=== PATIENT | male | born 1935 | race Caucasian/White ===

== ENCOUNTER 2016-09-30 20:02 | Inpatient (IN) | payer MEDICARE, BC ==
[~2016-09-30] VITALS: Ht 177.8 cm; Wt 99.8 kg
--- NOTE | 2016-09-30 20:19 | PHYS DOC ---
Past Medical History Past Medical History: Diabetes-Type II Additional Past Medical Histor: sleep apnea Past Surgical History: Knee Replacement Additional Past Surgical Histo: cataracts, surgery for sleep apnea Alcohol Use: None Drug Use: None Adult General Chief Complaint Chief Complaint: ABDOMINAL PAIN HPI HPI Patient is a 81 year old female who presents with epigastric/lower chest discomfort. He reports about 3 hours ago he had onset of a fullness/pain in his lower chest/epigastrium. He is also little bit short of breath. No clear inciting or mitigating factors. On his way to the ED, he started having a mild nagging pain between his shoulder blades as well. He did not take any meds for symptoms prior to coming to the emergency department. No prior similar episodes. Review of Systems Review of Systems Constitutional: Denies fever or chills Eyes: Denies change in visual acuity or eye pain HENT: Denies nasal congestion or sore throat Respiratory: Denies cough or shortness of breath Cardiovascular: Lower chest discomfort GI: Epigastric pain. Denies nausea, vomiting, bloody stools or diarrhea : Denies dysuria or hematuria Musculoskeletal: Mild nagging pain between shoulder blades Integument: Denies rash or skin lesions Neurologic: Denies headache, focal weakness or sensory changes Current Medications Current Medications Current Medications Medications (Trade) Dose Ordered Sig/Olivia Start Time Stop Time Status Last Admin Dose Admin Aspirin (Children'S Aspirin) 324 mg 1X ONCE 09/30/16 20:45 09/30/16 20:46 DC 09/30/16 20:29 324 MG Morphine Sulfate 4 mg 1X ONCE 09/30/16 21:15 09/30/16 21:16 DC 09/30/16 21:20 4 MG Nitroglycerin (Nitrostat) 0.4 mg PRN Q5MIN PRN 09/30/16 20:30 09/30/16 23:59 09/30/16 20:33 0.4 MG Allergies Allergies Allergies Coded Allergies Type Severity Reaction Last Updated Verified meperidine Allergy Unknown 02/28/16 Yes Physical Exam Physical Exam Constitutional: Well developed, well nourished, no acute distress, non-toxic appearance HENT: Normocephalic, atraumatic, bilateral external ears normal Eyes: EOMI, conjunctiva normal, no discharge Neck: Normal range of motion, no stridor Cardiovascular: Heart rate normal, regular rhythm, murmur noted Lungs & Thorax: Bilateral breath sounds clear to auscultation Abdomen: Bowel sounds normal, soft, non-distended, mild epigastric TTP without guarding or rebound Skin: Warm, dry, no erythema, no rash Back: No tenderness, no lesion or deformity Extremities: No obvious deformity, BLE edema. Equal b/l radial pulses. Neurologic: Alert and oriented X 3, no gross deficits noted Current Patient Data Vital Signs Vital Signs Date Time Temp Pulse Resp B/P Pulse Ox O2 Delivery O2 Flow Rate FiO2 09/30/16 21:20 23 92 Room Air 09/30/16 20:37 99 139/75 09/30/16 20:05 98.1 98.1 Lab Values Laboratory Tests Test 09/30/16 20:25 White Blood Count 12.0x10^3/uL (4.0-11.0) H Red Blood Count 4.56x10^6/uL (4.30-5.70) Hemoglobin 13.6g/dL (13.0-17.5) Hematocrit 41.2% (39.0-53.0) Mean Corpuscular Volume 91fL (79-100) Mean Corpuscular Hemoglobin 30pg (25-35) Mean Corpuscular Hemoglobin Concent 33g/dL (31-37) Red Cell Distribution Width 14.5% (11.5-14.5) Platelet Count 226x10^3/uL (140-400) Neutrophils (%) (Auto) 70% (31-73) Lymphocytes (%) (Auto) 21% (24-48) L Monocytes (%) (Auto) 8% (0-9) Eosinophils (%) (Auto) 1% (0-3) Basophils (%) (Auto) 0% (0-3) Neutrophils # (Auto) 8.4x10^3uL (1.8-7.7) H Lymphocytes # (Auto) 2.5x10^3/uL (1.0-4.8) Monocytes # (Auto) 1.0x10^3/uL (0.0-1.1) Eosinophils # (Auto) 0.1x10^3/uL (0.0-0.7) Basophils # (Auto) 0.0x10^3/uL (0.0-0.2) Sodium Level 139mmol/L (136-145) Potassium Level 3.6mmol/L (3.5-5.1) Chloride Level 102mmol/L (98-107) Carbon Dioxide Level 25mmol/L (21-32) Anion Gap 12 (6-14) Blood Urea Nitrogen 20mg/dL (8-26) Creatinine 0.9mg/dL (0.7-1.3) Estimated GFR (Cockcroft-Gault) 80.6 Glucose Level 179mg/dL (70-99) H Calcium Level 9.1mg/dL (8.5-10.1) Total Bilirubin 0.3mg/dL (0.2-1.0) Direct Bilirubin 0.1mg/dL (0.0-0.2) Aspartate Amino Transferase (AST) 11U/L (15-37) L Alanine Aminotransferase (ALT) 21U/L (16-63) Alkaline Phosphatase 117U/L (46-116) H Troponin I Quantitative < 0.017ng/mL (0.000-0.055) FO-Bti-Y-Type Natriuretic Peptide 32pg/mL (0-449) Total Protein 7.7g/dL (6.4-8.2) Albumin 3.8g/dL (3.4-5.0) Lipase 87U/L (73-393) Laboratory Tests 09/30/16 20:25 Laboratory Tests 09/30/16 20:25 EKG EKG EKG (my read): sinus rhythm, rate 91, LAD, prolonged OH interval, no acute ischemic changes Radiology/Procedures Radiology/Procedures CXR (my read): No acute abnormality Course & Med Decision Making Course & Med Decision Making Pertinent Labs and Imaging studies reviewed. (See chart for details) Patient is 81-year-old male who presents with lower chest/epigastric discomfort as well as shortness of breath. Obvious concern for possibility of ACS. Will check EKG, chest x-ray, labs to evaluate. Aspirin and nitroglycerin ordered. EKG without acute ischemic changes by my reading. Chest x-ray okay per my read. Labs notable for mild leukocytosis. Troponin within normal limits. Discussed results with patient, who continues to have a little discomfort. Dose of morphine ordered, which helped improve pain. Discussed with Dr. Sotomayor, will admit under his care for further evaluation and treatment. Cardiology consult entered. Dragon Disclaimer Dragon Disclaimer This electronic medical record was generated, in whole or in part, using a voice recognition dictation system. Departure Departure Impression: Primary Impression: Chest pain Additional Impression: SOB (shortness of breath) Disposition: 09 ADMITTED INPATIENT Admitting Physician: Candido Sotomayor Condition: STABLE Referrals: ROBERT MIRANDA MD (PCP) Problem Qualifiers RIAZ ELENA MD Sep 30, 2016 20:19
[2016-09-30] MEDS ORDERED: NITROGLYCERIN SUBLINGUAL 0.4 MG BOTTLE OF 25. SL PRN ×2 (20:30→21:45)
[2016-09-30 20:31] LABS: BASO % 0 % (0-3); EOS % 1 % (0-3); HEMATOCRIT 41.2 % (39.0-53.0); HEMOGLOBIN 13.6 g/dL (13.0-17.5); LYMPH # 2.5 x10^3/uL (1.0-4.8); LYMPH % 21 % (24-48); MEAN CORPUSCULAR HEMOGLOBIN 30 pg (25-35); MEAN CORPUSCULAR HGB CONC 33 g/dL (31-37); MEAN CORPUSCULAR VOLUME 91 fL (79-100); MONO % 8 % (0-9); NEUT % 70 % (31-73); PLATELET COUNT 226 x10^3/uL (140-400); RED BLOOD COUNT 4.56 x10^6/uL (4.30-5.70); RED CELL DISTRIBUTION WIDTH 14.5 % (11.5-14.5)
[2016-09-30 20:45] LABS: CALCIUM 9.1 mg/dL (8.5-10.1); CREATININE 0.9 mg/dL (0.7-1.3); GFR 80.6; POTASSIUM 3.6 mmol/L (3.5-5.1)
[2016-09-30] MEDS ORDERED: ASPIRIN 81 MG TAB.CHEW PO ONE (20:45)
[2016-09-30 20:51] LABS: ALBUMIN 3.8 g/dL (3.4-5.0); DIRECT BILIRUBIN 0.1 mg/dL (0.0-0.2); TOTAL BILIRUBIN 0.3 mg/dL (0.2-1.0); TOTAL PROTEIN 7.7 g/dL (6.4-8.2)
[2016-09-30] MEDS ORDERED: MORPHINE SULFATE 4 MG/ML DISP.SYRIN. IV ONE (21:15)
[2016-09-30] MEDS ORDERED: ONDANSETRON PF 4 MG/2 ML VIAL. IV PRN (21:45)
[2016-09-30] MEDS ORDERED: DEXTROSE 50% 25 GM / 50ML DISP.SYRIN. IV PRN (21:45)
[2016-09-30] MEDS ORDERED: ACETAMINOPHEN 325 MG TABLET. PO PRN (21:45)
[2016-09-30 23:18] VITALS: BP 141/80
[2016-10-01] VITALS (7 sets, daily range): BP systolic 112–134; BP diastolic 63–84
[2016-10-01] MEDS ORDERED: LEVO50TA (04:26)
[2016-10-01] MEDS ORDERED: INSU100I13 (04:26)
[2016-10-01] MEDS ORDERED: INSU100I17 (04:26)
[2016-10-01] MEDS ORDERED: METF10002 (04:26)
--- NOTE | 2016-10-01 06:19 | EKG ---
[facility] [address] [place] [address] Test Date: 2016-09-30 Test Time: 20:11:04 Pat Name: ANDRES MARTINEZ Department: Room: Gender: M [employer]ile [employer] Technician: : [id number] Requested By: RIAZ ELENA Order Number: [id number] Reading MD: Measurements Intervals [place] Rate: 91 P: 12 CO: 216 QRS: -24 QRSD: 90 T: 28 QT: 360 QTc: 444 Interpretive Statements SINUS RHYTHM PROLONGED CO INTERVAL LEFTWARD AXIS ABNORMAL ECG RI6.01 No previous ECG available for comparison
[2016-10-01] MEDS ORDERED: INSULIN ASPART 300 UNITS/3 ML INSULN.PEN SQ SCH (08:00)
[2016-10-01] MEDS: MORPHINE SULFATE 4 MG/ML DISP.SYRIN. IV PRN ×2 (08:52→15:05)
[2016-10-01 09:06] LABS: BILIRUBIN,URINE NEGATIVE (NEG); GLUCOSE,URINE NEGATIVE (NEG); NITRITE,URINE NEGATIVE (NEG)
--- NOTE | 2016-10-01 09:27 | RAD ---
Indication chest pain and shortness of breath. PA and lateral views of the chest were obtained. Comparison is made to an examination 02/28/2016. There are chronic changes. There is moderate hyperexpansion. An acute finding is not seen. The heart and pulmonary vessels are within normal limits. A small hiatus hernia is noted. There are degenerative changes in the thoracic spine and about the right shoulder. IMPRESSION: Chronic changes. No acute finding. No significant change
[2016-10-01 09:30] LABS: BACTERIA,URINE FEW /HPF (0-FEW); PROTEIN,URINE NEGATIVE (NEG-TRACE); RBC,URINE RARE /HPF (0-2); WBC,URINE OCC /HPF (0-4)
[2016-10-01] MEDS ORDERED: ACETAMINOPHEN 325 MG TABLET. PO PRN (09:30)
[2016-10-01] MEDS ORDERED: DEXTROSE 50% 25 GM / 50ML DISP.SYRIN. IV PRN (09:30)
[2016-10-01] MEDS ORDERED: ALBUTEROL SULFATE 2.5 MG/3 ML NEBU. NEB PRN (09:30)
[2016-10-01] MEDS ORDERED: hydrALAZINE 20 MG/ML VIAL. IVP PRN (09:30)
[2016-10-01] MEDS ORDERED: ONDANSETRON PF 4 MG/2 ML VIAL. IV PRN (09:30)
[2016-10-01] MEDS: LEVOTHYROXINE 50 MCG TABLET PO SCH (10:00)
[2016-10-01] MEDS: METFORMIN 1,000 MG TABLET PO SCH (10:00)
--- NOTE | 2016-10-01 11:37 | PDOC1 ---
History and Physical Current Problem List Problem List Problems Medical Problems: (1) Chest pain Status: Acute (2) SOB (shortness of breath) Status: Acute Current Medications Current Medications Current Medications Medications (Trade) Dose Ordered Sig/Olivia Start Time Stop Time Status Last Admin Dose Admin Acetaminophen (Tylenol) 325 mg PRN Q6HRS PRN 10/01/16 09:30 Acetaminophen/ Hydrocodone Bitart (Lortab 5/325) 1 tab PRN Q6HRS PRN 10/01/16 09:30 Albuterol Sulfate (Ventolin Neb Soln) 2.5 mg PRN Q4HRS PRN 10/01/16 09:30 Aspirin (Children'S Aspirin) 324 mg 1X ONCE 09/30/16 20:45 09/30/16 20:46 DC 09/30/16 20:29 324 MG Dextrose 12.5 gm PRN Q15MIN PRN 10/01/16 09:30 UNV Hydralazine HCl (Apresoline) 10 mg PRN Q4HRS PRN 10/01/16 09:30 Insulin Aspart (Novolog) 0-9 UNITS TIDWMEALS 10/01/16 12:00 Insulin Detemir (Levemir) 10 units QHS 10/01/16 21:00 Levothyroxine Sodium (Synthroid) 50 mcg DAILY07 10/01/16 10:00 Metformin HCl (Glucophage) 1,000 mg DAILYWBKFT 10/01/16 10:00 Morphine Sulfate 4 mg PRN Q2HR PRN 09/30/16 21:45 10/01/16 21:44 10/01/16 08:52 4 MG Nitroglycerin (Nitrostat) 0.4 mg PRN Q5MIN PRN 09/30/16 21:45 10/01/16 21:44 Ondansetron HCl (Zofran) 4 mg PRN Q8HRS PRN 10/01/16 09:30 Allergies Allergies Allergies Coded Allergies Type Severity Reaction Last Updated Verified meperidine Allergy Unknown 02/28/16 Yes ROS Review of System CONSTITUTIONAL: NO FEVER EYES: No recent changes SKIN: No rash or itching CARDIOVASCULAR: No chest pain, syncope, palpitations, or edema RESPIRATORY: No SOB or cough GASTROINTESTINAL: EPIGASTRIC ABDOMINAL PAIN NEUROLOGICAL: CONFUSION ENDOCRINE: No cold or heat intolerance GENITOURINARY: URINATION THIS AM MUSCULOSKELETAL: No back pain or joint pain LYMPHATICS: No enlarged lymph nodes PSYCHIATRIC: No anxiety or depression Physical Exam Physical Exam GEN.: No apparent distress. Alert and oriented. HEENT: Head is normocephalic, atraumatic NECK: Supple. NO JVD LUNGS: Clear to auscultation. normal air flow HEART: RRR, S1, S2 present. Peripheral pulses intact ABDOMEN: Soft, nontender. Positive bowel sounds. EXTREMITIES: Without any cyanosis. NEUROLOGIC: slow to respond, alert, oriented to self, not able to provide good hx, PSYCHIATRIC: unknown baseline,mild confusion SKIN: No visible ulcerations Vitals Vitals Vital Signs Date Time Temp Pulse Resp B/P Pulse Ox O2 Delivery O2 Flow Rate FiO2 10/01/16 11:05 98.3 110 20 124/73 95 Room Air 98.3 Labs Labs Laboratory Tests Test 09/30/16 20:25 09/30/16 23:01 10/01/16 05:35 10/01/16 07:00 White Blood Count 12.0x10^3/uL (4.0-11.0) Red Blood Count 4.56x10^6/uL (4.30-5.70) Hemoglobin 13.6g/dL (13.0-17.5) Hematocrit 41.2% (39.0-53.0) Mean Corpuscular Volume 91fL (79-100) Mean Corpuscular Hemoglobin 30pg (25-35) Mean Corpuscular Hemoglobin Concent 33g/dL (31-37) Red Cell Distribution Width 14.5% (11.5-14.5) Platelet Count 226x10^3/uL (140-400) Neutrophils (%) (Auto) 70% (31-73) Lymphocytes (%) (Auto) 21% (24-48) Monocytes (%) (Auto) 8% (0-9) Eosinophils (%) (Auto) 1% (0-3) Basophils (%) (Auto) 0% (0-3) Neutrophils # (Auto) 8.4x10^3uL (1.8-7.7) Lymphocytes # (Auto) 2.5x10^3/uL (1.0-4.8) Monocytes # (Auto) 1.0x10^3/uL (0.0-1.1) Eosinophils # (Auto) 0.1x10^3/uL (0.0-0.7) Basophils # (Auto) 0.0x10^3/uL (0.0-0.2) Sodium Level 139mmol/L (136-145) Potassium Level 3.6mmol/L (3.5-5.1) Chloride Level 102mmol/L (98-107) Carbon Dioxide Level 25mmol/L (21-32) Anion Gap 12 (6-14) Blood Urea Nitrogen 20mg/dL (8-26) Creatinine 0.9mg/dL (0.7-1.3) Estimated GFR (Cockcroft-Gault) 80.6 Glucose Level 179mg/dL (70-99) Calcium Level 9.1mg/dL (8.5-10.1) Total Bilirubin 0.3mg/dL (0.2-1.0) Direct Bilirubin 0.1mg/dL (0.0-0.2) Aspartate Amino Transf (AST/SGOT) 11U/L (15-37) Alanine Aminotransferase (ALT/SGPT) 21U/L (16-63) Alkaline Phosphatase 117U/L (46-116) Troponin I Quantitative < 0.017ng/mL (0.000-0.055) < 0.017ng/mL (0.000-0.055) UU-Ijv-K-Type Natriuretic Peptide 32pg/mL (0-449) Total Protein 7.7g/dL (6.4-8.2) Albumin 3.8g/dL (3.4-5.0) Lipase 87U/L (73-393) Glucose (Fingerstick) 183mg/dL (70-99) Urine Collection Type Unknown Urine Color Yellow Urine Clarity Clear Urine pH 7.0 Urine Specific [place] 1.025 Urine Protein Negativemg/dL (NEG-TRACE) Urine Glucose (UA) Negativemg/dL (NEG) Urine Ketones (Stick) Tracemg/dL (NEG) Urine Blood Negative (NEG) Urine Nitrite Negative (NEG) Urine Bilirubin Negative (NEG) Urine Urobilinogen Dipstick 1.0mg/dL (0.2 mg/dL) Urine Leukocyte Esterase Negative (NEG) Urine RBC Rare/HPF (0-2) Urine WBC Occ/HPF (0-4) Urine Squamous Epithelial Cells None/LPF Urine Bacteria Few/HPF (0-FEW) Urine Mucus Slight/LPF Test 10/01/16 07:34 10/01/16 09:35 10/01/16 11:32 Glucose (Fingerstick) 190mg/dL (70-99) 208mg/dL (70-99) Troponin I Quantitative < 0.017ng/mL (0.000-0.055) Laboratory Tests Test 09/30/16 20:25 09/30/16 23:01 10/01/16 05:35 10/01/16 07:00 White Blood Count 12.0x10^3/uL (4.0-11.0) Red Blood Count 4.56x10^6/uL (4.30-5.70) Hemoglobin 13.6g/dL (13.0-17.5) Hematocrit 41.2% (39.0-53.0) Mean Corpuscular Volume 91fL (79-100) Mean Corpuscular Hemoglobin 30pg (25-35) Mean Corpuscular Hemoglobin Concent 33g/dL (31-37) Red Cell Distribution Width 14.5% (11.5-14.5) Platelet Count 226x10^3/uL (140-400) Neutrophils (%) (Auto) 70% (31-73) Lymphocytes (%) (Auto) 21% (24-48) Monocytes (%) (Auto) 8% (0-9) Eosinophils (%) (Auto) 1% (0-3) Basophils (%) (Auto) 0% (0-3) Neutrophils # (Auto) 8.4x10^3uL (1.8-7.7) Lymphocytes # (Auto) 2.5x10^3/uL (1.0-4.8) Monocytes # (Auto) 1.0x10^3/uL (0.0-1.1) Eosinophils # (Auto) 0.1x10^3/uL (0.0-0.7) Basophils # (Auto) 0.0x10^3/uL (0.0-0.2) Sodium Level 139mmol/L (136-145) Potassium Level 3.6mmol/L (3.5-5.1) Chloride Level 102mmol/L (98-107) Carbon Dioxide Level 25mmol/L (21-32) Anion Gap 12 (6-14) Blood Urea Nitrogen 20mg/dL (8-26) Creatinine 0.9mg/dL (0.7-1.3) Estimated GFR (Cockcroft-Gault) 80.6 Glucose Level 179mg/dL (70-99) Calcium Level 9.1mg/dL (8.5-10.1) Total Bilirubin 0.3mg/dL (0.2-1.0) Direct Bilirubin 0.1mg/dL (0.0-0.2) Aspartate Amino Transf (AST/SGOT) 11U/L (15-37) Alanine Aminotransferase (ALT/SGPT) 21U/L (16-63) Alkaline Phosphatase 117U/L (46-116) Troponin I Quantitative < 0.017ng/mL (0.000-0.055) < 0.017ng/mL (0.000-0.055) FJ-Tmn-X-Type Natriuretic Peptide 32pg/mL (0-449) Total Protein 7.7g/dL (6.4-8.2) Albumin 3.8g/dL (3.4-5.0) Lipase 87U/L (73-393) Glucose (Fingerstick) 183mg/dL (70-99) Urine Collection Type Unknown Urine Color Yellow Urine Clarity Clear Urine pH 7.0 Urine Specific [place] 1.025 Urine Protein Negativemg/dL (NEG-TRACE) Urine Glucose (UA) Negativemg/dL (NEG) Urine Ketones (Stick) Tracemg/dL (NEG) Urine Blood Negative (NEG) Urine Nitrite Negative (NEG) Urine Bilirubin Negative (NEG) Urine Urobilinogen Dipstick 1.0mg/dL (0.2 mg/dL) Urine Leukocyte Esterase Negative (NEG) Urine RBC Rare/HPF (0-2) Urine WBC Occ/HPF (0-4) Urine Squamous Epithelial Cells None/LPF Urine Bacteria Few/HPF (0-FEW) Urine Mucus Slight/LPF Test 10/01/16 07:34 10/01/16 09:35 10/01/16 11:32 Glucose (Fingerstick) 190mg/dL (70-99) 208mg/dL (70-99) Troponin I Quantitative < 0.017ng/mL (0.000-0.055) VTE Prophylaxis Ordered VTE Prophylaxis Devices: Yes VTE Pharmacological Prophylaxi: Contraindicated VASIREDDI,ERLINDA R MD Oct 01, 2016 11:37
[2016-10-01] MEDS ORDERED: IV NORMAL SALINE 1000ML BAG 1,000 ML IV ONE (11:45)
[2016-10-01] MEDS: PANTOPRAZOLE 40 MG TABLET. PO SCH (12:00)
[2016-10-01] MEDS: INSULIN ASPART 300 UNITS/3 ML INSULN.PEN SQ SCH ×2 (12:00→19:00)
--- NOTE | 2016-10-01 12:07 | HP ---
ADMIT DATE: 10/01/2016 CHIEF COMPLAINT: Abdominal pain. HISTORY OF PRESENT ILLNESS: An 81-year-old male patient presented to the ER with complaints of epigastric lower chest pain, presented 3-4 hours prior to arrival and described it as a fullness. Denies any radiation, sometimes she will have shoulder pain and at the time of my examination, the patient is still complaining of mild abdominal pain, but it is better. However, he is confused and his alertness is decreased and very slow to respond to my questions. As per RN, he had urinary incontinence last night and also she says he is whole different personal compared to his admission time. I am not able to get good history from patient and I reviewed his old records, no previous admission seen. However, as per the ER, he has a past history of diabetes and sleep apnea. PAST MEDICAL HISTORY: Type 2 diabetes mellitus and sleep apnea. PAST SURGICAL HISTORY: Knee replacement and cataracts. PERSONAL HISTORY: No smoking, no alcohol, no drug abuse. FAMILY HISTORY: Not able to obtain. ALLERGIES: Meperidine. REVIEW OF SYSTEMS AND PHYSICAL EXAMINATION: Please see my electronic H and P. LABORATORY DATA: Chemistry: Sodium 139, potassium 3.6, chloride is 102, anion gap is 12, BUN is 20, creatinine is 0.9, GFR is 80.6, glucose 179, AST 21, ALT is 11, and alkaline phosphatase 117. Hematology: WBC 12.0, hemoglobin is 13.6 and MCV is 91, and platelets is 226. UA is negative for UTI. IMAGING STUDIES: Chest x-ray: No acute finding seen. EKG personally reviewed, no acute ST-T wave changes seen. ASSESSMENT AND PLAN: 1. Acute abdominal pain, Epigastric unclear etiology, possible GERD vs gastritis vs cholecystitis. 2. Altered mental status. Differentials are seizures versus encephalopathy. 3. Diabetes mellitus. PLAN: 1. The patient has been observed in the hospital and he has 3 sets of troponins, which are negative for any ACS. At this time, the patient is having localized epigastric abdominal pain and I will start him on Protonix. 2. Also continue IV hydration. Keep him n.p.o. at this time. 3. We will consult Gastroenterology. 4. I ordered a CT of the abdomen and CT of the head stat. If the patient shows any signs of worsening mental status, I will consult Neurology. 5. At this time he is alert, but very slow to respond. 6. We will ask Physical Therapy and Occupational Therapy to evaluate him. 7. Further recommendations based on imaging studies and lab workup. 8. No immediate family members available at this time and I did discuss with RN, we will try to get hold of family to provide update about patient's clinical status. OVERALL PROGNOSIS: Guarded. ERLINDA STEINER MD DR: MINDY/tammy JOB#: [id number] / [id number] d/w Dr Valentine, he will order ECHO, consult GS for acute cholecystitis, and Neurology for confusion NPO IVF AT 75Mls/hr. MTDD
[2016-10-01] MEDS ORDERED: IOHEXOL 300 MG/ML 100ML VIAL. IV ONE (12:15)
--- NOTE | 2016-10-01 12:35 | RAD ---
Indication altered mental status. Noncontrast images of the head were obtained. No prior imaging of the head is available. An acute calvarial finding is not seen. The visualized paranasal sinuses appear unremarkable. There is no subdural or epidural hematoma. There is underlying atrophy. No mass or midline shift is seen. Acute finding is not apparent. There is no evidence of hemorrhage. IMPRESSION: Chronic changes. No acute finding seen PQRS Compliance Statement: One or more of the following individualized dose reduction techniques were utilized for this examination: 1. Automated exposure control 2. Adjustment of the mA and/or kV according to patient size 3. Use of iterative reconstruction technique
--- NOTE | 2016-10-01 12:55 | PDOC2 ---
CONSULT Date of Consult Date of Consult DATE: 10/01/16 TIME: 12:39 Reason for Consult Reason for Consult: Chest pain Referring Physician Referring Physician: Dr. Oswald Identification/Chief Complaint Chief Complaint abdominal pain/ chest pain Source Source: Patient History of Present Illness Reason for Visit: Mr. Sullivan is an 81yo M who came to the ED last night for epigastric lower chest pain which had started a few hours prior to arrival. He called it a fullness in his stomach and chest. He admits some radiation to his mid back, below the shoulder blades. He is confused at this time, which the nurse said came on suddenly last night. As per nurse, he had urinary incontinence last night. RN's phone conversations with his daughter state that he is whole different person; this is different than his admission time and his baseline. He is difficult with history, but chart review show past history of diabetes and sleep apnea. Past Medical History Past Medical History Sleep Apnea Cardiovascular: No pertinent hx Endocrine: Diabetes Past Surgical History Past Surgical History knee surgery Past Surgical History: Cataract Removal Family History Family History: Family History Unknown Social History No ALCOHOL: none Drugs: None Current Problem List Problem List Problems Medical Problems: (1) Chest pain Status: Acute (2) SOB (shortness of breath) Status: Acute Current Medications Current Medications Current Medications Aspirin (Children'S Aspirin) 324 mg 1X ONCE PO Last administered on at 20:29; Start 09/30/16 at 20:45; Stop 09/30/16 at 20:46; Status DC Nitroglycerin (Nitrostat) 0.4 mg PRN Q5MIN PRN SL CP RATING > 1/10 Last administered on 09/30/16at 20:33; Start 09/30/16 at 20:30; Stop 09/30/16 at 23 :59; Status DC Morphine Sulfate 4 mg 1X ONCE IV Last administered on 09/30/16at 21:20; Start 09/30/16 at 21:15; Stop 09/30/16 at 21:16; Status DC Ondansetron HCl (Zofran) 4 mg PRN Q8HRS PRN IV NAUSEA/VOMITING; Start at 21:45; Stop 10/01/16 at 21:44 Morphine Sulfate 4 mg PRN Q2HR PRN IV PAIN Last administered on 12/30/16at 08: 52; Start 09/30/16 at 21:45; Stop 10/01/16 at 21:44 Acetaminophen (Tylenol) 650 mg PRN Q4HRS PRN PO FEVER Last administered on at 02:53; Start 09/30/16 at 21:45; Stop 10/01/16 at 21:44 Nitroglycerin (Nitrostat) 0.4 mg PRN Q5MIN PRN SL CHEST PAIN; Start 09/30/16 at 21:45; Stop 10/01/16 at 21:44 Insulin Aspart (Novolog) 0-7 UNITS TIDWMEALS SQ Last administered on at 08:57; Start 10/01/16 at 08:00; Stop 10/01/16 at 09:35; Status DC Dextrose 12.5 gm PRN Q15MIN PRN IV SEE COMMENTS; Start 09/30/16 at 21:45 Acetaminophen (Tylenol) 325 mg PRN Q6HRS PRN PO MILD PAIN / TEMP; Start at 09:30 Acetaminophen/ Hydrocodone Bitart (Lortab 5/325) 1 tab PRN Q6HRS PRN PO MODERATE TO SEVERE PAIN; Start 10/01/16 at 09:30 Hydralazine HCl (Apresoline) 10 mg PRN Q4HRS PRN IVP ELEVATED BP, SEE COMMENTS ; Start 10/01/16 at 09:30 Ondansetron HCl (Zofran) 4 mg PRN Q8HRS PRN IV NAUSEA/VOMITING 1ST CHOICE; Start 10/01/16 at 09:30 Albuterol Sulfate (Ventolin Neb Soln) 2.5 mg PRN Q4HRS PRN NEB SHORTNESS OF BREATH; Start 10/01/16 at 09:30 Levothyroxine Sodium (Synthroid) 50 mcg DAILY07 PO ; Start 10/01/16 at 10:00 Metformin HCl (Glucophage) 1,000 mg DAILYWBKFT PO ; Start 10/01/16 at 10:00 Insulin Detemir (Levemir) 10 units QHS SQ ; Start 10/01/16 at 21:00 Insulin Aspart (Novolog) 0-9 UNITS TIDWMEALS SQ ; Start 10/01/16 at 12:00 Dextrose 12.5 gm 12.5 gm PRN Q15MIN PRN IV SEE COMMENTS; Start 10/01/16 at 09: 30; Status UNV Sodium Chloride (Iv Sodium Chloride 0.9% 1000ml Bag) 1,000 ml @ 75 mls/hr 1X ONCE IV ; Start 10/01/16 at 11:45; Stop 10/02/16 at 01:04 Pantoprazole Sodium (Protonix) 40 mg DAILYAC PO ; Start 10/01/16 at 12:00 Iohexol (Omnipaque 300 Mg/ml) 75 ml 1X ONCE IV Last administered on at 12:21; Start 10/01/16 at 12:15; Stop 10/01/16 at 12:16; Status DC Active Scripts Active Reported Metformin Hcl 1,000 Mg Tablet Synthroid (Levothyroxine Sodium) 50 Mcg Tablet Lantus Solostar (Insulin Glargine,Hum.rec.anlog) 100 Unit/1 Ml Insuln.pen Novolog Flexpen (Insulin Aspart) 100 Unit/1 Ml Insuln.pen Allergies Allergies: Coded Allergies: meperidine (Verified Allergy, Unknown, 02/28/16) ROS PSYCHOLOGICAL ROS: YES: Disorientation Respiratory: YES: Shortness of breath Cardiovascular: yes Chest Pain Gastrointestinal: Yes Abdominal Pain Physical Exam General: Alert, No acute distress, Other (confused, alert to self) Lungs: Clear to auscultation, Other (decreased breath sounds) Heart: Regular rate, Normal S1, Normal S2, Other (S3. Blowing 2/6 systolic murmur over apex ) Abdomen: Soft, Other (tender epigastric) Extremities: No clubbing, No cyanosis, No edema Psych/Mental Status: Other (confused) Vitals VITALS Vital Signs Date Time Temp Pulse Resp B/P Pulse Ox O2 Delivery O2 Flow Rate FiO2 10/01/16 11:05 98.3 110 20 124/73 95 Room Air 98.3 Labs Labs Laboratory Tests Test 09/30/16 20:25 09/30/16 23:01 10/01/16 05:35 10/01/16 07:00 White Blood Count 12.0x10^3/uL (4.0-11.0) Red Blood Count 4.56x10^6/uL (4.30-5.70) Hemoglobin 13.6g/dL (13.0-17.5) Hematocrit 41.2% (39.0-53.0) Mean Corpuscular Volume 91fL (79-100) Mean Corpuscular Hemoglobin 30pg (25-35) Mean Corpuscular Hemoglobin Concent 33g/dL (31-37) Red Cell Distribution Width 14.5% (11.5-14.5) Platelet Count 226x10^3/uL (140-400) Neutrophils (%) (Auto) 70% (31-73) Lymphocytes (%) (Auto) 21% (24-48) Monocytes (%) (Auto) 8% (0-9) Eosinophils (%) (Auto) 1% (0-3) Basophils (%) (Auto) 0% (0-3) Neutrophils # (Auto) 8.4x10^3uL (1.8-7.7) Lymphocytes # (Auto) 2.5x10^3/uL (1.0-4.8) Monocytes # (Auto) 1.0x10^3/uL (0.0-1.1) Eosinophils # (Auto) 0.1x10^3/uL (0.0-0.7) Basophils # (Auto) 0.0x10^3/uL (0.0-0.2) Sodium Level 139mmol/L (136-145) Potassium Level 3.6mmol/L (3.5-5.1) Chloride Level 102mmol/L (98-107) Carbon Dioxide Level 25mmol/L (21-32) Anion Gap 12 (6-14) Blood Urea Nitrogen 20mg/dL (8-26) Creatinine 0.9mg/dL (0.7-1.3) Estimated GFR (Cockcroft-Gault) 80.6 Glucose Level 179mg/dL (70-99) Calcium Level 9.1mg/dL (8.5-10.1) Total Bilirubin 0.3mg/dL (0.2-1.0) Direct Bilirubin 0.1mg/dL (0.0-0.2) Aspartate Amino Transf (AST/SGOT) 11U/L (15-37) Alanine Aminotransferase (ALT/SGPT) 21U/L (16-63) Alkaline Phosphatase 117U/L (46-116) Troponin I Quantitative < 0.017ng/mL (0.000-0.055) < 0.017ng/mL (0.000-0.055) DR-Rck-O-Type Natriuretic Peptide 32pg/mL (0-449) Total Protein 7.7g/dL (6.4-8.2) Albumin 3.8g/dL (3.4-5.0) Lipase 87U/L (73-393) Glucose (Fingerstick) 183mg/dL (70-99) Urine Collection Type Unknown Urine Color Yellow Urine Clarity Clear Urine pH 7.0 Urine Specific [place] 1.025 Urine Protein Negativemg/dL (NEG-TRACE) Urine Glucose (UA) Negativemg/dL (NEG) Urine Ketones (Stick) Tracemg/dL (NEG) Urine Blood Negative (NEG) Urine Nitrite Negative (NEG) Urine Bilirubin Negative (NEG) Urine Urobilinogen Dipstick 1.0mg/dL (0.2 mg/dL) Urine Leukocyte Esterase Negative (NEG) Urine RBC Rare/HPF (0-2) Urine WBC Occ/HPF (0-4) Urine Squamous Epithelial Cells None/LPF Urine Bacteria Few/HPF (0-FEW) Urine Mucus Slight/LPF Test 10/01/16 07:34 10/01/16 09:35 10/01/16 11:32 Glucose (Fingerstick) 190mg/dL (70-99) 208mg/dL (70-99) Troponin I Quantitative < 0.017ng/mL (0.000-0.055) Laboratory Tests Test 09/30/16 20:25 09/30/16 23:01 10/01/16 05:35 10/01/16 07:00 White Blood Count 12.0x10^3/uL (4.0-11.0) Red Blood Count 4.56x10^6/uL (4.30-5.70) Hemoglobin 13.6g/dL (13.0-17.5) Hematocrit 41.2% (39.0-53.0) Mean Corpuscular Volume 91fL (79-100) Mean Corpuscular Hemoglobin 30pg (25-35) Mean Corpuscular Hemoglobin Concent 33g/dL (31-37) Red Cell Distribution Width 14.5% (11.5-14.5) Platelet Count 226x10^3/uL (140-400) Neutrophils (%) (Auto) 70% (31-73) Lymphocytes (%) (Auto) 21% (24-48) Monocytes (%) (Auto) 8% (0-9) Eosinophils (%) (Auto) 1% (0-3) Basophils (%) (Auto) 0% (0-3) Neutrophils # (Auto) 8.4x10^3uL (1.8-7.7) Lymphocytes # (Auto) 2.5x10^3/uL (1.0-4.8) Monocytes # (Auto) 1.0x10^3/uL (0.0-1.1) Eosinophils # (Auto) 0.1x10^3/uL (0.0-0.7) Basophils # (Auto) 0.0x10^3/uL (0.0-0.2) Sodium Level 139mmol/L (136-145) Potassium Level 3.6mmol/L (3.5-5.1) Chloride Level 102mmol/L (98-107) Carbon Dioxide Level 25mmol/L (21-32) Anion Gap 12 (6-14) Blood Urea Nitrogen 20mg/dL (8-26) Creatinine 0.9mg/dL (0.7-1.3) Estimated GFR (Cockcroft-Gault) 80.6 Glucose Level 179mg/dL (70-99) Calcium Level 9.1mg/dL (8.5-10.1) Total Bilirubin 0.3mg/dL (0.2-1.0) Direct Bilirubin 0.1mg/dL (0.0-0.2) Aspartate Amino Transf (AST/SGOT) 11U/L (15-37) Alanine Aminotransferase (ALT/SGPT) 21U/L (16-63) Alkaline Phosphatase 117U/L (46-116) Troponin I Quantitative < 0.017ng/mL (0.000-0.055) < 0.017ng/mL (0.000-0.055) AL-Qbv-X-Type Natriuretic Peptide 32pg/mL (0-449) Total Protein 7.7g/dL (6.4-8.2) Albumin 3.8g/dL (3.4-5.0) Lipase 87U/L (73-393) Glucose (Fingerstick) 183mg/dL (70-99) Urine Collection Type Unknown Urine Color Yellow Urine Clarity Clear Urine pH 7.0 Urine Specific [place] 1.025 Urine Protein Negativemg/dL (NEG-TRACE) Urine Glucose (UA) Negativemg/dL (NEG) Urine Ketones (Stick) Tracemg/dL (NEG) Urine Blood Negative (NEG) Urine Nitrite Negative (NEG) Urine Bilirubin Negative (NEG) Urine Urobilinogen Dipstick 1.0mg/dL (0.2 mg/dL) Urine Leukocyte Esterase Negative (NEG) Urine RBC Rare/HPF (0-2) Urine WBC Occ/HPF (0-4) Urine Squamous Epithelial Cells None/LPF Urine Bacteria Few/HPF (0-FEW) Urine Mucus Slight/LPF Test 10/01/16 07:34 10/01/16 09:35 10/01/16 11:32 Glucose (Fingerstick) 190mg/dL (70-99) 208mg/dL (70-99) Troponin I Quantitative < 0.017ng/mL (0.000-0.055) Images Images CT head showed no acute findings. CT abdomen/ pelvis pending. Chest xray negative. Assessment/Plan Assessment/Plan Assessment: 1. lower chest pain 2. epigastric abdominal pain 3. AMS 4. DM Plan: - EKG no ST changes. Long ND showing 1st degree AV block. Negative trop. Chest Xray neg. - New AMS, CT head showed chronic atrophy with no acute changes. - S3 and blowing sys murmur, echo ordered - GI, PT/OT following as well Thank you for asking me to participate in the care of this pt NADINE ORR MD Oct 01, 2016 12:55
--- NOTE | 2016-10-01 13:57 | RAD ---
CT of the abdomen and pelvis with contrast, 10/01/2016: History: Abdominal pain Multidetector CT imaging was performed following an IV bolus injection of iodinated contrast material. No oral contrast material was administered for this exam. There are streaky opacities posteriorly in the lung bases, left greater than right, suggesting atelectasis/infiltrate. A component of scarring may be present. There is a moderate sized hiatal hernia. The liver is unremarkable. The gallbladder contains gas. Its [place] are thickened with streaky increased density in the pericholecystic fat compatible with inflammation. The appearance suggests emphysematous cholecystitis. No radiopaque gallstones are seen. The pancreas is atrophic. The spleen is of normal size. No renal abnormality is detected. There is moderate aortoiliac calcific plaquing. No abdominal or pelvic adenopathy is seen. Prostatic calcifications are present. Colonic diverticula are present, most numerous in the sigmoid region. No paracolonic inflammatory process is seen. The bowel loops are not dilated. No free fluid or free air is evident in the abdomen or pelvis. Extensive multilevel hypertrophic degenerative change is present in the spine. Bilateral pedicle screws attached to posterior fixation rods are present at L4 and L5. IMPRESSION: 1. Emphysematous cholecystitis. 2. Moderate colonic diverticulosis. 3. Moderate-sized hiatal hernia. 4. Mild to moderate streaky bibasilar atelectasis/infiltrate, left greater than right. Note: The findings were called to the patient's nurse on the floor at 1:55 PM on 10/01/2016.
[2016-10-01] MEDS: IV NORMAL SALINE 1000ML BAG 1,000 ML IV SCH (15:05)
[2016-10-01] MEDS ORDERED: IV RINGERS,LACTATED 1000ML 1,000 ML IV SCH (15:49)
--- NOTE | 2016-10-01 15:52 | PDOC ---
Infectious Disease Note ROS ROS GEN: Denies fevers, chills, sweats HEENT: Denies blurred vision, sore throat CV: Denies chest pain RESP: Denies shortness of air, cough GI: Denies n/v/d NEURO: Denies confusion, dizziness MSK: Denies weakness, joint pain/swelling Vital Sign Vital Signs Vital Signs Date Time Temp Pulse Resp B/P Pulse Ox O2 Delivery O2 Flow Rate FiO2 10/01/16 15:15 98.7 107 18 130/71 96 Room Air 98.7 Physical Exam PHYSICAL EXAM GENERAL: NAD, Alert HEENT: PERRL, OC/OP NECK: Supple, no JVD, no LN LUNGS: Clear HEART: S1S2, no gallop, no murmur ABD: Soft, NT, no organomegaly, no rebound EXT: No edema, no cyanosis MOBILITY MANAGER: Alert, oriented x 3, no focal neurologic deficit SKIN: No rash IV: ok Labs Lab Laboratory Tests Test 09/30/16 20:25 09/30/16 23:01 10/01/16 05:35 10/01/16 07:00 White Blood Count 12.0x10^3/uL (4.0-11.0) Red Blood Count 4.56x10^6/uL (4.30-5.70) Hemoglobin 13.6g/dL (13.0-17.5) Hematocrit 41.2% (39.0-53.0) Mean Corpuscular Volume 91fL (79-100) Mean Corpuscular Hemoglobin 30pg (25-35) Mean Corpuscular Hemoglobin Concent 33g/dL (31-37) Red Cell Distribution Width 14.5% (11.5-14.5) Platelet Count 226x10^3/uL (140-400) Neutrophils (%) (Auto) 70% (31-73) Lymphocytes (%) (Auto) 21% (24-48) Monocytes (%) (Auto) 8% (0-9) Eosinophils (%) (Auto) 1% (0-3) Basophils (%) (Auto) 0% (0-3) Neutrophils # (Auto) 8.4x10^3uL (1.8-7.7) Lymphocytes # (Auto) 2.5x10^3/uL (1.0-4.8) Monocytes # (Auto) 1.0x10^3/uL (0.0-1.1) Eosinophils # (Auto) 0.1x10^3/uL (0.0-0.7) Basophils # (Auto) 0.0x10^3/uL (0.0-0.2) Sodium Level 139mmol/L (136-145) Potassium Level 3.6mmol/L (3.5-5.1) Chloride Level 102mmol/L (98-107) Carbon Dioxide Level 25mmol/L (21-32) Anion Gap 12 (6-14) Blood Urea Nitrogen 20mg/dL (8-26) Creatinine 0.9mg/dL (0.7-1.3) Estimated GFR (Cockcroft-Gault) 80.6 Glucose Level 179mg/dL (70-99) Calcium Level 9.1mg/dL (8.5-10.1) Total Bilirubin 0.3mg/dL (0.2-1.0) Direct Bilirubin 0.1mg/dL (0.0-0.2) Aspartate Amino Transf (AST/SGOT) 11U/L (15-37) Alanine Aminotransferase (ALT/SGPT) 21U/L (16-63) Alkaline Phosphatase 117U/L (46-116) Troponin I Quantitative < 0.017ng/mL (0.000-0.055) < 0.017ng/mL (0.000-0.055) HE-Yhb-N-Type Natriuretic Peptide 32pg/mL (0-449) Total Protein 7.7g/dL (6.4-8.2) Albumin 3.8g/dL (3.4-5.0) Lipase 87U/L (73-393) Glucose (Fingerstick) 183mg/dL (70-99) Urine Collection Type Unknown Urine Color Yellow Urine Clarity Clear Urine pH 7.0 Urine Specific [place] 1.025 Urine Protein Negativemg/dL (NEG-TRACE) Urine Glucose (UA) Negativemg/dL (NEG) Urine Ketones (Stick) Tracemg/dL (NEG) Urine Blood Negative (NEG) Urine Nitrite Negative (NEG) Urine Bilirubin Negative (NEG) Urine Urobilinogen Dipstick 1.0mg/dL (0.2 mg/dL) Urine Leukocyte Esterase Negative (NEG) Urine RBC Rare/HPF (0-2) Urine WBC Occ/HPF (0-4) Urine Squamous Epithelial Cells None/LPF Urine Bacteria Few/HPF (0-FEW) Urine Mucus Slight/LPF Test 10/01/16 07:34 10/01/16 09:35 10/01/16 11:32 Glucose (Fingerstick) 190mg/dL (70-99) 208mg/dL (70-99) Troponin I Quantitative < 0.017ng/mL (0.000-0.055) Objective Assessment Fever Leukocytosis Acute Encephalopathy Acute Cholecystitis DM Plan Plan of Care Recommended zosyn to Dr. Boston Blood cults times 2 F/u labs and cults D/w Dr. Boston Thank you # [phone] RHONDA DA SILVA MD Oct 01, 2016 15:52
[2016-10-01] MEDS ORDERED: PROCHLORPERAZINE 10 MG/2 ML VIAL. IV PRN (16:00)
[2016-10-01] MEDS ORDERED: MORPHINE SULFATE 4 MG/ML DISP.SYRIN. IV PRN (16:00)
[2016-10-01] MEDS ORDERED: DIPHENHYDRAMINE 50 MG/ML VIAL IV PRN (16:00)
[2016-10-01] MEDS ORDERED: FENTANYL PF 100 MCG/2 ML VIAL. IV PRN ×3 (16:00)
[2016-10-01] MEDS ORDERED: MIDAZOLAM HCL 2 MG/2 ML VIAL. IV PRN ×2 (16:00)
[2016-10-01] MEDS ORDERED: LIDOCAINE 1% 1 ML SYRINGE. ID PRN (16:00)
[2016-10-01] MEDS ORDERED: HYDROMORPHONE 2 MG/ML VIAL. IV PRN (16:00)
[2016-10-01] MEDS ORDERED: SURGICEL HEMOSTAT 4X8 EACH. ONE (16:09)
[2016-10-01] MEDS ORDERED: IOHEXOL 300 MG/ML 50 ML VIAL. ONE (16:10)
[2016-10-01] MEDS ORDERED: GLUCAGON,HUMAN RECOMBINANT 1 MG/ML VIAL. ONE (16:10)
[2016-10-01] MEDS ORDERED: BUPIVACAINE-EPI 0.5%-1:200000 50 ML VIAL. ONE (16:10)
[2016-10-01] MEDS ORDERED: ACETAMINOPHEN INTRAVENOUS 100 ML IV PRN (17:30)
[2016-10-01] MEDS ORDERED: ROCURONIUM 50 MG/5 ML VIAL. ONE (17:54)
[2016-10-01] MEDS ORDERED: FENTANYL PF 100 MCG/2 ML VIAL. ONE ×2 (17:54→19:35)
[2016-10-01] MEDS ORDERED: LIDOCAINE 2% 100 MG/5 ML DISP.SYRIN. ONE (17:54)
[2016-10-01] MEDS ORDERED: PROPOFOL 20 ML IV ONE (17:58)
[2016-10-01] MEDS ORDERED: DESFLURANE 31 TO 60 MINUTES IH ONE (18:20)
[2016-10-01] MEDS ORDERED: DEXAMETHASONE SOD PHOS 20 MG/5 ML VIAL. ONE (18:20)
[2016-10-01] MEDS ORDERED: ESMOLOL 100 MG/10 ML VIAL. IV ONE (18:55)
--- NOTE | 2016-10-01 19:51 | PDOC ---
BRIEF OPERATIVE NOTE Date: Oct 01, 2016 Pre-Op Diagnosis acute cholecystitis Post-Op Diagnosis gangrenous cholecystitis Procedure Performed l/s cholecystectomy Surgeon Darvin DENNISON Anesthesia Type: General Blood Loss 100cc IV Fluid 1600cc Urine Output 100cc Specimens Obtained GB Findings gangrenous gall bladder Complications none TOBI CHAWLA MD Oct 01, 2016 19:51
[2016-10-01] MEDS ORDERED: INSULIN DETEMIR 300 UNITS/3 ML INSULN.PEN. SQ SCH (21:00)
[2016-10-02] VITALS (18 sets, daily range): BP systolic 79–136; BP diastolic 44–83
[2016-10-02] MEDS: PIPERACILLIN/TAZOBACTAM 3.375 GM in IV NORMAL SALINE 50ML 50 ML IV SCH ×5 (00:23→23:49)
[2016-10-02] MEDS: IV NORMAL SALINE 1000ML BAG 1,000 ML IV SCH ×2 (00:23→17:59)
[2016-10-02] MEDS: HYDROCODONE/APAP 5/325MG TABLET. PO PRN ×2 (04:24→21:15)
[2016-10-02] MEDS: LEVOTHYROXINE 50 MCG TABLET PO SCH (07:00)
[2016-10-02 07:02] LABS: BASO % 0 % (0-3); EOS % 0 % (0-3); HEMATOCRIT 36.9 % (39.0-53.0); HEMOGLOBIN 11.9 g/dL (13.0-17.5); LYMPH # 0.9 x10^3/uL (1.0-4.8); LYMPH % 6 % (24-48); MEAN CORPUSCULAR HEMOGLOBIN 30 pg (25-35); MEAN CORPUSCULAR HGB CONC 32 g/dL (31-37); MEAN CORPUSCULAR VOLUME 91 fL (79-100); MONO % 6 % (0-9); NEUT % 89 % (31-73); PLATELET COUNT 177 x10^3/uL (140-400); RED BLOOD COUNT 4.04 x10^6/uL (4.30-5.70); RED CELL DISTRIBUTION WIDTH 14.6 % (11.5-14.5); WHITE BLOOD COUNT 16.7 x10^3/uL (4.0-11.0)
[2016-10-02] MEDS: PANTOPRAZOLE 40 MG TABLET. PO SCH (07:30)
[2016-10-02 07:31] LABS: CALCIUM 8.1 mg/dL (8.5-10.1); CREATININE 0.9 mg/dL (0.7-1.3); GFR 80.6; POTASSIUM 3.9 mmol/L (3.5-5.1)
--- NOTE | 2016-10-02 07:56 | PDOC ---
Infectious Disease Note Subjective Subjective c/o pain at drain site, otherwise feeling ok No BM or flatus Tolerated a few cady crackers earlier, but not really hungry No fever since yesterday ROS ROS GEN: Denies chills, sweats HEENT: Denies sore throat CV: Denies chest pain RESP: Denies shortness of air, cough GI: Denies n/v Vital Sign Vital Signs Vital Signs Date Time Temp Pulse Resp B/P Pulse Ox O2 Delivery O2 Flow Rate FiO2 10/02/16 06:24 10 93 Nasal Cannula 3.0 10/02/16 06:00 97 101/60 10/02/16 04:00 97.3 97.3 Physical Exam PHYSICAL EXAM GENERAL: Alert, NAD, in chair HEENT: PERRL, Dry bloody secretions oral pharynx NECK: Supple LUNGS: Clear HEART: S1S2 ABD: Distended, hypoactive BS, soft, nontender to light palpation. ABBY intact- sanguinous drainage : [place] EXT: No edema, no cyanosis LEAD RECREATION ASSISTANT: Alert, oriented x 3, no focal neurologic deficit SKIN: No rash IV: ok Labs Lab Laboratory Tests Test 10/01/16 09:35 10/01/16 11:32 10/01/16 17:09 10/01/16 20:20 Troponin I Quantitative < 0.017ng/mL (0.000-0.055) Glucose (Fingerstick) 208mg/dL (70-99) 215mg/dL (70-99) 233mg/dL (70-99) Test 10/01/16 21:43 10/02/16 04:56 10/02/16 06:38 Glucose (Fingerstick) 246mg/dL (70-99) 274mg/dL (70-99) Sodium Level 140mmol/L (136-145) Potassium Level 3.9mmol/L (3.5-5.1) Chloride Level 106mmol/L (98-107) Carbon Dioxide Level 22mmol/L (21-32) Anion Gap 12 (6-14) Blood Urea Nitrogen 16mg/dL (8-26) Creatinine 0.9mg/dL (0.7-1.3) Estimated GFR (Cockcroft-Gault) 80.6 Glucose Level 313mg/dL (70-99) Calcium Level 8.1mg/dL (8.5-10.1) Objective Assessment Fever Leukocytosis - + post op -Steroids 10/01 Acute Encephalopathy- improved Acute Cholecystitis- gangrenous, s/p cholecystomy, 10/01 Clostridium DM Plan Plan of Care Zosyn F/u today's labs BC pending Attending Co-Sign Attending Co-Sign The patient was seen and interviewed as well as examined at the bedside. The chart was reviewed. The case was discussed. Agree with the plan of care. RADHA PATEL APRN Oct 02, 2016 07:56 RHONDA DA SILVA MD Oct 02, 2016 12:09
[2016-10-02] MEDS: METFORMIN 1,000 MG TABLET PO SCH (08:00)
[2016-10-02] MEDS ORDERED: ONDANSETRON PF 4 MG/2 ML VIAL. IV PRN (09:30)
--- NOTE | 2016-10-02 09:52 | PDOC ---
PROGRESS NOTES Chief Complaint Chief Complaint 1. s.p lap ofe for acute cholecystitis POD # 1 2. 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 Fevers resolved 4. SIRS no sepsis 5. Geriatric 6. 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, high BS History of Present Illness History of Present Illness Looking good, up in chair Tolerable post op; pain NO fevers here in ICU WBC 16 from 12 on IV zosyn per ID BS high - on levemir 10 here HOme regimen is 21 qhs and 8 TID with meals- pt not eating yet ROS; no CP, SOA, diarrhea, fevers PLAN: Diet per GS MOntior leukocytosis- CBC iwona Follow ID recs Inc levemir to 15 qhs Keep SSI - home regimen is 21 qhs and 9 TUD - but pt not eating much here yet Ok to t/o ICU when ok with GS dw [employer]/GARDENER Vitals Vitals Vital Signs Date Time Temp Pulse Resp B/P Pulse Ox O2 Delivery O2 Flow Rate FiO2 10/02/16 06:24 10 93 Nasal Cannula 3.0 10/02/16 06:00 97 101/60 10/02/16 04:00 97.3 97.3 Physical Exam General: Alert, No acute distress, Other (confused, alert to self) Heart: Regular rate, Normal S1, Normal S2, Other (S3. Blowing 2/6 systolic murmur over apex ) Abdomen: Soft, Other (tender epigastric) Extremities: No clubbing, No cyanosis, No edema Labs LABS Laboratory Tests Test 10/01/16 11:32 10/01/16 17:09 10/01/16 20:20 10/01/16 21:43 Glucose (Fingerstick) 208mg/dL (70-99) 215mg/dL (70-99) 233mg/dL (70-99) 246mg/dL (70-99) Test 10/02/16 04:56 10/02/16 06:38 10/02/16 08:43 Glucose (Fingerstick) 274mg/dL (70-99) 262mg/dL (70-99) White Blood Count 16.7x10^3/uL (4.0-11.0) Red Blood Count 4.04x10^6/uL (4.30-5.70) Hemoglobin 11.9g/dL (13.0-17.5) Hematocrit 36.9% (39.0-53.0) Mean Corpuscular Volume 91fL (79-100) Mean Corpuscular Hemoglobin 30pg (25-35) Mean Corpuscular Hemoglobin Concent 32g/dL (31-37) Red Cell Distribution Width 14.6% (11.5-14.5) Platelet Count 177x10^3/uL (140-400) Neutrophils (%) (Auto) 89% (31-73) Lymphocytes (%) (Auto) 6% (24-48) Monocytes (%) (Auto) 6% (0-9) Eosinophils (%) (Auto) 0% (0-3) Basophils (%) (Auto) 0% (0-3) Neutrophils # (Auto) 14.8x10^3uL (1.8-7.7) Lymphocytes # (Auto) 0.9x10^3/uL (1.0-4.8) Monocytes # (Auto) 0.9x10^3/uL (0.0-1.1) Eosinophils # (Auto) 0.0x10^3/uL (0.0-0.7) Basophils # (Auto) 0.0x10^3/uL (0.0-0.2) Sodium Level 140mmol/L (136-145) Potassium Level 3.9mmol/L (3.5-5.1) Chloride Level 106mmol/L (98-107) Carbon Dioxide Level 22mmol/L (21-32) Anion Gap 12 (6-14) Blood Urea Nitrogen 16mg/dL (8-26) Creatinine 0.9mg/dL (0.7-1.3) Estimated GFR (Cockcroft-Gault) 80.6 Glucose Level 313mg/dL (70-99) Calcium Level 8.1mg/dL (8.5-10.1) Assessment and Plan Assessmemt and Plan Problems Medical Problems: (1) Chest pain Status: Acute (2) SOB (shortness of breath) Status: Acute Problems: Comment Review of Relevant I have reviewed the following items olimpia (where applicable) has been applied. Labs Laboratory Tests Test 09/30/16 20:25 09/30/16 23:01 10/01/16 05:35 10/01/16 07:00 White Blood Count 12.0x10^3/uL (4.0-11.0) Red Blood Count 4.56x10^6/uL (4.30-5.70) Hemoglobin 13.6g/dL (13.0-17.5) Hematocrit 41.2% (39.0-53.0) Mean Corpuscular Volume 91fL (79-100) Mean Corpuscular Hemoglobin 30pg (25-35) Mean Corpuscular Hemoglobin Concent 33g/dL (31-37) Red Cell Distribution Width 14.5% (11.5-14.5) Platelet Count 226x10^3/uL (140-400) Neutrophils (%) (Auto) 70% (31-73) Lymphocytes (%) (Auto) 21% (24-48) Monocytes (%) (Auto) 8% (0-9) Eosinophils (%) (Auto) 1% (0-3) Basophils (%) (Auto) 0% (0-3) Neutrophils # (Auto) 8.4x10^3uL (1.8-7.7) Lymphocytes # (Auto) 2.5x10^3/uL (1.0-4.8) Monocytes # (Auto) 1.0x10^3/uL (0.0-1.1) Eosinophils # (Auto) 0.1x10^3/uL (0.0-0.7) Basophils # (Auto) 0.0x10^3/uL (0.0-0.2) Sodium Level 139mmol/L (136-145) Potassium Level 3.6mmol/L (3.5-5.1) Chloride Level 102mmol/L (98-107) Carbon Dioxide Level 25mmol/L (21-32) Anion Gap 12 (6-14) Blood Urea Nitrogen 20mg/dL (8-26) Creatinine 0.9mg/dL (0.7-1.3) Estimated GFR (Cockcroft-Gault) 80.6 Glucose Level 179mg/dL (70-99) Calcium Level 9.1mg/dL (8.5-10.1) Total Bilirubin 0.3mg/dL (0.2-1.0) Direct Bilirubin 0.1mg/dL (0.0-0.2) Aspartate Amino Transf (AST/SGOT) 11U/L (15-37) Alanine Aminotransferase (ALT/SGPT) 21U/L (16-63) Alkaline Phosphatase 117U/L (46-116) Troponin I Quantitative < 0.017ng/mL (0.000-0.055) < 0.017ng/mL (0.000-0.055) TT-Qyw-D-Type Natriuretic Peptide 32pg/mL (0-449) Total Protein 7.7g/dL (6.4-8.2) Albumin 3.8g/dL (3.4-5.0) Lipase 87U/L (73-393) Glucose (Fingerstick) 183mg/dL (70-99) Urine Collection Type Unknown Urine Color Yellow Urine Clarity Clear Urine pH 7.0 Urine Specific [place] 1.025 Urine Protein Negativemg/dL (NEG-TRACE) Urine Glucose (UA) Negativemg/dL (NEG) Urine Ketones (Stick) Tracemg/dL (NEG) Urine Blood Negative (NEG) Urine Nitrite Negative (NEG) Urine Bilirubin Negative (NEG) Urine Urobilinogen Dipstick 1.0mg/dL (0.2 mg/dL) Urine Leukocyte Esterase Negative (NEG) Urine RBC Rare/HPF (0-2) Urine WBC Occ/HPF (0-4) Urine Squamous Epithelial Cells None/LPF Urine Bacteria Few/HPF (0-FEW) Urine Mucus Slight/LPF Test 10/01/16 07:34 10/01/16 09:35 10/01/16 11:32 10/01/16 17:09 Glucose (Fingerstick) 190mg/dL (70-99) 208mg/dL (70-99) 215mg/dL (70-99) Troponin I Quantitative < 0.017ng/mL (0.000-0.055) Test 10/01/16 20:20 10/01/16 21:43 10/02/16 04:56 10/02/16 06:38 Glucose (Fingerstick) 233mg/dL (70-99) 246mg/dL (70-99) 274mg/dL (70-99) White Blood Count 16.7x10^3/uL (4.0-11.0) Red Blood Count 4.04x10^6/uL (4.30-5.70) Hemoglobin 11.9g/dL (13.0-17.5) Hematocrit 36.9% (39.0-53.0) Mean Corpuscular Volume 91fL (79-100) Mean Corpuscular Hemoglobin 30pg (25-35) Mean Corpuscular Hemoglobin Concent 32g/dL (31-37) Red Cell Distribution Width 14.6% (11.5-14.5) Platelet Count 177x10^3/uL (140-400) Neutrophils (%) (Auto) 89% (31-73) Lymphocytes (%) (Auto) 6% (24-48) Monocytes (%) (Auto) 6% (0-9) Eosinophils (%) (Auto) 0% (0-3) Basophils (%) (Auto) 0% (0-3) Neutrophils # (Auto) 14.8x10^3uL (1.8-7.7) Lymphocytes # (Auto) 0.9x10^3/uL (1.0-4.8) Monocytes # (Auto) 0.9x10^3/uL (0.0-1.1) Eosinophils # (Auto) 0.0x10^3/uL (0.0-0.7) Basophils # (Auto) 0.0x10^3/uL (0.0-0.2) Sodium Level 140mmol/L (136-145) Potassium Level 3.9mmol/L (3.5-5.1) Chloride Level 106mmol/L (98-107) Carbon Dioxide Level 22mmol/L (21-32) Anion Gap 12 (6-14) Blood Urea Nitrogen 16mg/dL (8-26) Creatinine 0.9mg/dL (0.7-1.3) Estimated GFR (Cockcroft-Gault) 80.6 Glucose Level 313mg/dL (70-99) Calcium Level 8.1mg/dL (8.5-10.1) Test 10/02/16 08:43 Glucose (Fingerstick) 262mg/dL (70-99) Laboratory Tests Test 10/01/16 11:32 10/01/16 17:09 10/01/16 20:20 10/01/16 21:43 Glucose (Fingerstick) 208mg/dL (70-99) 215mg/dL (70-99) 233mg/dL (70-99) 246mg/dL (70-99) Test 10/02/16 04:56 10/02/16 06:38 10/02/16 08:43 Glucose (Fingerstick) 274mg/dL (70-99) 262mg/dL (70-99) White Blood Count 16.7x10^3/uL (4.0-11.0) Red Blood Count 4.04x10^6/uL (4.30-5.70) Hemoglobin 11.9g/dL (13.0-17.5) Hematocrit 36.9% (39.0-53.0) Mean Corpuscular Volume 91fL (79-100) Mean Corpuscular Hemoglobin 30pg (25-35) Mean Corpuscular Hemoglobin Concent 32g/dL (31-37) Red Cell Distribution Width 14.6% (11.5-14.5) Platelet Count 177x10^3/uL (140-400) Neutrophils (%) (Auto) 89% (31-73) Lymphocytes (%) (Auto) 6% (24-48) Monocytes (%) (Auto) 6% (0-9) Eosinophils (%) (Auto) 0% (0-3) Basophils (%) (Auto) 0% (0-3) Neutrophils # (Auto) 14.8x10^3uL (1.8-7.7) Lymphocytes # (Auto) 0.9x10^3/uL (1.0-4.8) Monocytes # (Auto) 0.9x10^3/uL (0.0-1.1) Eosinophils # (Auto) 0.0x10^3/uL (0.0-0.7) Basophils # (Auto) 0.0x10^3/uL (0.0-0.2) Sodium Level 140mmol/L (136-145) Potassium Level 3.9mmol/L (3.5-5.1) Chloride Level 106mmol/L (98-107) Carbon Dioxide Level 22mmol/L (21-32) Anion Gap 12 (6-14) Blood Urea Nitrogen 16mg/dL (8-26) Creatinine 0.9mg/dL (0.7-1.3) Estimated GFR (Cockcroft-Gault) 80.6 Glucose Level 313mg/dL (70-99) Calcium Level 8.1mg/dL (8.5-10.1) Medications Current Medications Aspirin (Children'S Aspirin) 324 mg 1X ONCE PO Last administered on at 20:29; Start 09/30/16 at 20:45; Stop 09/30/16 at 20:46; Status DC Nitroglycerin (Nitrostat) 0.4 mg PRN Q5MIN PRN SL CP RATING > 1/10 Last administered on 09/30/16at 20:33; Start 09/30/16 at 20:30; Stop 09/30/16 at 23 :59; Status DC Morphine Sulfate 4 mg 1X ONCE IV Last administered on 09/30/16at 21:20; Start 09/30/16 at 21:15; Stop 09/30/16 at 21:16; Status DC Ondansetron HCl (Zofran) 4 mg PRN Q8HRS PRN IV NAUSEA/VOMITING; Start at 21:45; Stop 10/01/16 at 14:11; Status DC Morphine Sulfate 4 mg PRN Q2HR PRN IV PAIN Last administered on 10/01/16at 15: 05; Start 09/30/16 at 21:45; Stop 10/01/16 at 21:44; Status DC Acetaminophen (Tylenol) 650 mg PRN Q4HRS PRN PO FEVER Last administered on at 02:53; Start 09/30/16 at 21:45; Stop 10/01/16 at 14:11; Status DC Nitroglycerin (Nitrostat) 0.4 mg PRN Q5MIN PRN SL CHEST PAIN; Start 09/30/16 at 21:45; Stop 10/01/16 at 21:44; Status DC Insulin Aspart (Novolog) 0-7 UNITS TIDWMEALS SQ Last administered on at 08:57; Start 10/01/16 at 08:00; Stop 10/01/16 at 09:35; Status DC Dextrose 12.5 gm PRN Q15MIN PRN IV SEE COMMENTS; Start 09/30/16 at 21:45 Acetaminophen (Tylenol) 325 mg PRN Q6HRS PRN PO MILD PAIN / TEMP; Start at 09:30 Acetaminophen/ Hydrocodone Bitart (Lortab 5/325) 1 tab PRN Q6HRS PRN PO MODERATE TO SEVERE PAIN Last administered on 10/02/16at 04:24; Start 10/01/16 at 09:30 Hydralazine HCl (Apresoline) 10 mg PRN Q4HRS PRN IVP ELEVATED BP, SEE COMMENTS ; Start 10/01/16 at 09:30 Ondansetron HCl (Zofran) 4 mg PRN Q8HRS PRN IV NAUSEA/VOMITING 1ST CHOICE; Start 10/01/16 at 09:30; Stop 10/02/16 at 07:58; Status DC Albuterol Sulfate (Ventolin Neb Soln) 2.5 mg PRN Q4HRS PRN NEB SHORTNESS OF BREATH; Start 10/01/16 at 09:30 Levothyroxine Sodium (Synthroid) 50 mcg DAILY07 PO ; Start 10/01/16 at 10:00; Stop 10/02/16 at 09:47; Status DC Metformin HCl (Glucophage) 1,000 mg DAILYWBKFT PO ; Start 10/01/16 at 10:00 Insulin Detemir (Levemir) 10 units QHS SQ Last administered on 10/01/16at 21:57 ; Start 10/01/16 at 21:00; Stop 10/02/16 at 07:57; Status DC Insulin Aspart (Novolog) 0-9 UNITS TIDWMEALS SQ ; Start 10/01/16 at 12:00 Dextrose 12.5 gm 12.5 gm PRN Q15MIN PRN IV SEE COMMENTS; Start 10/01/16 at 09: 30; Status UNV Sodium Chloride (Iv Sodium Chloride 0.9% 1000ml Bag) 1,000 ml @ 75 mls/hr 1X ONCE IV ; Start 10/01/16 at 11:45; Stop 10/01/16 at 14:11; Status DC Pantoprazole Sodium (Protonix) 40 mg DAILYAC PO ; Start 10/01/16 at 12:00; Stop 10/02/16 at 09:47; Status DC Iohexol 75 ml 75 ml 1X ONCE IV Last administered on 10/01/16at 12:21; Start 10/01/16 at 12:15; Stop 10/01/16 at 12:16; Status DC Sodium Chloride 1,000 ml @ 75 mls/hr [id number] IV Last administered on at 00:23; Start 10/01/16 at 14:15 Piperacillin Sod/ Tazobactam Sod/ Sodium Chloride (Zosyn/Iv Sodium Chloride 0.9 % 50ml) 50 ml @ 100 mls/hr Q6HRS IV Last administered on 10/02/16at 06:19; Start 10/01/16 at 18:00 Fentanyl Citrate (Fentanyl 2ml Vial) 50 mcg PRN Q5MIN PRN IV Acute Pain; Start 10/01/16 at 16:00; Stop 10/01/16 at 23:00; Status DC Morphine Sulfate 4 mg PRN Q10MIN PRN IV Moderate Pain; Start 10/01/16 at 16:00 ; Stop 10/01/16 at 23:00; Status DC Hydromorphone HCl (Dilaudid) 0.4 mg PRN Q10MIN PRN IV Moderate to severe pain; Start 10/01/16 at 16:00; Stop 10/01/16 at 23:00; Status DC Prochlorperazine Edisylate (Compazine) 5 mg PRN Q6HRS PRN IV Nausea/Vomiting, 1st Choice; Start 10/01/16 at 16:00; Stop 10/01/16 at 23:00; Status DC Diphenhydramine HCl (Benadryl) 12.5 mg PRN Q2HR PRN IV ITCHING; Start at 16:00; Stop 10/01/16 at 23:00; Status DC Midazolam HCl (Versed) 2 mg PRN 1X PRN IV PRIOR TO PROCEDURE; Start 10/01/16 at 16:00; Stop 10/01/16 at 23:00; Status DC Midazolam HCl (Versed) 1 mg PRN 1X PRN IV PRIOR TO PROCEDURE; Start 10/01/16 at 16:00; Stop 10/01/16 at 23:00; Status DC Fentanyl Citrate (Fentanyl 2ml Vial) 25 mcg PRN Q5MIN PRN IV X 2 DOSES FOR PAIN ; Start 10/01/16 at 16:00; Stop 10/01/16 at 23:00; Status DC Fentanyl Citrate 50 mcg 50 mcg PRN Q5MIN PRN IV X 2 DOSES FOR PAIN; Start at 16:00; Stop 10/01/16 at 23:00; Status DC Lactated Ringer's (Iv Lactated Ringers) 1,000 ml @ 125 mls/hr Q8H IV ; Start 10/01/16 at 15:49; Stop 10/01/16 at 20:43; Status DC Lidocaine HCl 2 ml 1X PRN PRN ID IV START; Start 10/01/16 at 16:00; Stop at 23:00; Status DC Cellulose 1 each STK-MED ONCE .ROUTE Last administered on 10/01/16at 19:19; Start 10/01/16 at 16:09; Stop 10/01/16 at 16:10; Status DC Bupivacaine HCl/ Epinephrine Bitart (Marcaine-Epi 0.5%-[id number]) 50 ml STK-MED ONCE .ROUTE Last administered on 10/01/16at 18:04; Start 10/01/16 at 16:10; Stop 10/01/16 at 16:11; Status DC Glucagon (Glucagen) 1 mg STK-MED ONCE .ROUTE ; Start 10/01/16 at 16:10; Stop 10/01/16 at 16:11; Status DC Iohexol 50 ml 50 ml STK-MED ONCE .ROUTE Last administered on 10/01/16at 18:04; Start 10/01/16 at 16:10; Stop 10/01/16 at 16:11; Status DC Acetaminophen (Ofirmev) 100 ml @ 400 mls/hr 1X PACU PRN IV FEVER Last administered on 10/01/16at 17:37; Start 10/01/16 at 17:30; Stop 10/01/16 at 23 :00; Status DC Rocuronium [place] (Zemuron) 50 mg STK-MED ONCE .ROUTE ; Start 10/01/16 at 17: 54; Stop 10/01/16 at 17:55; Status DC Lidocaine HCl 100 mg STK-MED ONCE .ROUTE ; Start 10/01/16 at 17:54; Stop 10/01 at 17:55; Status DC Fentanyl Citrate 100 mcg 100 mcg STK-MED ONCE .ROUTE ; Start 10/01/16 at 17:54 ; Stop 10/01/16 at 17:55; Status DC Propofol (Diprivan) 20 ml @ As Directed STK-MED ONCE IV ; Start 10/01/16 at 17: 58; Stop 10/01/16 at 17:59; Status DC Dexamethasone Sodium Phosphate (Decadron) 20 mg STK-MED ONCE .ROUTE ; Start at 18:20; Stop 10/01/16 at 18:21; Status DC Desflurane (Suprane) 30 ml STK-MED ONCE IH ; Start 10/01/16 at 18:20; Stop at 18:21; Status DC Esmolol HCl (Brevibloc) 100 mg STK-MED ONCE IV ; Start 10/01/16 at 18:55; Stop 10/01/16 at 18:56; Status DC Fentanyl Citrate (Fentanyl 2ml Vial) 100 mcg STK-MED ONCE .ROUTE ; Start at 19:35; Stop 10/01/16 at 19:36; Status DC Insulin Detemir (Levemir) 15 units QHS SQ ; Start 10/02/16 at 21:00 Ondansetron HCl (Zofran) 4 mg PRN Q6HRS PRN IV NAUSEA/VOMITING 1ST CHOICE; Start 10/02/16 at 09:30 Pantoprazole Sodium 40 mg 40 mg DAILYAC IVP ; Start 10/02/16 at 09:45; Status UNV Levothyroxine Sodium/Sodium Chloride (Synthroid/Iv Sodium Chloride 0.9% 50ml) 5 ml @ 100 mls/hr DAILY IVP ; Start 10/02/16 at 09:45; Status UNV Active Scripts Active Reported Metformin Hcl 1,000 Mg Tablet Synthroid (Levothyroxine Sodium) 50 Mcg Tablet Lantus Solostar (Insulin Glargine,Hum.rec.anlog) 100 Unit/1 Ml Insuln.pen Novolog Flexpen (Insulin Aspart) 100 Unit/1 Ml Insuln.pen Vitals/I & O Vital Sign - Last 24 Hours 10/01/16 10/01/16 10/01/16 10/01/16 11:05 15:05 15:15 15:35 Temp 98.3 98.7 98.3 98.7 Pulse 110 107 Resp 20 16 18 B/P 124/73 130/71 Pulse Ox 95 96 96 O2 Delivery Room Air Room Air Room Air Room Air 10/01/16 10/01/16 10/01/16 10/01/16 17:10 19:52 20:07 20:10 Temp 102.9 99.8 102.9 99.8 Pulse 121 84 93 Resp 18 16 B/P 155/77 105/59 108/60 Pulse Ox 91 95 94 O2 Delivery Room Air Simple Mask Simple Mask Mask O2 Flow Rate 10 10 10 10/01/16 10/01/16 10/01/16 10/01/16 20:22 20:37 20:55 21:00 Temp 97.6 99.0 97.6 99.0 Pulse 95 94 92 Resp 24 13 B/P 119/67 119/66 121/69 Pulse Ox 94 94 96 O2 Delivery Nasal Cannula Nasal Cannula Nasal Cannula Nasal Cannula O2 Flow Rate 4 4 4.0 4.0 10/01/16 10/01/16 10/02/16 10/02/16 22:00 23:00 00:00 00:00 Temp 98.2 98.2 Pulse 94 88 90 Resp 15 17 B/P 114/63 112/70 108/54 Pulse Ox 95 96 95 O2 Delivery Nasal Cannula Nasal Cannula Nasal Cannula Nasal Cannula O2 Flow Rate 4.0 4.0 3.0 3.0 10/02/16 10/02/16 10/02/16 10/02/16 01:00 02:00 03:00 04:00 Pulse 90 91 90 Resp 14 15 B/P 79/53 84/59 107/59 Pulse Ox 95 96 96 O2 Delivery Nasal Cannula Nasal Cannula Nasal Cannula Nasal Cannula O2 Flow Rate 3.0 3.0 3.0 3.0 10/02/16 10/02/16 10/02/16 10/02/16 04:00 04:24 05:00 06:00 Temp 97.3 97.3 Pulse 103 104 97 Resp 17 13 18 10 B/P 125/68 111/82 101/60 Pulse Ox 93 93 93 93 O2 Delivery Nasal Cannula Nasal Cannula Nasal Cannula Nasal Cannula O2 Flow Rate 3.0 3.0 3.0 3.0 10/02/16 06:24 Resp 10 Pulse Ox 93 O2 Delivery Nasal Cannula O2 Flow Rate 3.0 Intake and Output 10/01/16 10/01/16 10/02/16 15:00 23:00 07:00 Intake Total 30 ml 1705 ml 498 ml Output Total 710 ml 550 ml Balance 30 ml 995 ml -52 ml MANSI GUZMAN MD Oct 02, 2016 09:52
[2016-10-02] MEDS: INSULIN ASPART 300 UNITS/3 ML INSULN.PEN SQ SCH ×3 (09:53→17:57)
[2016-10-02] MEDS: PANTOPRAZOLE IV PUSH 40 MG VIAL. IVP SCH (10:04)
[2016-10-02] MEDS: MORPHINE SULFATE 2 MG/ML DISP.SYRIN. IV PRN (10:23)
[2016-10-02] MEDS: LEVOTHYROXINE SODIUM 25 MCG in IV NORMAL SALINE 50ML 5 ML IVP SCH (10:23)
[2016-10-02 10:30] LABS: PLT ESTIMATE ADEQUATE (ADEQUATE)
--- NOTE | 2016-10-02 12:28 | PDOC2 ---
NEUROLOGY CONSULT Date of Admission Date of Admission DATE: 10/02/16 TIME: 12:23 Reason for Consult Reason for Consult: Altered mental status Referring Physician Referring Physician: Dr. Sotomayor PCP: Dr. Macario Source Source: Chart review, Patient History of Present Illness History of Present Illness The patient is an 81-year-old right-handed male admitted with abdominal pain and found to have acute cholecystitis for which she underwent cholecystectomy early yesterday evening. He was confused yesterday but feels fine now. There is no history of stroke, seizure, head injury, or dementia. However, he had a brain MRI done as part of a hearing evaluation which showed "severe atrophy." Past Medical History Pulmonary: Other (sleep apnea which resolved after surgery) CENTRAL NERVOUS SYSTEM: Periperal neuropathy Musculoskeletal: Osteoarthritis Renal/: Benign prostatic enlarg. Endocrine: Diabetes, Hypothyroidism Past Surgical History Past Surgical History: Cholecystectomy, Cataract Removal, Hernia Repair (hiatal ), Total hip replacement (right), Other (for sleep apnea, lumbar) Family History Family History: CAD Social History Social History , nonsmoker, nondrinker Current Medications Current Medications Current Medications Aspirin (Children'S Aspirin) 324 mg 1X ONCE PO Last administered on at 20:29; Start 09/30/16 at 20:45; Stop 09/30/16 at 20:46; Status DC Nitroglycerin (Nitrostat) 0.4 mg PRN Q5MIN PRN SL CP RATING > 1/10 Last administered on 09/30/16at 20:33; Start 09/30/16 at 20:30; Stop 09/30/16 at 23 :59; Status DC Morphine Sulfate 4 mg 1X ONCE IV Last administered on 09/30/16at 21:20; Start 09/30/16 at 21:15; Stop 09/30/16 at 21:16; Status DC Ondansetron HCl (Zofran) 4 mg PRN Q8HRS PRN IV NAUSEA/VOMITING; Start at 21:45; Stop 10/01/16 at 14:11; Status DC Morphine Sulfate 4 mg PRN Q2HR PRN IV PAIN Last administered on 10/01/16at 15: 05; Start 09/30/16 at 21:45; Stop 10/01/16 at 21:44; Status DC Acetaminophen (Tylenol) 650 mg PRN Q4HRS PRN PO FEVER Last administered on at 02:53; Start 09/30/16 at 21:45; Stop 10/01/16 at 14:11; Status DC Nitroglycerin (Nitrostat) 0.4 mg PRN Q5MIN PRN SL CHEST PAIN; Start 09/30/16 at 21:45; Stop 10/01/16 at 21:44; Status DC Insulin Aspart (Novolog) 0-7 UNITS TIDWMEALS SQ Last administered on at 08:57; Start 10/01/16 at 08:00; Stop 10/01/16 at 09:35; Status DC Dextrose 12.5 gm PRN Q15MIN PRN IV SEE COMMENTS; Start 09/30/16 at 21:45 Acetaminophen (Tylenol) 325 mg PRN Q6HRS PRN PO MILD PAIN / TEMP; Start at 09:30 Acetaminophen/ Hydrocodone Bitart (Lortab 5/325) 1 tab PRN Q6HRS PRN PO MODERATE TO SEVERE PAIN Last administered on 10/02/16at 04:24; Start 10/01/16 at 09:30 Hydralazine HCl (Apresoline) 10 mg PRN Q4HRS PRN IVP ELEVATED BP, SEE COMMENTS ; Start 10/01/16 at 09:30 Ondansetron HCl (Zofran) 4 mg PRN Q8HRS PRN IV NAUSEA/VOMITING 1ST CHOICE; Start 10/01/16 at 09:30; Stop 10/02/16 at 07:58; Status DC Albuterol Sulfate (Ventolin Neb Soln) 2.5 mg PRN Q4HRS PRN NEB SHORTNESS OF BREATH; Start 10/01/16 at 09:30 Levothyroxine Sodium (Synthroid) 50 mcg DAILY07 PO ; Start 10/01/16 at 10:00; Stop 10/02/16 at 09:47; Status DC Metformin HCl (Glucophage) 1,000 mg DAILYWBKFT PO ; Start 10/01/16 at 10:00 Insulin Detemir (Levemir) 10 units QHS SQ Last administered on 10/01/16at 21:57 ; Start 10/01/16 at 21:00; Stop 10/02/16 at 07:57; Status DC Insulin Aspart (Novolog) 0-9 UNITS TIDWMEALS SQ Last administered on at 09:53; Start 10/01/16 at 12:00 Dextrose 12.5 gm 12.5 gm PRN Q15MIN PRN IV SEE COMMENTS; Start 10/01/16 at 09: 30; Status UNV Sodium Chloride (Iv Sodium Chloride 0.9% 1000ml Bag) 1,000 ml @ 75 mls/hr 1X ONCE IV ; Start 10/01/16 at 11:45; Stop 10/01/16 at 14:11; Status DC Pantoprazole Sodium (Protonix) 40 mg DAILYAC PO ; Start 10/01/16 at 12:00; Stop 10/02/16 at 09:47; Status DC Iohexol 75 ml 75 ml 1X ONCE IV Last administered on 10/01/16at 12:21; Start 10/01/16 at 12:15; Stop 10/01/16 at 12:16; Status DC Sodium Chloride 1,000 ml @ 75 mls/hr [id number] IV Last administered on at 00:23; Start 10/01/16 at 14:15 Piperacillin Sod/ Tazobactam Sod/ Sodium Chloride (Zosyn/Iv Sodium Chloride 0.9 % 50ml) 50 ml @ 100 mls/hr Q6HRS IV Last administered on 10/02/16at 06:19; Start 10/01/16 at 18:00 Fentanyl Citrate (Fentanyl 2ml Vial) 50 mcg PRN Q5MIN PRN IV Acute Pain; Start 10/01/16 at 16:00; Stop 10/01/16 at 23:00; Status DC Morphine Sulfate 4 mg PRN Q10MIN PRN IV Moderate Pain; Start 10/01/16 at 16:00 ; Stop 10/01/16 at 23:00; Status DC Hydromorphone HCl (Dilaudid) 0.4 mg PRN Q10MIN PRN IV Moderate to severe pain; Start 10/01/16 at 16:00; Stop 10/01/16 at 23:00; Status DC Prochlorperazine Edisylate (Compazine) 5 mg PRN Q6HRS PRN IV Nausea/Vomiting, 1st Choice; Start 10/01/16 at 16:00; Stop 10/01/16 at 23:00; Status DC Diphenhydramine HCl (Benadryl) 12.5 mg PRN Q2HR PRN IV ITCHING; Start at 16:00; Stop 10/01/16 at 23:00; Status DC Midazolam HCl (Versed) 2 mg PRN 1X PRN IV PRIOR TO PROCEDURE; Start 10/01/16 at 16:00; Stop 10/01/16 at 23:00; Status DC Midazolam HCl (Versed) 1 mg PRN 1X PRN IV PRIOR TO PROCEDURE; Start 10/01/16 at 16:00; Stop 10/01/16 at 23:00; Status DC Fentanyl Citrate (Fentanyl 2ml Vial) 25 mcg PRN Q5MIN PRN IV X 2 DOSES FOR PAIN ; Start 10/01/16 at 16:00; Stop 10/01/16 at 23:00; Status DC Fentanyl Citrate 50 mcg 50 mcg PRN Q5MIN PRN IV X 2 DOSES FOR PAIN; Start at 16:00; Stop 10/01/16 at 23:00; Status DC Lactated Ringer's (Iv Lactated Ringers) 1,000 ml @ 125 mls/hr Q8H IV ; Start 10/01/16 at 15:49; Stop 10/01/16 at 20:43; Status DC Lidocaine HCl 2 ml 1X PRN PRN ID IV START; Start 10/01/16 at 16:00; Stop at 23:00; Status DC Cellulose 1 each STK-MED ONCE .ROUTE Last administered on 10/01/16at 19:19; Start 10/01/16 at 16:09; Stop 10/01/16 at 16:10; Status DC Bupivacaine HCl/ Epinephrine Bitart (Marcaine-Epi 0.5%-1:740100) 50 ml STK-MED ONCE .ROUTE Last administered on 10/01/16at 18:04; Start 10/01/16 at 16:10; Stop 10/01/16 at 16:11; Status DC Glucagon (Glucagen) 1 mg STK-MED ONCE .ROUTE ; Start 10/01/16 at 16:10; Stop 10/01/16 at 16:11; Status DC Iohexol 50 ml 50 ml STK-MED ONCE .ROUTE Last administered on 10/01/16at 18:04; Start 10/01/16 at 16:10; Stop 10/01/16 at 16:11; Status DC Acetaminophen (Ofirmev) 100 ml @ 400 mls/hr 1X PACU PRN IV FEVER Last administered on 10/01/16at 17:37; Start 10/01/16 at 17:30; Stop 10/01/16 at 23 :00; Status DC Rocuronium [place] (Zemuron) 50 mg STK-MED ONCE .ROUTE ; Start 10/01/16 at 17: 54; Stop 10/01/16 at 17:55; Status DC Lidocaine HCl 100 mg STK-MED ONCE .ROUTE ; Start 10/01/16 at 17:54; Stop 10/01 at 17:55; Status DC Fentanyl Citrate 100 mcg 100 mcg STK-MED ONCE .ROUTE ; Start 10/01/16 at 17:54 ; Stop 10/01/16 at 17:55; Status DC Propofol (Diprivan) 20 ml @ As Directed STK-MED ONCE IV ; Start 10/01/16 at 17: 58; Stop 10/01/16 at 17:59; Status DC Dexamethasone Sodium Phosphate (Decadron) 20 mg STK-MED ONCE .ROUTE ; Start at 18:20; Stop 10/01/16 at 18:21; Status DC Desflurane (Suprane) 30 ml STK-MED ONCE IH ; Start 10/01/16 at 18:20; Stop at 18:21; Status DC Esmolol HCl (Brevibloc) 100 mg STK-MED ONCE IV ; Start 10/01/16 at 18:55; Stop 10/01/16 at 18:56; Status DC Fentanyl Citrate (Fentanyl 2ml Vial) 100 mcg STK-MED ONCE .ROUTE ; Start at 19:35; Stop 10/01/16 at 19:36; Status DC Insulin Detemir (Levemir) 15 units QHS SQ ; Start 10/02/16 at 21:00 Ondansetron HCl (Zofran) 4 mg PRN Q6HRS PRN IV NAUSEA/VOMITING 1ST CHOICE; Start 10/02/16 at 09:30 Pantoprazole Sodium 40 mg 40 mg DAILYAC IVP Last administered on 10/02/16at 10: 04; Start 10/02/16 at 09:45 Levothyroxine Sodium/Sodium Chloride (Synthroid/Iv Sodium Chloride 0.9% 50ml) 5 ml @ 100 mls/hr DAILY IVP Last administered on 10/02/16at 10:23; Start at 09:45 Morphine Sulfate 2 mg PRN Q2HR PRN IV PAIN Last administered on 10/02/16at 10: 23; Start 10/02/16 at 10:15 Active Scripts Active Reported Metformin Hcl 1,000 Mg Tablet Synthroid (Levothyroxine Sodium) 50 Mcg Tablet Lantus Solostar (Insulin Glargine,Hum.rec.anlog) 100 Unit/1 Ml Insuln.pen Novolog Flexpen (Insulin Aspart) 100 Unit/1 Ml Insuln.pen Allergies Allergies: Coded Allergies: meperidine (Verified Allergy, Unknown, 02/28/16) ROS Review of System Patient denies fevers, chills, weight loss, dyspnea, angina, abdominal pain, change in bowels, or dysuria. 14 point review of systems is negative. Physical Exam Physical Examination PHYSICAL EXAMINATION: Vital signs: see above. General appearance is normal and in no acute distress. HEENT: Normocephalic and nontraumatic. Eyes, nose, ears, and throat are unremarkable. Neck is supple. No lymphadenopathy. No bruits are heard over the carotid artery. No crepitus. NEUROLOGICAL EXAMINATION: Mental Status Examination: Alert. Oriented to time, place, and person. Answers questions and follows commends. Pupils are equal round and reactive to light and accommodation. Extraocular movements are intact. Visual field exam shows no defect on the direct confrontation. No motor or sensory deficits on the facial exam. Uvula in the midline and the soft palate elevated symmetrically. No deviation of the tongue to any direction. Gross hearing is normal. Shoulder shrug normal. Muscle tone is normal. Muscle strength is 5. Deep tendon reflexes are 1+ all around. Plantar reflex is with flexion response bilaterally. [id number] test performance is accurate. Alternative movements are accurate. Mild postural tremor. Gait not tested. Sensory exam shows stocking loss. No cerebellar signs are elicited Vitals VITALS Vital Signs Date Time Temp Pulse Resp B/P Pulse Ox O2 Delivery O2 Flow Rate FiO2 10/02/16 11:00 102 20 132/65 92 Nasal Cannula 4.0 10/02/16 07:00 98.1 98.1 Labs Labs Laboratory Tests Test 09/30/16 20:25 09/30/16 23:01 10/01/16 05:35 10/01/16 07:00 White Blood Count 12.0x10^3/uL (4.0-11.0) Red Blood Count 4.56x10^6/uL (4.30-5.70) Hemoglobin 13.6g/dL (13.0-17.5) Hematocrit 41.2% (39.0-53.0) Mean Corpuscular Volume 91fL (79-100) Mean Corpuscular Hemoglobin 30pg (25-35) Mean Corpuscular Hemoglobin Concent 33g/dL (31-37) Red Cell Distribution Width 14.5% (11.5-14.5) Platelet Count 226x10^3/uL (140-400) Neutrophils (%) (Auto) 70% (31-73) Lymphocytes (%) (Auto) 21% (24-48) Monocytes (%) (Auto) 8% (0-9) Eosinophils (%) (Auto) 1% (0-3) Basophils (%) (Auto) 0% (0-3) Neutrophils # (Auto) 8.4x10^3uL (1.8-7.7) Lymphocytes # (Auto) 2.5x10^3/uL (1.0-4.8) Monocytes # (Auto) 1.0x10^3/uL (0.0-1.1) Eosinophils # (Auto) 0.1x10^3/uL (0.0-0.7) Basophils # (Auto) 0.0x10^3/uL (0.0-0.2) Sodium Level 139mmol/L (136-145) Potassium Level 3.6mmol/L (3.5-5.1) Chloride Level 102mmol/L (98-107) Carbon Dioxide Level 25mmol/L (21-32) Anion Gap 12 (6-14) Blood Urea Nitrogen 20mg/dL (8-26) Creatinine 0.9mg/dL (0.7-1.3) Estimated GFR (Cockcroft-Gault) 80.6 Glucose Level 179mg/dL (70-99) Calcium Level 9.1mg/dL (8.5-10.1) Total Bilirubin 0.3mg/dL (0.2-1.0) Direct Bilirubin 0.1mg/dL (0.0-0.2) Aspartate Amino Transf (AST/SGOT) 11U/L (15-37) Alanine Aminotransferase (ALT/SGPT) 21U/L (16-63) Alkaline Phosphatase 117U/L (46-116) Troponin I Quantitative < 0.017ng/mL (0.000-0.055) < 0.017ng/mL (0.000-0.055) EJ-Fpo-M-Type Natriuretic Peptide 32pg/mL (0-449) Total Protein 7.7g/dL (6.4-8.2) Albumin 3.8g/dL (3.4-5.0) Lipase 87U/L (73-393) Glucose (Fingerstick) 183mg/dL (70-99) Urine Collection Type Unknown Urine Color Yellow Urine Clarity Clear Urine pH 7.0 Urine Specific [place] 1.025 Urine Protein Negativemg/dL (NEG-TRACE) Urine Glucose (UA) Negativemg/dL (NEG) Urine Ketones (Stick) Tracemg/dL (NEG) Urine Blood Negative (NEG) Urine Nitrite Negative (NEG) Urine Bilirubin Negative (NEG) Urine Urobilinogen Dipstick 1.0mg/dL (0.2 mg/dL) Urine Leukocyte Esterase Negative (NEG) Urine RBC Rare/HPF (0-2) Urine WBC Occ/HPF (0-4) Urine Squamous Epithelial Cells None/LPF Urine Bacteria Few/HPF (0-FEW) Urine Mucus Slight/LPF Test 10/01/16 07:34 10/01/16 09:35 10/01/16 11:32 10/01/16 17:09 Glucose (Fingerstick) 190mg/dL (70-99) 208mg/dL (70-99) 215mg/dL (70-99) Troponin I Quantitative < 0.017ng/mL (0.000-0.055) Test 10/01/16 20:20 10/01/16 21:43 10/02/16 04:56 10/02/16 06:38 Glucose (Fingerstick) 233mg/dL (70-99) 246mg/dL (70-99) 274mg/dL (70-99) White Blood Count 16.7x10^3/uL (4.0-11.0) Red Blood Count 4.04x10^6/uL (4.30-5.70) Hemoglobin 11.9g/dL (13.0-17.5) Hematocrit 36.9% (39.0-53.0) Mean Corpuscular Volume 91fL (79-100) Mean Corpuscular Hemoglobin 30pg (25-35) Mean Corpuscular Hemoglobin Concent 32g/dL (31-37) Red Cell Distribution Width 14.6% (11.5-14.5) Platelet Count 177x10^3/uL (140-400) Neutrophils (%) (Auto) 89% (31-73) Lymphocytes (%) (Auto) 6% (24-48) Monocytes (%) (Auto) 6% (0-9) Eosinophils (%) (Auto) 0% (0-3) Basophils (%) (Auto) 0% (0-3) Neutrophils # (Auto) 14.8x10^3uL (1.8-7.7) Lymphocytes # (Auto) 0.9x10^3/uL (1.0-4.8) Monocytes # (Auto) 0.9x10^3/uL (0.0-1.1) Eosinophils # (Auto) 0.0x10^3/uL (0.0-0.7) Basophils # (Auto) 0.0x10^3/uL (0.0-0.2) Segmented Neutrophils % 87% (35-66) Band Neutrophils % 6% (0-9) Lymphocytes % 4% (24-48) Monocytes % 3% (0-10) Platelet Estimate Adequate (ADEQUATE) Sodium Level 140mmol/L (136-145) Potassium Level 3.9mmol/L (3.5-5.1) Chloride Level 106mmol/L (98-107) Carbon Dioxide Level 22mmol/L (21-32) Anion Gap 12 (6-14) Blood Urea Nitrogen 16mg/dL (8-26) Creatinine 0.9mg/dL (0.7-1.3) Estimated GFR (Cockcroft-Gault) 80.6 Glucose Level 313mg/dL (70-99) Calcium Level 8.1mg/dL (8.5-10.1) Test 10/02/16 08:43 Glucose (Fingerstick) 262mg/dL (70-99) Laboratory Tests Test 10/01/16 17:09 10/01/16 20:20 10/01/16 21:43 10/02/16 04:56 Glucose (Fingerstick) 215mg/dL (70-99) 233mg/dL (70-99) 246mg/dL (70-99) 274mg/dL (70-99) Test 10/02/16 06:38 10/02/16 08:43 White Blood Count 16.7x10^3/uL (4.0-11.0) Red Blood Count 4.04x10^6/uL (4.30-5.70) Hemoglobin 11.9g/dL (13.0-17.5) Hematocrit 36.9% (39.0-53.0) Mean Corpuscular Volume 91fL (79-100) Mean Corpuscular Hemoglobin 30pg (25-35) Mean Corpuscular Hemoglobin Concent 32g/dL (31-37) Red Cell Distribution Width 14.6% (11.5-14.5) Platelet Count 177x10^3/uL (140-400) Neutrophils (%) (Auto) 89% (31-73) Lymphocytes (%) (Auto) 6% (24-48) Monocytes (%) (Auto) 6% (0-9) Eosinophils (%) (Auto) 0% (0-3) Basophils (%) (Auto) 0% (0-3) Neutrophils # (Auto) 14.8x10^3uL (1.8-7.7) Lymphocytes # (Auto) 0.9x10^3/uL (1.0-4.8) Monocytes # (Auto) 0.9x10^3/uL (0.0-1.1) Eosinophils # (Auto) 0.0x10^3/uL (0.0-0.7) Basophils # (Auto) 0.0x10^3/uL (0.0-0.2) Segmented Neutrophils % 87% (35-66) Band Neutrophils % 6% (0-9) Lymphocytes % 4% (24-48) Monocytes % 3% (0-10) Platelet Estimate Adequate (ADEQUATE) Sodium Level 140mmol/L (136-145) Potassium Level 3.9mmol/L (3.5-5.1) Chloride Level 106mmol/L (98-107) Carbon Dioxide Level 22mmol/L (21-32) Anion Gap 12 (6-14) Blood Urea Nitrogen 16mg/dL (8-26) Creatinine 0.9mg/dL (0.7-1.3) Estimated GFR (Cockcroft-Gault) 80.6 Glucose Level 313mg/dL (70-99) Calcium Level 8.1mg/dL (8.5-10.1) Glucose (Fingerstick) 262mg/dL (70-99) Images Images Head CT was negative Assessment/Plan Assessment/Plan Impression: Metabolic encephalopathy, perhaps he had some sepsis from the cholecystitis. He is currently neurologically intact Diabetic peripheral neuropathy No evidence of stroke, seizure, or central nervous system infection Mild essential tremor Recommendations: No additional neurological studies needed Thank you for letting me help with the patient's care. OTF LOYOLA MD Oct 02, 2016 12:28
[2016-10-02 12:29] LABS: INR 1.7 (0.8-1.1)
--- NOTE | 2016-10-02 13:15 | CARD ---
APPROVED REPORT EXAM: Two-dimensional and M-mode echocardiogram with Doppler and color Doppler. Other Information Quality : Fair Rhythm : Tachycardia INDICATION Dyspnea Fatigue Hypertension/HCVD 2D DIMENSIONS RVDd2.8 (2.9-3.5cm)Left Atrium(2D)2.7 (1.6-4.0cm) IVSd1.3 (0.7-1.1cm)Aortic Root(2D)3.3 (2.0-3.7cm) LVDd3.3 (3.9-5.9cm)LVOT Diameter2.1 (1.8-2.4cm) PWd1.1 (0.7-1.1cm)LVDs2.3 (2.5-4.0cm) FS (%) 31.8 %SV27.8 ml LVEF(%)60.0 (>50%) Aortic Valve AoV Peak Jae.219.0cm/sAoV VTI34.9cm AO Peak GR.19.2mmHgLVOT Peak Jae.122.5cm/s AO Mean GR.13mmHgAVA (VMAX)1.96cm2 LEFT VENTRICLE The left ventricle is normal size. There is mild concentric left ventricular hypertrophy. The left ve ntricular systolic function is normal and the ejection fraction is within normal range. The Ejection Fraction is 60%. There is normal LV segmental wall motion. RIGHT VENTRICLE The right ventricle is normal size. The right ventricular systolic function is normal. ATRIA The left atrium size is normal. The right atrium size is normal. The interatrial septum is intact wit h no evidence for an atrial septal defect or patent foramen ovale as noted on 2-D or Doppler imaging. AORTIC VALVE The aortic valve is calcified but opens well. Doppler and Color Flow revealed no significant aortic r egurgitation. There is no significant aortic valvular stenosis. MITRAL VALVE The mitral valve leaflets are calcified. There is no mitral valve stenosis. Doppler and Color Flow re vealed no mitral valve regurgitation noted. TRICUSPID VALVE The tricuspid valve is not well visualized. Doppler and Color Flow revealed no tricuspid valve regurg itation noted. There is no tricuspid valve stenosis. PULMONIC VALVE The pulmonic valve is not well visualized. Doppler and Color Flow revealed no pulmonic valvular regur gitation. There is no pulmonic valvular stenosis. GREAT VESSELS The aortic root is normal in size. Normal pulmonary venous flow (Doppler). The IVC is normal in size and collapses >50% with inspiration. PERICARDIAL EFFUSION There is no evidence of significant pericardial effusion. Critical Notification Critical Value: No <Conclusion> The left ventricular systolic function is normal and the ejection fraction is within normal range. The Ejection Fraction is 60%. There is mild concentric left ventricular hypertrophy. The left atrium size is normal. The right atrium size is normal. The aortic valve is calcified but opens well. The mitral valve leaflets are calcified. The tricuspid valve is not well visualized. The pulmonic valve is not well visualized. There is no evidence of significant pericardial effusion.
--- NOTE | 2016-10-02 14:21 | PDOC ---
SURGICAL PROGRESS NOTE Subjective more awake, alert Vital Signs Vital Signs Date Time Temp Pulse Resp B/P Pulse Ox O2 Delivery O2 Flow Rate FiO2 10/02/16 14:00 102 14 133/83 93 Room Air 10/02/16 12:00 4.0 10/02/16 12:00 98.1 98.1 I&O Intake and Output 10/02/16 07:00 Intake Total 2233 ml Output Total 1375 ml Balance 858 ml Intake Oral 35 ml IV Total 2198 ml Output Urine Total 1025 ml Drainage Total 350 ml # Voids 3 PATIENT HAS A RIZO: Yes General: Alert, Oriented X3, No acute distress Abdomen: Soft, Other (ABBY with some bloody drainage) Labs Laboratory Tests Test 09/30/16 20:25 09/30/16 23:01 10/01/16 05:35 10/01/16 07:00 White Blood Count 12.0x10^3/uL (4.0-11.0) Red Blood Count 4.56x10^6/uL (4.30-5.70) Hemoglobin 13.6g/dL (13.0-17.5) Hematocrit 41.2% (39.0-53.0) Mean Corpuscular Volume 91fL (79-100) Mean Corpuscular Hemoglobin 30pg (25-35) Mean Corpuscular Hemoglobin Concent 33g/dL (31-37) Red Cell Distribution Width 14.5% (11.5-14.5) Platelet Count 226x10^3/uL (140-400) Neutrophils (%) (Auto) 70% (31-73) Lymphocytes (%) (Auto) 21% (24-48) Monocytes (%) (Auto) 8% (0-9) Eosinophils (%) (Auto) 1% (0-3) Basophils (%) (Auto) 0% (0-3) Neutrophils # (Auto) 8.4x10^3uL (1.8-7.7) Lymphocytes # (Auto) 2.5x10^3/uL (1.0-4.8) Monocytes # (Auto) 1.0x10^3/uL (0.0-1.1) Eosinophils # (Auto) 0.1x10^3/uL (0.0-0.7) Basophils # (Auto) 0.0x10^3/uL (0.0-0.2) Sodium Level 139mmol/L (136-145) Potassium Level 3.6mmol/L (3.5-5.1) Chloride Level 102mmol/L (98-107) Carbon Dioxide Level 25mmol/L (21-32) Anion Gap 12 (6-14) Blood Urea Nitrogen 20mg/dL (8-26) Creatinine 0.9mg/dL (0.7-1.3) Estimated GFR (Cockcroft-Gault) 80.6 Glucose Level 179mg/dL (70-99) Calcium Level 9.1mg/dL (8.5-10.1) Total Bilirubin 0.3mg/dL (0.2-1.0) Direct Bilirubin 0.1mg/dL (0.0-0.2) Aspartate Amino Transf (AST/SGOT) 11U/L (15-37) Alanine Aminotransferase (ALT/SGPT) 21U/L (16-63) Alkaline Phosphatase 117U/L (46-116) Troponin I Quantitative < 0.017ng/mL (0.000-0.055) < 0.017ng/mL (0.000-0.055) HJ-Oby-T-Type Natriuretic Peptide 32pg/mL (0-449) Total Protein 7.7g/dL (6.4-8.2) Albumin 3.8g/dL (3.4-5.0) Lipase 87U/L (73-393) Glucose (Fingerstick) 183mg/dL (70-99) Urine Collection Type Unknown Urine Color Yellow Urine Clarity Clear Urine pH 7.0 Urine Specific [place] 1.025 Urine Protein Negativemg/dL (NEG-TRACE) Urine Glucose (UA) Negativemg/dL (NEG) Urine Ketones (Stick) Tracemg/dL (NEG) Urine Blood Negative (NEG) Urine Nitrite Negative (NEG) Urine Bilirubin Negative (NEG) Urine Urobilinogen Dipstick 1.0mg/dL (0.2 mg/dL) Urine Leukocyte Esterase Negative (NEG) Urine RBC Rare/HPF (0-2) Urine WBC Occ/HPF (0-4) Urine Squamous Epithelial Cells None/LPF Urine Bacteria Few/HPF (0-FEW) Urine Mucus Slight/LPF Test 10/01/16 07:34 10/01/16 09:35 10/01/16 11:32 10/01/16 17:09 Glucose (Fingerstick) 190mg/dL (70-99) 208mg/dL (70-99) 215mg/dL (70-99) Troponin I Quantitative < 0.017ng/mL (0.000-0.055) Test 10/01/16 20:20 10/01/16 21:43 10/02/16 04:56 10/02/16 06:38 Glucose (Fingerstick) 233mg/dL (70-99) 246mg/dL (70-99) 274mg/dL (70-99) White Blood Count 16.7x10^3/uL (4.0-11.0) Red Blood Count 4.04x10^6/uL (4.30-5.70) Hemoglobin 11.9g/dL (13.0-17.5) Hematocrit 36.9% (39.0-53.0) Mean Corpuscular Volume 91fL (79-100) Mean Corpuscular Hemoglobin 30pg (25-35) Mean Corpuscular Hemoglobin Concent 32g/dL (31-37) Red Cell Distribution Width 14.6% (11.5-14.5) Platelet Count 177x10^3/uL (140-400) Neutrophils (%) (Auto) 89% (31-73) Lymphocytes (%) (Auto) 6% (24-48) Monocytes (%) (Auto) 6% (0-9) Eosinophils (%) (Auto) 0% (0-3) Basophils (%) (Auto) 0% (0-3) Neutrophils # (Auto) 14.8x10^3uL (1.8-7.7) Lymphocytes # (Auto) 0.9x10^3/uL (1.0-4.8) Monocytes # (Auto) 0.9x10^3/uL (0.0-1.1) Eosinophils # (Auto) 0.0x10^3/uL (0.0-0.7) Basophils # (Auto) 0.0x10^3/uL (0.0-0.2) Segmented Neutrophils % 87% (35-66) Band Neutrophils % 6% (0-9) Lymphocytes % 4% (24-48) Monocytes % 3% (0-10) Platelet Estimate Adequate (ADEQUATE) Sodium Level 140mmol/L (136-145) Potassium Level 3.9mmol/L (3.5-5.1) Chloride Level 106mmol/L (98-107) Carbon Dioxide Level 22mmol/L (21-32) Anion Gap 12 (6-14) Blood Urea Nitrogen 16mg/dL (8-26) Creatinine 0.9mg/dL (0.7-1.3) Estimated GFR (Cockcroft-Gault) 80.6 Glucose Level 313mg/dL (70-99) Calcium Level 8.1mg/dL (8.5-10.1) Test 10/02/16 08:43 10/02/16 11:20 Glucose (Fingerstick) 262mg/dL (70-99) Prothrombin Time 19.0SEC (11.7-14.0) Prothromb Time International Ratio 1.7 (0.8-1.1) Laboratory Tests Test 10/01/16 17:09 10/01/16 20:20 10/01/16 21:43 10/02/16 04:56 Glucose (Fingerstick) 215mg/dL (70-99) 233mg/dL (70-99) 246mg/dL (70-99) 274mg/dL (70-99) Test 10/02/16 06:38 10/02/16 08:43 10/02/16 11:20 White Blood Count 16.7x10^3/uL (4.0-11.0) Red Blood Count 4.04x10^6/uL (4.30-5.70) Hemoglobin 11.9g/dL (13.0-17.5) Hematocrit 36.9% (39.0-53.0) Mean Corpuscular Volume 91fL (79-100) Mean Corpuscular Hemoglobin 30pg (25-35) Mean Corpuscular Hemoglobin Concent 32g/dL (31-37) Red Cell Distribution Width 14.6% (11.5-14.5) Platelet Count 177x10^3/uL (140-400) Neutrophils (%) (Auto) 89% (31-73) Lymphocytes (%) (Auto) 6% (24-48) Monocytes (%) (Auto) 6% (0-9) Eosinophils (%) (Auto) 0% (0-3) Basophils (%) (Auto) 0% (0-3) Neutrophils # (Auto) 14.8x10^3uL (1.8-7.7) Lymphocytes # (Auto) 0.9x10^3/uL (1.0-4.8) Monocytes # (Auto) 0.9x10^3/uL (0.0-1.1) Eosinophils # (Auto) 0.0x10^3/uL (0.0-0.7) Basophils # (Auto) 0.0x10^3/uL (0.0-0.2) Segmented Neutrophils % 87% (35-66) Band Neutrophils % 6% (0-9) Lymphocytes % 4% (24-48) Monocytes % 3% (0-10) Platelet Estimate Adequate (ADEQUATE) Sodium Level 140mmol/L (136-145) Potassium Level 3.9mmol/L (3.5-5.1) Chloride Level 106mmol/L (98-107) Carbon Dioxide Level 22mmol/L (21-32) Anion Gap 12 (6-14) Blood Urea Nitrogen 16mg/dL (8-26) Creatinine 0.9mg/dL (0.7-1.3) Estimated GFR (Cockcroft-Gault) 80.6 Glucose Level 313mg/dL (70-99) Calcium Level 8.1mg/dL (8.5-10.1) Glucose (Fingerstick) 262mg/dL (70-99) Prothrombin Time 19.0SEC (11.7-14.0) Prothromb Time International Ratio 1.7 (0.8-1.1) Problem List Problems Medical Problems: (1) Chest pain Status: Acute (2) SOB (shortness of breath) Status: Acute Assessment/Plan POD 1 l/s ofe for gangrenous cholecystitis start diet to floor Problems: TOBI CHAWLA MD Oct 02, 2016 14:21
--- NOTE | 2016-10-02 14:22 | PDOC ---
PROGRESS NOTES Subjective Subjective Patient had a cholecystectomy done and tolerated the surgery well. No cardiac complaints Objective Objective Vital Signs Date Time Temp Pulse Resp B/P Pulse Ox O2 Delivery O2 Flow Rate FiO2 10/02/16 14:00 102 14 133/83 93 Room Air 10/02/16 12:00 4.0 10/02/16 12:00 98.1 98.1 Intake and Output 10/02/16 07:00 Intake Total 2233 ml Output Total 1375 ml Balance 858 ml Intake Oral 35 ml IV Total 2198 ml Output Urine Total 1025 ml Drainage Total 350 ml # Voids 3 Physical Exam Physical Exam No significant changes in cardiac exam Assessment Assessment Patient compensated cardiac-[place] Problems Medical Problems: (1) Chest pain Status: Acute (2) SOB (shortness of breath) Status: Acute Plan Plan of Care Agree with present plan Comment Review of Relevant I have reviewed the following items olimpia (where applicable) has been applied. Labs Laboratory Tests Test 09/30/16 20:25 09/30/16 23:01 10/01/16 05:35 10/01/16 07:00 White Blood Count 12.0x10^3/uL (4.0-11.0) Red Blood Count 4.56x10^6/uL (4.30-5.70) Hemoglobin 13.6g/dL (13.0-17.5) Hematocrit 41.2% (39.0-53.0) Mean Corpuscular Volume 91fL (79-100) Mean Corpuscular Hemoglobin 30pg (25-35) Mean Corpuscular Hemoglobin Concent 33g/dL (31-37) Red Cell Distribution Width 14.5% (11.5-14.5) Platelet Count 226x10^3/uL (140-400) Neutrophils (%) (Auto) 70% (31-73) Lymphocytes (%) (Auto) 21% (24-48) Monocytes (%) (Auto) 8% (0-9) Eosinophils (%) (Auto) 1% (0-3) Basophils (%) (Auto) 0% (0-3) Neutrophils # (Auto) 8.4x10^3uL (1.8-7.7) Lymphocytes # (Auto) 2.5x10^3/uL (1.0-4.8) Monocytes # (Auto) 1.0x10^3/uL (0.0-1.1) Eosinophils # (Auto) 0.1x10^3/uL (0.0-0.7) Basophils # (Auto) 0.0x10^3/uL (0.0-0.2) Sodium Level 139mmol/L (136-145) Potassium Level 3.6mmol/L (3.5-5.1) Chloride Level 102mmol/L (98-107) Carbon Dioxide Level 25mmol/L (21-32) Anion Gap 12 (6-14) Blood Urea Nitrogen 20mg/dL (8-26) Creatinine 0.9mg/dL (0.7-1.3) Estimated GFR (Cockcroft-Gault) 80.6 Glucose Level 179mg/dL (70-99) Calcium Level 9.1mg/dL (8.5-10.1) Total Bilirubin 0.3mg/dL (0.2-1.0) Direct Bilirubin 0.1mg/dL (0.0-0.2) Aspartate Amino Transf (AST/SGOT) 11U/L (15-37) Alanine Aminotransferase (ALT/SGPT) 21U/L (16-63) Alkaline Phosphatase 117U/L (46-116) Troponin I Quantitative < 0.017ng/mL (0.000-0.055) < 0.017ng/mL (0.000-0.055) HS-Lzk-M-Type Natriuretic Peptide 32pg/mL (0-449) Total Protein 7.7g/dL (6.4-8.2) Albumin 3.8g/dL (3.4-5.0) Lipase 87U/L (73-393) Glucose (Fingerstick) 183mg/dL (70-99) Urine Collection Type Unknown Urine Color Yellow Urine Clarity Clear Urine pH 7.0 Urine Specific [place] 1.025 Urine Protein Negativemg/dL (NEG-TRACE) Urine Glucose (UA) Negativemg/dL (NEG) Urine Ketones (Stick) Tracemg/dL (NEG) Urine Blood Negative (NEG) Urine Nitrite Negative (NEG) Urine Bilirubin Negative (NEG) Urine Urobilinogen Dipstick 1.0mg/dL (0.2 mg/dL) Urine Leukocyte Esterase Negative (NEG) Urine RBC Rare/HPF (0-2) Urine WBC Occ/HPF (0-4) Urine Squamous Epithelial Cells None/LPF Urine Bacteria Few/HPF (0-FEW) Urine Mucus Slight/LPF Test 10/01/16 07:34 10/01/16 09:35 10/01/16 11:32 10/01/16 17:09 Glucose (Fingerstick) 190mg/dL (70-99) 208mg/dL (70-99) 215mg/dL (70-99) Troponin I Quantitative < 0.017ng/mL (0.000-0.055) Test 10/01/16 20:20 10/01/16 21:43 10/02/16 04:56 10/02/16 06:38 Glucose (Fingerstick) 233mg/dL (70-99) 246mg/dL (70-99) 274mg/dL (70-99) White Blood Count 16.7x10^3/uL (4.0-11.0) Red Blood Count 4.04x10^6/uL (4.30-5.70) Hemoglobin 11.9g/dL (13.0-17.5) Hematocrit 36.9% (39.0-53.0) Mean Corpuscular Volume 91fL (79-100) Mean Corpuscular Hemoglobin 30pg (25-35) Mean Corpuscular Hemoglobin Concent 32g/dL (31-37) Red Cell Distribution Width 14.6% (11.5-14.5) Platelet Count 177x10^3/uL (140-400) Neutrophils (%) (Auto) 89% (31-73) Lymphocytes (%) (Auto) 6% (24-48) Monocytes (%) (Auto) 6% (0-9) Eosinophils (%) (Auto) 0% (0-3) Basophils (%) (Auto) 0% (0-3) Neutrophils # (Auto) 14.8x10^3uL (1.8-7.7) Lymphocytes # (Auto) 0.9x10^3/uL (1.0-4.8) Monocytes # (Auto) 0.9x10^3/uL (0.0-1.1) Eosinophils # (Auto) 0.0x10^3/uL (0.0-0.7) Basophils # (Auto) 0.0x10^3/uL (0.0-0.2) Segmented Neutrophils % 87% (35-66) Band Neutrophils % 6% (0-9) Lymphocytes % 4% (24-48) Monocytes % 3% (0-10) Platelet Estimate Adequate (ADEQUATE) Sodium Level 140mmol/L (136-145) Potassium Level 3.9mmol/L (3.5-5.1) Chloride Level 106mmol/L (98-107) Carbon Dioxide Level 22mmol/L (21-32) Anion Gap 12 (6-14) Blood Urea Nitrogen 16mg/dL (8-26) Creatinine 0.9mg/dL (0.7-1.3) Estimated GFR (Cockcroft-Gault) 80.6 Glucose Level 313mg/dL (70-99) Calcium Level 8.1mg/dL (8.5-10.1) Test 10/02/16 08:43 10/02/16 11:20 Glucose (Fingerstick) 262mg/dL (70-99) Prothrombin Time 19.0SEC (11.7-14.0) Prothromb Time International Ratio 1.7 (0.8-1.1) Laboratory Tests Test 10/01/16 17:09 10/01/16 20:20 10/01/16 21:43 10/02/16 04:56 Glucose (Fingerstick) 215mg/dL (70-99) 233mg/dL (70-99) 246mg/dL (70-99) 274mg/dL (70-99) Test 10/02/16 06:38 10/02/16 08:43 10/02/16 11:20 White Blood Count 16.7x10^3/uL (4.0-11.0) Red Blood Count 4.04x10^6/uL (4.30-5.70) Hemoglobin 11.9g/dL (13.0-17.5) Hematocrit 36.9% (39.0-53.0) Mean Corpuscular Volume 91fL (79-100) Mean Corpuscular Hemoglobin 30pg (25-35) Mean Corpuscular Hemoglobin Concent 32g/dL (31-37) Red Cell Distribution Width 14.6% (11.5-14.5) Platelet Count 177x10^3/uL (140-400) Neutrophils (%) (Auto) 89% (31-73) Lymphocytes (%) (Auto) 6% (24-48) Monocytes (%) (Auto) 6% (0-9) Eosinophils (%) (Auto) 0% (0-3) Basophils (%) (Auto) 0% (0-3) Neutrophils # (Auto) 14.8x10^3uL (1.8-7.7) Lymphocytes # (Auto) 0.9x10^3/uL (1.0-4.8) Monocytes # (Auto) 0.9x10^3/uL (0.0-1.1) Eosinophils # (Auto) 0.0x10^3/uL (0.0-0.7) Basophils # (Auto) 0.0x10^3/uL (0.0-0.2) Segmented Neutrophils % 87% (35-66) Band Neutrophils % 6% (0-9) Lymphocytes % 4% (24-48) Monocytes % 3% (0-10) Platelet Estimate Adequate (ADEQUATE) Sodium Level 140mmol/L (136-145) Potassium Level 3.9mmol/L (3.5-5.1) Chloride Level 106mmol/L (98-107) Carbon Dioxide Level 22mmol/L (21-32) Anion Gap 12 (6-14) Blood Urea Nitrogen 16mg/dL (8-26) Creatinine 0.9mg/dL (0.7-1.3) Estimated GFR (Cockcroft-Gault) 80.6 Glucose Level 313mg/dL (70-99) Calcium Level 8.1mg/dL (8.5-10.1) Glucose (Fingerstick) 262mg/dL (70-99) Prothrombin Time 19.0SEC (11.7-14.0) Prothromb Time International Ratio 1.7 (0.8-1.1) Microbiology 10/01/16 Gram Stain - Final, Complete 10/01/16 Gram Stain - Final, Complete Medications Current Medications Aspirin (Children'S Aspirin) 324 mg 1X ONCE PO Last administered on at 20:29; Start 09/30/16 at 20:45; Stop 09/30/16 at 20:46; Status DC Nitroglycerin (Nitrostat) 0.4 mg PRN Q5MIN PRN SL CP RATING > 1/10 Last administered on 09/30/16at 20:33; Start 09/30/16 at 20:30; Stop 09/30/16 at 23 :59; Status DC Morphine Sulfate 4 mg 1X ONCE IV Last administered on 09/30/16at 21:20; Start 09/30/16 at 21:15; Stop 09/30/16 at 21:16; Status DC Ondansetron HCl (Zofran) 4 mg PRN Q8HRS PRN IV NAUSEA/VOMITING; Start at 21:45; Stop 10/01/16 at 14:11; Status DC Morphine Sulfate 4 mg PRN Q2HR PRN IV PAIN Last administered on 10/01/16at 15: 05; Start 09/30/16 at 21:45; Stop 10/01/16 at 21:44; Status DC Acetaminophen (Tylenol) 650 mg PRN Q4HRS PRN PO FEVER Last administered on at 02:53; Start 09/30/16 at 21:45; Stop 10/01/16 at 14:11; Status DC Nitroglycerin (Nitrostat) 0.4 mg PRN Q5MIN PRN SL CHEST PAIN; Start 09/30/16 at 21:45; Stop 10/01/16 at 21:44; Status DC Insulin Aspart (Novolog) 0-7 UNITS TIDWMEALS SQ Last administered on at 08:57; Start 10/01/16 at 08:00; Stop 10/01/16 at 09:35; Status DC Dextrose 12.5 gm PRN Q15MIN PRN IV SEE COMMENTS; Start 09/30/16 at 21:45 Acetaminophen (Tylenol) 325 mg PRN Q6HRS PRN PO MILD PAIN / TEMP; Start at 09:30 Acetaminophen/ Hydrocodone Bitart (Lortab 5/325) 1 tab PRN Q6HRS PRN PO MODERATE TO SEVERE PAIN Last administered on 10/02/16at 04:24; Start 10/01/16 at 09:30 Hydralazine HCl (Apresoline) 10 mg PRN Q4HRS PRN IVP ELEVATED BP, SEE COMMENTS ; Start 10/01/16 at 09:30 Ondansetron HCl (Zofran) 4 mg PRN Q8HRS PRN IV NAUSEA/VOMITING 1ST CHOICE; Start 10/01/16 at 09:30; Stop 10/02/16 at 07:58; Status DC Albuterol Sulfate (Ventolin Neb Soln) 2.5 mg PRN Q4HRS PRN NEB SHORTNESS OF BREATH; Start 10/01/16 at 09:30 Levothyroxine Sodium (Synthroid) 50 mcg DAILY07 PO ; Start 10/01/16 at 10:00; Stop 10/02/16 at 09:47; Status DC Metformin HCl (Glucophage) 1,000 mg DAILYWBKFT PO ; Start 10/01/16 at 10:00 Insulin Detemir (Levemir) 10 units QHS SQ Last administered on 10/01/16at 21:57 ; Start 10/01/16 at 21:00; Stop 10/02/16 at 07:57; Status DC Insulin Aspart (Novolog) 0-9 UNITS TIDWMEALS SQ Last administered on at 12:41; Start 10/01/16 at 12:00 Dextrose 12.5 gm 12.5 gm PRN Q15MIN PRN IV SEE COMMENTS; Start 10/01/16 at 09: 30; Status UNV Sodium Chloride (Iv Sodium Chloride 0.9% 1000ml Bag) 1,000 ml @ 75 mls/hr 1X ONCE IV ; Start 10/01/16 at 11:45; Stop 10/01/16 at 14:11; Status DC Pantoprazole Sodium (Protonix) 40 mg DAILYAC PO ; Start 10/01/16 at 12:00; Stop 10/02/16 at 09:47; Status DC Iohexol 75 ml 75 ml 1X ONCE IV Last administered on 10/01/16at 12:21; Start 10/01/16 at 12:15; Stop 10/01/16 at 12:16; Status DC Sodium Chloride 1,000 ml @ 75 mls/hr [id number] IV Last administered on at 00:23; Start 10/01/16 at 14:15 Piperacillin Sod/ Tazobactam Sod/ Sodium Chloride (Zosyn/Iv Sodium Chloride 0.9 % 50ml) 50 ml @ 100 mls/hr Q6HRS IV Last administered on 10/02/16at 12:26; Start 10/01/16 at 18:00 Fentanyl Citrate (Fentanyl 2ml Vial) 50 mcg PRN Q5MIN PRN IV Acute Pain; Start 10/01/16 at 16:00; Stop 10/01/16 at 23:00; Status DC Morphine Sulfate 4 mg PRN Q10MIN PRN IV Moderate Pain; Start 10/01/16 at 16:00 ; Stop 10/01/16 at 23:00; Status DC Hydromorphone HCl (Dilaudid) 0.4 mg PRN Q10MIN PRN IV Moderate to severe pain; Start 10/01/16 at 16:00; Stop 10/01/16 at 23:00; Status DC Prochlorperazine Edisylate (Compazine) 5 mg PRN Q6HRS PRN IV Nausea/Vomiting, 1st Choice; Start 10/01/16 at 16:00; Stop 10/01/16 at 23:00; Status DC Diphenhydramine HCl (Benadryl) 12.5 mg PRN Q2HR PRN IV ITCHING; Start at 16:00; Stop 10/01/16 at 23:00; Status DC Midazolam HCl (Versed) 2 mg PRN 1X PRN IV PRIOR TO PROCEDURE; Start 10/01/16 at 16:00; Stop 10/01/16 at 23:00; Status DC Midazolam HCl (Versed) 1 mg PRN 1X PRN IV PRIOR TO PROCEDURE; Start 10/01/16 at 16:00; Stop 10/01/16 at 23:00; Status DC Fentanyl Citrate (Fentanyl 2ml Vial) 25 mcg PRN Q5MIN PRN IV X 2 DOSES FOR PAIN ; Start 10/01/16 at 16:00; Stop 10/01/16 at 23:00; Status DC Fentanyl Citrate 50 mcg 50 mcg PRN Q5MIN PRN IV X 2 DOSES FOR PAIN; Start at 16:00; Stop 10/01/16 at 23:00; Status DC Lactated Ringer's (Iv Lactated Ringers) 1,000 ml @ 125 mls/hr Q8H IV ; Start 10/01/16 at 15:49; Stop 10/01/16 at 20:43; Status DC Lidocaine HCl 2 ml 1X PRN PRN ID IV START; Start 10/01/16 at 16:00; Stop at 23:00; Status DC Cellulose 1 each STK-MED ONCE .ROUTE Last administered on 10/01/16at 19:19; Start 10/01/16 at 16:09; Stop 10/01/16 at 16:10; Status DC Bupivacaine HCl/ Epinephrine Bitart (Marcaine-Epi 0.5%-[id number]) 50 ml STK-MED ONCE .ROUTE Last administered on 10/01/16at 18:04; Start 10/01/16 at 16:10; Stop 10/01/16 at 16:11; Status DC Glucagon (Glucagen) 1 mg STK-MED ONCE .ROUTE ; Start 10/01/16 at 16:10; Stop 10/01/16 at 16:11; Status DC Iohexol 50 ml 50 ml STK-MED ONCE .ROUTE Last administered on 10/01/16at 18:04; Start 10/01/16 at 16:10; Stop 10/01/16 at 16:11; Status DC Acetaminophen (Ofirmev) 100 ml @ 400 mls/hr 1X PACU PRN IV FEVER Last administered on 10/01/16at 17:37; Start 10/01/16 at 17:30; Stop 10/01/16 at 23 :00; Status DC Rocuronium [place] (Zemuron) 50 mg STK-MED ONCE .ROUTE ; Start 10/01/16 at 17: 54; Stop 10/01/16 at 17:55; Status DC Lidocaine HCl 100 mg STK-MED ONCE .ROUTE ; Start 10/01/16 at 17:54; Stop 10/01 at 17:55; Status DC Fentanyl Citrate 100 mcg 100 mcg STK-MED ONCE .ROUTE ; Start 10/01/16 at 17:54 ; Stop 10/01/16 at 17:55; Status DC Propofol (Diprivan) 20 ml @ As Directed STK-MED ONCE IV ; Start 10/01/16 at 17: 58; Stop 10/01/16 at 17:59; Status DC Dexamethasone Sodium Phosphate (Decadron) 20 mg STK-MED ONCE .ROUTE ; Start at 18:20; Stop 10/01/16 at 18:21; Status DC Desflurane (Suprane) 30 ml STK-MED ONCE IH ; Start 10/01/16 at 18:20; Stop at 18:21; Status DC Esmolol HCl (Brevibloc) 100 mg STK-MED ONCE IV ; Start 10/01/16 at 18:55; Stop 10/01/16 at 18:56; Status DC Fentanyl Citrate (Fentanyl 2ml Vial) 100 mcg STK-MED ONCE .ROUTE ; Start at 19:35; Stop 10/01/16 at 19:36; Status DC Insulin Detemir (Levemir) 15 units QHS SQ ; Start 10/02/16 at 21:00 Ondansetron HCl (Zofran) 4 mg PRN Q6HRS PRN IV NAUSEA/VOMITING 1ST CHOICE; Start 10/02/16 at 09:30 Pantoprazole Sodium 40 mg 40 mg DAILYAC IVP Last administered on 10/02/16at 10: 04; Start 10/02/16 at 09:45 Levothyroxine Sodium/Sodium Chloride (Synthroid/Iv Sodium Chloride 0.9% 50ml) 5 ml @ 100 mls/hr DAILY IVP Last administered on 10/02/16at 10:23; Start at 09:45 Morphine Sulfate 2 mg PRN Q2HR PRN IV PAIN Last administered on 10/02/16at 10: 23; Start 10/02/16 at 10:15 Active Scripts Active Reported Metformin Hcl 1,000 Mg Tablet Synthroid (Levothyroxine Sodium) 50 Mcg Tablet Lantus Solostar (Insulin Glargine,Hum.rec.anlog) 100 Unit/1 Ml Insuln.pen Novolog Flexpen (Insulin Aspart) 100 Unit/1 Ml Insuln.pen Vitals/I & O Vital Sign - Last 24 Hours 10/01/16 10/01/16 10/01/16 10/01/16 15:05 15:15 15:35 17:10 Temp 98.7 102.9 98.7 102.9 Pulse 107 121 Resp 16 18 21 B/P 130/71 155/77 Pulse Ox 96 96 91 O2 Delivery Room Air Room Air Room Air Room Air 10/01/16 10/01/16 10/01/16 10/01/16 19:52 20:07 20:10 20:22 Temp 99.8 99.8 Pulse 84 93 95 Resp 18 16 22 B/P 105/59 108/60 119/67 Pulse Ox 95 94 94 O2 Delivery Simple Mask Simple Mask Mask Nasal Cannula O2 Flow Rate 10 10 10 4 10/01/16 10/01/16 10/01/16 10/01/16 20:37 20:55 21:00 22:00 Temp 97.6 99.0 97.6 99.0 Pulse 94 92 94 Resp 24 13 20 B/P 119/66 121/69 114/63 Pulse Ox 94 96 95 O2 Delivery Nasal Cannula Nasal Cannula Nasal Cannula Nasal Cannula O2 Flow Rate 4 4.0 4.0 4.0 10/01/16 10/02/16 10/02/16 10/02/16 23:00 00:00 00:00 01:00 Temp 98.2 98.2 Pulse 88 90 90 Resp 15 17 12 B/P 112/70 108/54 79/53 Pulse Ox 96 95 95 O2 Delivery Nasal Cannula Nasal Cannula Nasal Cannula Nasal Cannula O2 Flow Rate 4.0 3.0 3.0 3.0 10/02/16 10/02/16 10/02/16 10/02/16 02:00 03:00 04:00 04:00 Temp 97.3 97.3 Pulse 91 90 103 Resp 14 15 17 B/P 84/59 107/59 125/68 Pulse Ox 96 96 93 O2 Delivery Nasal Cannula Nasal Cannula Nasal Cannula Nasal Cannula O2 Flow Rate 3.0 3.0 3.0 3.0 10/02/16 10/02/16 10/02/16 10/02/16 04:24 05:00 06:00 06:24 Pulse 104 97 Resp 13 18 10 10 B/P 111/82 101/60 Pulse Ox 93 93 93 93 O2 Delivery Nasal Cannula Nasal Cannula Nasal Cannula Nasal Cannula O2 Flow Rate 3.0 3.0 3.0 3.0 10/02/16 10/02/16 10/02/16 10/02/16 07:00 08:00 08:00 09:00 Temp 98.1 98.1 Pulse 92 98 92 Resp 11 13 13 B/P 82/44 122/73 117/72 Pulse Ox 93 92 93 O2 Delivery Nasal Cannula Nasal Cannula Nasal Cannula Nasal Cannula O2 Flow Rate 4.0 4.0 4.0 4.0 10/02/16 10/02/16 10/02/16 10/02/16 10:00 10:23 11:00 12:00 Temp 98.1 98.1 Pulse 96 102 102 Resp 18 17 20 16 B/P 131/74 132/65 121/78 Pulse Ox 93 92 92 O2 Delivery Nasal Cannula Nasal Cannula Room Air O2 Flow Rate 4.0 4.0 10/02/16 10/02/16 10/02/16 12:00 13:00 14:00 Pulse 110 102 Resp 18 14 B/P 129/75 133/83 Pulse Ox 92 93 O2 Delivery Nasal Cannula Room Air Room Air O2 Flow Rate 4.0 Intake and Output 10/01/16 10/01/16 10/02/16 15:00 23:00 07:00 Intake Total 30 ml 1705 ml 498 ml Output Total 710 ml 665 ml Balance 30 ml 995 ml -167 ml NADINE ORR MD Oct 02, 2016 14:22
[2016-10-02] MEDS: INSULIN DETEMIR 300 UNITS/3 ML INSULN.PEN. SQ SCH (22:40)
[2016-10-03 02:48] VITALS: BP 113/68
[2016-10-03] MEDS: PIPERACILLIN/TAZOBACTAM 3.375 GM in IV NORMAL SALINE 50ML 50 ML IV SCH ×3 (05:57→17:34)
[2016-10-03 06:40] LABS: BASO % 0 % (0-3); EOS % 0 % (0-3); HEMATOCRIT 33.3 % (39.0-53.0); HEMOGLOBIN 11.1 g/dL (13.0-17.5); LYMPH # 2.3 x10^3/uL (1.0-4.8); LYMPH % 16 % (24-48); MEAN CORPUSCULAR HEMOGLOBIN 30 pg (25-35); MEAN CORPUSCULAR HGB CONC 33 g/dL (31-37); MEAN CORPUSCULAR VOLUME 90 fL (79-100); MONO % 5 % (0-9); NEUT % 78 % (31-73); PLATELET COUNT 162 x10^3/uL (140-400); RED CELL DISTRIBUTION WIDTH 14.7 % (11.5-14.5); WHITE BLOOD COUNT 14.2 x10^3/uL (4.0-11.0)
[2016-10-03 07:01] LABS: CALCIUM 8.3 mg/dL (8.5-10.1); CREATININE 0.7 mg/dL (0.7-1.3); GFR 107.7; POTASSIUM 3.5 mmol/L (3.5-5.1)
[2016-10-03 07:56] VITALS: BP 136/78
[2016-10-03] MEDS: INSULIN ASPART 300 UNITS/3 ML INSULN.PEN SQ SCH ×3 (08:00→17:40)
[2016-10-03] MEDS: METFORMIN 1,000 MG TABLET PO SCH (08:30)
[2016-10-03] MEDS: PANTOPRAZOLE IV PUSH 40 MG VIAL. IVP SCH (08:31)
[2016-10-03 10:36] VITALS: BP 141/83
[2016-10-03] MEDS: IV NORMAL SALINE 1000ML BAG 1,000 ML IV SCH (10:57)
[2016-10-03] MEDS: LEVOTHYROXINE SODIUM 25 MCG in IV NORMAL SALINE 50ML 5 ML IVP SCH (10:57)
--- NOTE | 2016-10-03 11:05 | PDOC ---
SURGICAL PROGRESS NOTE Subjective up to chair no c/o taking po Vital Signs Vital Signs Date Time Temp Pulse Resp B/P Pulse Ox O2 Delivery O2 Flow Rate FiO2 10/03/16 10:36 97.5 83 18 141/83 93 Room Air 97.5 10/02/16 12:00 4.0 I&O Intake and Output 10/03/16 07:00 Intake Total 100 ml Output Total 1880 ml Balance -1780 ml Intake Oral 100 ml Output Urine Total 1850 ml Drainage Total 30 ml PATIENT HAS A RIZO: No General: Alert, Cooperative, No acute distress Abdomen: Soft, Other (small amount of serosanguineous output in ABBY drain) Labs Laboratory Tests Test 10/01/16 11:32 10/01/16 17:09 10/01/16 20:20 10/01/16 21:00 Glucose (Fingerstick) 208mg/dL (70-99) 215mg/dL (70-99) 233mg/dL (70-99) Nasal Screen MRSA (PCR) Negative (Negative) Test 10/01/16 21:43 10/02/16 04:56 10/02/16 06:38 10/02/16 08:43 Glucose (Fingerstick) 246mg/dL (70-99) 274mg/dL (70-99) 262mg/dL (70-99) White Blood Count 16.7x10^3/uL (4.0-11.0) Red Blood Count 4.04x10^6/uL (4.30-5.70) Hemoglobin 11.9g/dL (13.0-17.5) Hematocrit 36.9% (39.0-53.0) Mean Corpuscular Volume 91fL (79-100) Mean Corpuscular Hemoglobin 30pg (25-35) Mean Corpuscular Hemoglobin Concent 32g/dL (31-37) Red Cell Distribution Width 14.6% (11.5-14.5) Platelet Count 177x10^3/uL (140-400) Neutrophils (%) (Auto) 89% (31-73) Lymphocytes (%) (Auto) 6% (24-48) Monocytes (%) (Auto) 6% (0-9) Eosinophils (%) (Auto) 0% (0-3) Basophils (%) (Auto) 0% (0-3) Neutrophils # (Auto) 14.8x10^3uL (1.8-7.7) Lymphocytes # (Auto) 0.9x10^3/uL (1.0-4.8) Monocytes # (Auto) 0.9x10^3/uL (0.0-1.1) Eosinophils # (Auto) 0.0x10^3/uL (0.0-0.7) Basophils # (Auto) 0.0x10^3/uL (0.0-0.2) Segmented Neutrophils % 87% (35-66) Band Neutrophils % 6% (0-9) Lymphocytes % 4% (24-48) Monocytes % 3% (0-10) Platelet Estimate Adequate (ADEQUATE) Sodium Level 140mmol/L (136-145) Potassium Level 3.9mmol/L (3.5-5.1) Chloride Level 106mmol/L (98-107) Carbon Dioxide Level 22mmol/L (21-32) Anion Gap 12 (6-14) Blood Urea Nitrogen 16mg/dL (8-26) Creatinine 0.9mg/dL (0.7-1.3) Estimated GFR (Cockcroft-Gault) 80.6 Glucose Level 313mg/dL (70-99) Calcium Level 8.1mg/dL (8.5-10.1) Test 10/02/16 11:20 10/02/16 12:37 10/02/16 17:20 10/02/16 20:46 Prothrombin Time 19.0SEC (11.7-14.0) Prothromb Time International Ratio 1.7 (0.8-1.1) Glucose (Fingerstick) 269mg/dL (70-99) 203mg/dL (70-99) 232mg/dL (70-99) Test 10/03/16 05:55 10/03/16 07:18 White Blood Count 14.2x10^3/uL (4.0-11.0) Red Blood Count 3.70x10^6/uL (4.30-5.70) Hemoglobin 11.1g/dL (13.0-17.5) Hematocrit 33.3% (39.0-53.0) Mean Corpuscular Volume 90fL (79-100) Mean Corpuscular Hemoglobin 30pg (25-35) Mean Corpuscular Hemoglobin Concent 33g/dL (31-37) Red Cell Distribution Width 14.7% (11.5-14.5) Platelet Count 162x10^3/uL (140-400) Neutrophils (%) (Auto) 78% (31-73) Lymphocytes (%) (Auto) 16% (24-48) Monocytes (%) (Auto) 5% (0-9) Eosinophils (%) (Auto) 0% (0-3) Basophils (%) (Auto) 0% (0-3) Neutrophils # (Auto) 11.1x10^3uL (1.8-7.7) Lymphocytes # (Auto) 2.3x10^3/uL (1.0-4.8) Monocytes # (Auto) 0.8x10^3/uL (0.0-1.1) Eosinophils # (Auto) 0.0x10^3/uL (0.0-0.7) Basophils # (Auto) 0.0x10^3/uL (0.0-0.2) Sodium Level 138mmol/L (136-145) Potassium Level 3.5mmol/L (3.5-5.1) Chloride Level 107mmol/L (98-107) Carbon Dioxide Level 24mmol/L (21-32) Anion Gap 7 (6-14) Blood Urea Nitrogen 17mg/dL (8-26) Creatinine 0.7mg/dL (0.7-1.3) Estimated GFR (Cockcroft-Gault) 107.7 Glucose Level 153mg/dL (70-99) Calcium Level 8.3mg/dL (8.5-10.1) Glucose (Fingerstick) 150mg/dL (70-99) Laboratory Tests Test 10/02/16 11:20 10/02/16 12:37 10/02/16 17:20 10/02/16 20:46 Prothrombin Time 19.0SEC (11.7-14.0) Prothromb Time International Ratio 1.7 (0.8-1.1) Glucose (Fingerstick) 269mg/dL (70-99) 203mg/dL (70-99) 232mg/dL (70-99) Test 10/03/16 05:55 10/03/16 07:18 White Blood Count 14.2x10^3/uL (4.0-11.0) Red Blood Count 3.70x10^6/uL (4.30-5.70) Hemoglobin 11.1g/dL (13.0-17.5) Hematocrit 33.3% (39.0-53.0) Mean Corpuscular Volume 90fL (79-100) Mean Corpuscular Hemoglobin 30pg (25-35) Mean Corpuscular Hemoglobin Concent 33g/dL (31-37) Red Cell Distribution Width 14.7% (11.5-14.5) Platelet Count 162x10^3/uL (140-400) Neutrophils (%) (Auto) 78% (31-73) Lymphocytes (%) (Auto) 16% (24-48) Monocytes (%) (Auto) 5% (0-9) Eosinophils (%) (Auto) 0% (0-3) Basophils (%) (Auto) 0% (0-3) Neutrophils # (Auto) 11.1x10^3uL (1.8-7.7) Lymphocytes # (Auto) 2.3x10^3/uL (1.0-4.8) Monocytes # (Auto) 0.8x10^3/uL (0.0-1.1) Eosinophils # (Auto) 0.0x10^3/uL (0.0-0.7) Basophils # (Auto) 0.0x10^3/uL (0.0-0.2) Sodium Level 138mmol/L (136-145) Potassium Level 3.5mmol/L (3.5-5.1) Chloride Level 107mmol/L (98-107) Carbon Dioxide Level 24mmol/L (21-32) Anion Gap 7 (6-14) Blood Urea Nitrogen 17mg/dL (8-26) Creatinine 0.7mg/dL (0.7-1.3) Estimated GFR (Cockcroft-Gault) 107.7 Glucose Level 153mg/dL (70-99) Calcium Level 8.3mg/dL (8.5-10.1) Glucose (Fingerstick) 150mg/dL (70-99) Problem List Problems Medical Problems: (1) Chest pain Status: Acute (2) SOB (shortness of breath) Status: Acute Assessment/Plan POD 2 l/s ofe for gangrenous cholecystitis Problems: TOBI CHAWLA MD Oct 03, 2016 11:05
--- NOTE | 2016-10-03 12:46 | PDOC ---
Infectious Disease Note Subjective Subjective c/o pain at drain site, otherwise feeling ok No BM or flatus ROS ROS GEN: Denies fevers, chills, sweats HEENT: Denies blurred vision, sore throat CV: Denies chest pain RESP: Denies shortness of air, cough GI: Denies n/v/d NEURO: Denies confusion, dizziness MSK: Denies weakness, joint pain/swelling Vital Sign Vital Signs Vital Signs Date Time Temp Pulse Resp B/P Pulse Ox O2 Delivery O2 Flow Rate FiO2 10/03/16 10:36 97.5 83 18 141/83 93 Room Air 97.5 10/02/16 12:00 4.0 Physical Exam PHYSICAL EXAM GENERAL: Alert, NAD, in chair HEENT: PERRL, clear NECK: Supple LUNGS: Clear HEART: S1S2 ABD: less distended, hypoactive BS, soft, nontender to light palpation. ABBY intact-sanguinous drainage EXT: No edema, no cyanosis MANAGEMENT EXPERT: Alert, oriented x 3, no focal neurologic deficit SKIN: No rash IV: ok Labs Lab Laboratory Tests Test 10/02/16 17:20 10/02/16 20:46 10/03/16 05:55 10/03/16 07:18 Glucose (Fingerstick) 203mg/dL (70-99) 232mg/dL (70-99) 150mg/dL (70-99) White Blood Count 14.2x10^3/uL (4.0-11.0) Red Blood Count 3.70x10^6/uL (4.30-5.70) Hemoglobin 11.1g/dL (13.0-17.5) Hematocrit 33.3% (39.0-53.0) Mean Corpuscular Volume 90fL (79-100) Mean Corpuscular Hemoglobin 30pg (25-35) Mean Corpuscular Hemoglobin Concent 33g/dL (31-37) Red Cell Distribution Width 14.7% (11.5-14.5) Platelet Count 162x10^3/uL (140-400) Neutrophils (%) (Auto) 78% (31-73) Lymphocytes (%) (Auto) 16% (24-48) Monocytes (%) (Auto) 5% (0-9) Eosinophils (%) (Auto) 0% (0-3) Basophils (%) (Auto) 0% (0-3) Neutrophils # (Auto) 11.1x10^3uL (1.8-7.7) Lymphocytes # (Auto) 2.3x10^3/uL (1.0-4.8) Monocytes # (Auto) 0.8x10^3/uL (0.0-1.1) Eosinophils # (Auto) 0.0x10^3/uL (0.0-0.7) Basophils # (Auto) 0.0x10^3/uL (0.0-0.2) Sodium Level 138mmol/L (136-145) Potassium Level 3.5mmol/L (3.5-5.1) Chloride Level 107mmol/L (98-107) Carbon Dioxide Level 24mmol/L (21-32) Anion Gap 7 (6-14) Blood Urea Nitrogen 17mg/dL (8-26) Creatinine 0.7mg/dL (0.7-1.3) Estimated GFR (Cockcroft-Gault) 107.7 Glucose Level 153mg/dL (70-99) Calcium Level 8.3mg/dL (8.5-10.1) Test 10/03/16 11:20 Glucose (Fingerstick) 197mg/dL (70-99) Objective Assessment Fever - better Leukocytosis - + post op -Steroids 10/01 Acute Encephalopathy- improved Acute Cholecystitis- gangrenous, s/p cholecystomy, 10/01 Clostridium on gram stain DM Plan Plan of Care Cont Zosyn F/u labs BC pending RHONDA DA SILVA MD Oct 03, 2016 12:46
--- NOTE | 2016-10-03 13:32 | PDOC ---
PROGRESS NOTES Chief Complaint Chief Complaint 1. s.p lap ofe for acute cholecystitis 10/01, gangreous 2. 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 Fevers resolved 4. SIRS no sepsis 5. Geriatric 6. 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 plan: 1. fu with sx, ID 2. on zosyn 3. ivf 4. metformin, on levemir 15u qhs, SSI, (home levemir 30u) 5. full liquid dvt ppx History of Present Illness History of Present Illness feels ok no BM + BS MILD ABD PAIN Vitals Vitals Vital Signs Date Time Temp Pulse Resp B/P Pulse Ox O2 Delivery O2 Flow Rate FiO2 10/03/16 10:36 97.5 83 18 141/83 93 Room Air 97.5 10/02/16 12:00 4.0 Physical Exam General: Alert, Cooperative, No acute distress Heart: Regular rate, Normal S1, Normal S2, Other (S3. Blowing 2/6 systolic murmur over apex ) Lungs: Clear Abdomen: Normal bowel sounds, Soft, Other (small amount of serosanguineous output in ABBY drain, MILD tenderness) Extremities: No clubbing, No cyanosis, No edema Labs LABS Laboratory Tests Test 10/02/16 17:20 10/02/16 20:46 10/03/16 05:55 10/03/16 07:18 Glucose (Fingerstick) 203mg/dL (70-99) 232mg/dL (70-99) 150mg/dL (70-99) White Blood Count 14.2x10^3/uL (4.0-11.0) Red Blood Count 3.70x10^6/uL (4.30-5.70) Hemoglobin 11.1g/dL (13.0-17.5) Hematocrit 33.3% (39.0-53.0) Mean Corpuscular Volume 90fL (79-100) Mean Corpuscular Hemoglobin 30pg (25-35) Mean Corpuscular Hemoglobin Concent 33g/dL (31-37) Red Cell Distribution Width 14.7% (11.5-14.5) Platelet Count 162x10^3/uL (140-400) Neutrophils (%) (Auto) 78% (31-73) Lymphocytes (%) (Auto) 16% (24-48) Monocytes (%) (Auto) 5% (0-9) Eosinophils (%) (Auto) 0% (0-3) Basophils (%) (Auto) 0% (0-3) Neutrophils # (Auto) 11.1x10^3uL (1.8-7.7) Lymphocytes # (Auto) 2.3x10^3/uL (1.0-4.8) Monocytes # (Auto) 0.8x10^3/uL (0.0-1.1) Eosinophils # (Auto) 0.0x10^3/uL (0.0-0.7) Basophils # (Auto) 0.0x10^3/uL (0.0-0.2) Sodium Level 138mmol/L (136-145) Potassium Level 3.5mmol/L (3.5-5.1) Chloride Level 107mmol/L (98-107) Carbon Dioxide Level 24mmol/L (21-32) Anion Gap 7 (6-14) Blood Urea Nitrogen 17mg/dL (8-26) Creatinine 0.7mg/dL (0.7-1.3) Estimated GFR (Cockcroft-Gault) 107.7 Glucose Level 153mg/dL (70-99) Calcium Level 8.3mg/dL (8.5-10.1) Test 10/03/16 11:20 Glucose (Fingerstick) 197mg/dL (70-99) Review of Systems Review of Systems no fever ,chills, sob or chest pain Assessment and Plan Assessmemt and Plan Problems Medical Problems: (1) Chest pain Status: Acute (2) SOB (shortness of breath) Status: Acute Problems: Comment Review of Relevant I have reviewed the following items olimpia (where applicable) has been applied. Labs Laboratory Tests Test 10/01/16 17:09 10/01/16 20:20 10/01/16 21:00 10/01/16 21:43 Glucose (Fingerstick) 215mg/dL (70-99) 233mg/dL (70-99) 246mg/dL (70-99) Nasal Screen MRSA (PCR) Negative (Negative) Test 10/02/16 04:56 10/02/16 06:38 10/02/16 08:43 10/02/16 11:20 Glucose (Fingerstick) 274mg/dL (70-99) 262mg/dL (70-99) White Blood Count 16.7x10^3/uL (4.0-11.0) Red Blood Count 4.04x10^6/uL (4.30-5.70) Hemoglobin 11.9g/dL (13.0-17.5) Hematocrit 36.9% (39.0-53.0) Mean Corpuscular Volume 91fL (79-100) Mean Corpuscular Hemoglobin 30pg (25-35) Mean Corpuscular Hemoglobin Concent 32g/dL (31-37) Red Cell Distribution Width 14.6% (11.5-14.5) Platelet Count 177x10^3/uL (140-400) Neutrophils (%) (Auto) 89% (31-73) Lymphocytes (%) (Auto) 6% (24-48) Monocytes (%) (Auto) 6% (0-9) Eosinophils (%) (Auto) 0% (0-3) Basophils (%) (Auto) 0% (0-3) Neutrophils # (Auto) 14.8x10^3uL (1.8-7.7) Lymphocytes # (Auto) 0.9x10^3/uL (1.0-4.8) Monocytes # (Auto) 0.9x10^3/uL (0.0-1.1) Eosinophils # (Auto) 0.0x10^3/uL (0.0-0.7) Basophils # (Auto) 0.0x10^3/uL (0.0-0.2) Segmented Neutrophils % 87% (35-66) Band Neutrophils % 6% (0-9) Lymphocytes % 4% (24-48) Monocytes % 3% (0-10) Platelet Estimate Adequate (ADEQUATE) Sodium Level 140mmol/L (136-145) Potassium Level 3.9mmol/L (3.5-5.1) Chloride Level 106mmol/L (98-107) Carbon Dioxide Level 22mmol/L (21-32) Anion Gap 12 (6-14) Blood Urea Nitrogen 16mg/dL (8-26) Creatinine 0.9mg/dL (0.7-1.3) Estimated GFR (Cockcroft-Gault) 80.6 Glucose Level 313mg/dL (70-99) Calcium Level 8.1mg/dL (8.5-10.1) Prothrombin Time 19.0SEC (11.7-14.0) Prothromb Time International Ratio 1.7 (0.8-1.1) Test 10/02/16 12:37 10/02/16 17:20 10/02/16 20:46 10/03/16 05:55 Glucose (Fingerstick) 269mg/dL (70-99) 203mg/dL (70-99) 232mg/dL (70-99) White Blood Count 14.2x10^3/uL (4.0-11.0) Red Blood Count 3.70x10^6/uL (4.30-5.70) Hemoglobin 11.1g/dL (13.0-17.5) Hematocrit 33.3% (39.0-53.0) Mean Corpuscular Volume 90fL (79-100) Mean Corpuscular Hemoglobin 30pg (25-35) Mean Corpuscular Hemoglobin Concent 33g/dL (31-37) Red Cell Distribution Width 14.7% (11.5-14.5) Platelet Count 162x10^3/uL (140-400) Neutrophils (%) (Auto) 78% (31-73) Lymphocytes (%) (Auto) 16% (24-48) Monocytes (%) (Auto) 5% (0-9) Eosinophils (%) (Auto) 0% (0-3) Basophils (%) (Auto) 0% (0-3) Neutrophils # (Auto) 11.1x10^3uL (1.8-7.7) Lymphocytes # (Auto) 2.3x10^3/uL (1.0-4.8) Monocytes # (Auto) 0.8x10^3/uL (0.0-1.1) Eosinophils # (Auto) 0.0x10^3/uL (0.0-0.7) Basophils # (Auto) 0.0x10^3/uL (0.0-0.2) Sodium Level 138mmol/L (136-145) Potassium Level 3.5mmol/L (3.5-5.1) Chloride Level 107mmol/L (98-107) Carbon Dioxide Level 24mmol/L (21-32) Anion Gap 7 (6-14) Blood Urea Nitrogen 17mg/dL (8-26) Creatinine 0.7mg/dL (0.7-1.3) Estimated GFR (Cockcroft-Gault) 107.7 Glucose Level 153mg/dL (70-99) Calcium Level 8.3mg/dL (8.5-10.1) Test 10/03/16 07:18 10/03/16 11:20 Glucose (Fingerstick) 150mg/dL (70-99) 197mg/dL (70-99) Laboratory Tests Test 10/02/16 17:20 10/02/16 20:46 10/03/16 05:55 10/03/16 07:18 Glucose (Fingerstick) 203mg/dL (70-99) 232mg/dL (70-99) 150mg/dL (70-99) White Blood Count 14.2x10^3/uL (4.0-11.0) Red Blood Count 3.70x10^6/uL (4.30-5.70) Hemoglobin 11.1g/dL (13.0-17.5) Hematocrit 33.3% (39.0-53.0) Mean Corpuscular Volume 90fL (79-100) Mean Corpuscular Hemoglobin 30pg (25-35) Mean Corpuscular Hemoglobin Concent 33g/dL (31-37) Red Cell Distribution Width 14.7% (11.5-14.5) Platelet Count 162x10^3/uL (140-400) Neutrophils (%) (Auto) 78% (31-73) Lymphocytes (%) (Auto) 16% (24-48) Monocytes (%) (Auto) 5% (0-9) Eosinophils (%) (Auto) 0% (0-3) Basophils (%) (Auto) 0% (0-3) Neutrophils # (Auto) 11.1x10^3uL (1.8-7.7) Lymphocytes # (Auto) 2.3x10^3/uL (1.0-4.8) Monocytes # (Auto) 0.8x10^3/uL (0.0-1.1) Eosinophils # (Auto) 0.0x10^3/uL (0.0-0.7) Basophils # (Auto) 0.0x10^3/uL (0.0-0.2) Sodium Level 138mmol/L (136-145) Potassium Level 3.5mmol/L (3.5-5.1) Chloride Level 107mmol/L (98-107) Carbon Dioxide Level 24mmol/L (21-32) Anion Gap 7 (6-14) Blood Urea Nitrogen 17mg/dL (8-26) Creatinine 0.7mg/dL (0.7-1.3) Estimated GFR (Cockcroft-Gault) 107.7 Glucose Level 153mg/dL (70-99) Calcium Level 8.3mg/dL (8.5-10.1) Test 10/03/16 11:20 Glucose (Fingerstick) 197mg/dL (70-99) Microbiology 10/01/16 Blood Culture - Preliminary, Resulted NO GROWTH AFTER 1 DAY 10/01/16 Anaerobic/Aerobic Culture, Resulted Pending 10/01/16 Anaerobic Culture Result 1 (CHIQUI), Resulted Pending 10/01/16 Aerobic Culture - Preliminary, Resulted 10/01/16 Aerobic Culture Result 1 (CHIQUI) - Preliminary, Resulted 10/01/16 Anaerobic/Aerobic Culture, Resulted Pending 10/01/16 Anaerobic Culture Result 1 (CHIQUI), Resulted Pending 10/01/16 Aerobic Culture - Preliminary, Resulted 10/01/16 Aerobic Culture Result 1 (CHIQUI) - Preliminary, Resulted Medications Current Medications Aspirin (Children'S Aspirin) 324 mg 1X ONCE PO Last administered on at 20:29; Start 09/30/16 at 20:45; Stop 09/30/16 at 20:46; Status DC Nitroglycerin (Nitrostat) 0.4 mg PRN Q5MIN PRN SL CP RATING > 1/10 Last administered on 09/30/16at 20:33; Start 09/30/16 at 20:30; Stop 09/30/16 at 23 :59; Status DC Morphine Sulfate 4 mg 1X ONCE IV Last administered on 09/30/16at 21:20; Start 09/30/16 at 21:15; Stop 09/30/16 at 21:16; Status DC Ondansetron HCl (Zofran) 4 mg PRN Q8HRS PRN IV NAUSEA/VOMITING; Start at 21:45; Stop 10/01/16 at 14:11; Status DC Morphine Sulfate 4 mg PRN Q2HR PRN IV PAIN Last administered on 10/01/16at 15: 05; Start 09/30/16 at 21:45; Stop 10/01/16 at 21:44; Status DC Acetaminophen (Tylenol) 650 mg PRN Q4HRS PRN PO FEVER Last administered on at 02:53; Start 09/30/16 at 21:45; Stop 10/01/16 at 14:11; Status DC Nitroglycerin (Nitrostat) 0.4 mg PRN Q5MIN PRN SL CHEST PAIN; Start 09/30/16 at 21:45; Stop 10/01/16 at 21:44; Status DC Insulin Aspart (Novolog) 0-7 UNITS TIDWMEALS SQ Last administered on at 08:57; Start 10/01/16 at 08:00; Stop 10/01/16 at 09:35; Status DC Dextrose 12.5 gm PRN Q15MIN PRN IV SEE COMMENTS; Start 09/30/16 at 21:45 Acetaminophen (Tylenol) 325 mg PRN Q6HRS PRN PO MILD PAIN / TEMP; Start at 09:30 Acetaminophen/ Hydrocodone Bitart (Lortab 5/325) 1 tab PRN Q6HRS PRN PO MODERATE TO SEVERE PAIN Last administered on 10/02/16at 21:15; Start 10/01/16 at 09:30 Hydralazine HCl (Apresoline) 10 mg PRN Q4HRS PRN IVP ELEVATED BP, SEE COMMENTS ; Start 10/01/16 at 09:30 Ondansetron HCl (Zofran) 4 mg PRN Q8HRS PRN IV NAUSEA/VOMITING 1ST CHOICE; Start 10/01/16 at 09:30; Stop 10/02/16 at 07:58; Status DC Albuterol Sulfate (Ventolin Neb Soln) 2.5 mg PRN Q4HRS PRN NEB SHORTNESS OF BREATH; Start 10/01/16 at 09:30 Levothyroxine Sodium (Synthroid) 50 mcg DAILY07 PO ; Start 10/01/16 at 10:00; Stop 10/02/16 at 09:47; Status DC Metformin HCl (Glucophage) 1,000 mg [id number] PO Last administered on 08:30; Start 10/01/16 at 10:00 Insulin Detemir (Levemir) 10 units QHS SQ Last administered on 10/01/16at 21:57 ; Start 10/01/16 at 21:00; Stop 10/02/16 at 07:57; Status DC Insulin Aspart (Novolog) 0-9 UNITS TIDWMEALS SQ Last administered on 10/03/16 12:12; Start 10/01/16 at 12:00 Dextrose 12.5 gm 12.5 gm PRN Q15MIN PRN IV SEE COMMENTS; Start 10/01/16 at 09: 30; Status UNV Sodium Chloride (Iv Sodium Chloride 0.9% 1000ml Bag) 1,000 ml @ 75 mls/hr 1X ONCE IV ; Start 10/01/16 at 11:45; Stop 10/01/16 at 14:11; Status DC Pantoprazole Sodium (Protonix) 40 mg DAILYAC PO ; Start 10/01/16 at 12:00; Stop 10/02/16 at 09:47; Status DC Iohexol 75 ml 75 ml 1X ONCE IV Last administered on 10/01/16at 12:21; Start 10/01/16 at 12:15; Stop 10/01/16 at 12:16; Status DC Sodium Chloride 1,000 ml @ 75 mls/hr [id number] IV Last administered on 10/03/16 10:57; Start 10/01/16 at 14:15 Piperacillin Sod/ Tazobactam Sod/ Sodium Chloride (Zosyn/Iv Sodium Chloride 0.9 % 50ml) 50 ml @ 100 mls/hr Q6HRS IV Last administered on 10/03/16 12:06; Start 10/01/16 at 18:00 Fentanyl Citrate (Fentanyl 2ml Vial) 50 mcg PRN Q5MIN PRN IV Acute Pain; Start 10/01/16 at 16:00; Stop 10/01/16 at 23:00; Status DC Morphine Sulfate 4 mg PRN Q10MIN PRN IV Moderate Pain; Start 10/01/16 at 16:00 ; Stop 10/01/16 at 23:00; Status DC Hydromorphone HCl (Dilaudid) 0.4 mg PRN Q10MIN PRN IV Moderate to severe pain; Start 10/01/16 at 16:00; Stop 10/01/16 at 23:00; Status DC Prochlorperazine Edisylate (Compazine) 5 mg PRN Q6HRS PRN IV Nausea/Vomiting, 1st Choice; Start 10/01/16 at 16:00; Stop 10/01/16 at 23:00; Status DC Diphenhydramine HCl (Benadryl) 12.5 mg PRN Q2HR PRN IV ITCHING; Start at 16:00; Stop 10/01/16 at 23:00; Status DC Midazolam HCl (Versed) 2 mg PRN 1X PRN IV PRIOR TO PROCEDURE; Start 10/01/16 at 16:00; Stop 10/01/16 at 23:00; Status DC Midazolam HCl (Versed) 1 mg PRN 1X PRN IV PRIOR TO PROCEDURE; Start 10/01/16 at 16:00; Stop 10/01/16 at 23:00; Status DC Fentanyl Citrate (Fentanyl 2ml Vial) 25 mcg PRN Q5MIN PRN IV X 2 DOSES FOR PAIN ; Start 10/01/16 at 16:00; Stop 10/01/16 at 23:00; Status DC Fentanyl Citrate 50 mcg 50 mcg PRN Q5MIN PRN IV X 2 DOSES FOR PAIN; Start at 16:00; Stop 10/01/16 at 23:00; Status DC Lactated Ringer's (Iv Lactated Ringers) 1,000 ml @ 125 mls/hr Q8H IV ; Start 10/01/16 at 15:49; Stop 10/01/16 at 20:43; Status DC Lidocaine HCl 2 ml 1X PRN PRN ID IV START; Start 10/01/16 at 16:00; Stop at 23:00; Status DC Cellulose 1 each STK-MED ONCE .ROUTE Last administered on 10/01/16at 19:19; Start 10/01/16 at 16:09; Stop 10/01/16 at 16:10; Status DC Bupivacaine HCl/ Epinephrine Bitart (Marcaine-Epi 0.5%-1:[id number]) 50 ml STK-MED ONCE .ROUTE Last administered on 10/01/16at 18:04; Start 10/01/16 at 16:10; Stop 10/01/16 at 16:11; Status DC Glucagon (Glucagen) 1 mg STK-MED ONCE .ROUTE ; Start 10/01/16 at 16:10; Stop 10/01/16 at 16:11; Status DC Iohexol 50 ml 50 ml STK-MED ONCE .ROUTE Last administered on 10/01/16at 18:04; Start 10/01/16 at 16:10; Stop 10/01/16 at 16:11; Status DC Acetaminophen (Ofirmev) 100 ml @ 400 mls/hr 1X PACU PRN IV FEVER Last administered on 10/01/16at 17:37; Start 10/01/16 at 17:30; Stop 10/01/16 at 23 :00; Status DC Rocuronium [place] (Zemuron) 50 mg STK-MED ONCE .ROUTE ; Start 10/01/16 at 17: 54; Stop 10/01/16 at 17:55; Status DC Lidocaine HCl 100 mg STK-MED ONCE .ROUTE ; Start 10/01/16 at 17:54; Stop 10/01 at 17:55; Status DC Fentanyl Citrate 100 mcg 100 mcg STK-MED ONCE .ROUTE ; Start 10/01/16 at 17:54 ; Stop 10/01/16 at 17:55; Status DC Propofol (Diprivan) 20 ml @ As Directed STK-MED ONCE IV ; Start 10/01/16 at 17: 58; Stop 10/01/16 at 17:59; Status DC Dexamethasone Sodium Phosphate (Decadron) 20 mg STK-MED ONCE .ROUTE ; Start at 18:20; Stop 10/01/16 at 18:21; Status DC Desflurane (Suprane) 30 ml STK-MED ONCE IH ; Start 10/01/16 at 18:20; Stop at 18:21; Status DC Esmolol HCl (Brevibloc) 100 mg STK-MED ONCE IV ; Start 10/01/16 at 18:55; Stop 10/01/16 at 18:56; Status DC Fentanyl Citrate (Fentanyl 2ml Vial) 100 mcg STK-MED ONCE .ROUTE ; Start at 19:35; Stop 10/01/16 at 19:36; Status DC Insulin Detemir (Levemir) 15 units QHS SQ Last administered on 10/02/16at 22:40 ; Start 10/02/16 at 21:00 Ondansetron HCl (Zofran) 4 mg PRN Q6HRS PRN IV NAUSEA/VOMITING 1ST CHOICE; Start 10/02/16 at 09:30 Pantoprazole Sodium 40 mg 40 mg DAILYAC IVP Last administered on 10/03/16 08:31 ; Start 10/02/16 at 09:45 Levothyroxine Sodium/Sodium Chloride (Synthroid/Iv Sodium Chloride 0.9% 50ml) 5 ml @ 100 mls/hr DAILY IVP Last administered on 10/03/16 10:57; Start 10/02/16 at 09:45 Morphine Sulfate 2 mg PRN Q2HR PRN IV PAIN Last administered on 10/02/16at 10: 23; Start 10/02/16 at 10:15 Active Scripts Active Reported Metformin Hcl 1,000 Mg Tablet Synthroid (Levothyroxine Sodium) 50 Mcg Tablet Lantus Solostar (Insulin Glargine,Hum.rec.anlog) 100 Unit/1 Ml Insuln.pen Novolog Flexpen (Insulin Aspart) 100 Unit/1 Ml Insuln.pen Vitals/I & O Vital Sign - Last 24 Hours 10/02/16 10/02/16 10/02/16 10/02/16 14:00 16:23 19:00 21:15 Temp 97.9 98.4 97.9 98.4 Pulse 102 103 99 Resp 14 21 18 20 B/P 133/83 136/71 133/81 Pulse Ox 93 92 92 96 O2 Delivery Room Air Room Air Room Air Room Air 10/02/16 10/02/16 10/03/16 10/03/16 22:15 22:55 00:17 02:48 Temp 98.1 97.7 98.1 97.7 Pulse 92 83 Resp 20 18 18 B/P 114/65 113/68 Pulse Ox 96 93 91 O2 Delivery Room Air Room Air Room Air Room Air 10/03/16 10/03/16 10/03/16 07:56 08:30 10:36 Temp 96.1 97.5 96.1 97.5 Pulse 83 83 Resp 18 18 B/P 136/78 141/83 Pulse Ox 92 93 O2 Delivery Room Air Room Air Room Air Intake and Output 12/10/02/16 10/03/16 15:00 23:00 07:00 Intake Total 0 ml 100 ml Output Total 350 ml 0 ml 1530 ml Balance -350 ml 0 ml -1430 ml REGGIE GONZÁLES MD Oct 03, 2016 13:32
--- NOTE | 2016-10-03 14:29 | PDOC ---
PROGRESS NOTES Assessment Problems Medical Problems: (1) Chest pain Status: Acute (2) SOB (shortness of breath) Status: Acute Metabolic encephalopathy, perhaps he had some sepsis from the cholecystitis. He is currently neurologically intact Diabetic peripheral neuropathy No evidence of stroke, seizure, or central nervous system infection Mild essential tremor Plan Rehab Objective Vital Signs Date Time Temp Pulse Resp B/P Pulse Ox O2 Delivery O2 Flow Rate FiO2 10/03/16 10:36 97.5 83 18 141/83 93 Room Air 97.5 10/02/16 12:00 4.0 Intake and Output 10/03/16 07:00 Intake Total 100 ml Output Total 1880 ml Balance -1780 ml Intake Oral 100 ml Output Urine Total 1850 ml Drainage Total 30 ml PHYSICAL EXAM Alert. Oriented to time, place and person. PERRL. EOMI. CN: no focal findings. Muscle tone: normal. Muscle strength: 5/5 DTR: 1+ Plantar reflex: flexor Gait: Takes a few steps, he is apraxic Sensory exam: Stocking loss. Mild postural tremor, otherwise no cerebellar signs elicited. Review of Relevant I have reviewed the following items olimpia (where applicable) has been applied. Labs Laboratory Tests Test 10/01/16 17:09 10/01/16 20:20 10/01/16 21:00 10/01/16 21:43 Glucose (Fingerstick) 215mg/dL (70-99) 233mg/dL (70-99) 246mg/dL (70-99) Nasal Screen MRSA (PCR) Negative (Negative) Test 10/02/16 04:56 10/02/16 06:38 10/02/16 08:43 10/02/16 11:20 Glucose (Fingerstick) 274mg/dL (70-99) 262mg/dL (70-99) White Blood Count 16.7x10^3/uL (4.0-11.0) Red Blood Count 4.04x10^6/uL (4.30-5.70) Hemoglobin 11.9g/dL (13.0-17.5) Hematocrit 36.9% (39.0-53.0) Mean Corpuscular Volume 91fL (79-100) Mean Corpuscular Hemoglobin 30pg (25-35) Mean Corpuscular Hemoglobin Concent 32g/dL (31-37) Red Cell Distribution Width 14.6% (11.5-14.5) Platelet Count 177x10^3/uL (140-400) Neutrophils (%) (Auto) 89% (31-73) Lymphocytes (%) (Auto) 6% (24-48) Monocytes (%) (Auto) 6% (0-9) Eosinophils (%) (Auto) 0% (0-3) Basophils (%) (Auto) 0% (0-3) Neutrophils # (Auto) 14.8x10^3uL (1.8-7.7) Lymphocytes # (Auto) 0.9x10^3/uL (1.0-4.8) Monocytes # (Auto) 0.9x10^3/uL (0.0-1.1) Eosinophils # (Auto) 0.0x10^3/uL (0.0-0.7) Basophils # (Auto) 0.0x10^3/uL (0.0-0.2) Segmented Neutrophils % 87% (35-66) Band Neutrophils % 6% (0-9) Lymphocytes % 4% (24-48) Monocytes % 3% (0-10) Platelet Estimate Adequate (ADEQUATE) Sodium Level 140mmol/L (136-145) Potassium Level 3.9mmol/L (3.5-5.1) Chloride Level 106mmol/L (98-107) Carbon Dioxide Level 22mmol/L (21-32) Anion Gap 12 (6-14) Blood Urea Nitrogen 16mg/dL (8-26) Creatinine 0.9mg/dL (0.7-1.3) Estimated GFR (Cockcroft-Gault) 80.6 Glucose Level 313mg/dL (70-99) Calcium Level 8.1mg/dL (8.5-10.1) Prothrombin Time 19.0SEC (11.7-14.0) Prothromb Time International Ratio 1.7 (0.8-1.1) Test 10/02/16 12:37 10/02/16 17:20 10/02/16 20:46 10/03/16 05:55 Glucose (Fingerstick) 269mg/dL (70-99) 203mg/dL (70-99) 232mg/dL (70-99) White Blood Count 14.2x10^3/uL (4.0-11.0) Red Blood Count 3.70x10^6/uL (4.30-5.70) Hemoglobin 11.1g/dL (13.0-17.5) Hematocrit 33.3% (39.0-53.0) Mean Corpuscular Volume 90fL (79-100) Mean Corpuscular Hemoglobin 30pg (25-35) Mean Corpuscular Hemoglobin Concent 33g/dL (31-37) Red Cell Distribution Width 14.7% (11.5-14.5) Platelet Count 162x10^3/uL (140-400) Neutrophils (%) (Auto) 78% (31-73) Lymphocytes (%) (Auto) 16% (24-48) Monocytes (%) (Auto) 5% (0-9) Eosinophils (%) (Auto) 0% (0-3) Basophils (%) (Auto) 0% (0-3) Neutrophils # (Auto) 11.1x10^3uL (1.8-7.7) Lymphocytes # (Auto) 2.3x10^3/uL (1.0-4.8) Monocytes # (Auto) 0.8x10^3/uL (0.0-1.1) Eosinophils # (Auto) 0.0x10^3/uL (0.0-0.7) Basophils # (Auto) 0.0x10^3/uL (0.0-0.2) Sodium Level 138mmol/L (136-145) Potassium Level 3.5mmol/L (3.5-5.1) Chloride Level 107mmol/L (98-107) Carbon Dioxide Level 24mmol/L (21-32) Anion Gap 7 (6-14) Blood Urea Nitrogen 17mg/dL (8-26) Creatinine 0.7mg/dL (0.7-1.3) Estimated GFR (Cockcroft-Gault) 107.7 Glucose Level 153mg/dL (70-99) Calcium Level 8.3mg/dL (8.5-10.1) Test 10/03/16 07:18 10/03/16 11:20 Glucose (Fingerstick) 150mg/dL (70-99) 197mg/dL (70-99) Laboratory Tests Test 10/02/16 17:20 10/02/16 20:46 10/03/16 05:55 10/03/16 07:18 Glucose (Fingerstick) 203mg/dL (70-99) 232mg/dL (70-99) 150mg/dL (70-99) White Blood Count 14.2x10^3/uL (4.0-11.0) Red Blood Count 3.70x10^6/uL (4.30-5.70) Hemoglobin 11.1g/dL (13.0-17.5) Hematocrit 33.3% (39.0-53.0) Mean Corpuscular Volume 90fL (79-100) Mean Corpuscular Hemoglobin 30pg (25-35) Mean Corpuscular Hemoglobin Concent 33g/dL (31-37) Red Cell Distribution Width 14.7% (11.5-14.5) Platelet Count 162x10^3/uL (140-400) Neutrophils (%) (Auto) 78% (31-73) Lymphocytes (%) (Auto) 16% (24-48) Monocytes (%) (Auto) 5% (0-9) Eosinophils (%) (Auto) 0% (0-3) Basophils (%) (Auto) 0% (0-3) Neutrophils # (Auto) 11.1x10^3uL (1.8-7.7) Lymphocytes # (Auto) 2.3x10^3/uL (1.0-4.8) Monocytes # (Auto) 0.8x10^3/uL (0.0-1.1) Eosinophils # (Auto) 0.0x10^3/uL (0.0-0.7) Basophils # (Auto) 0.0x10^3/uL (0.0-0.2) Sodium Level 138mmol/L (136-145) Potassium Level 3.5mmol/L (3.5-5.1) Chloride Level 107mmol/L (98-107) Carbon Dioxide Level 24mmol/L (21-32) Anion Gap 7 (6-14) Blood Urea Nitrogen 17mg/dL (8-26) Creatinine 0.7mg/dL (0.7-1.3) Estimated GFR (Cockcroft-Gault) 107.7 Glucose Level 153mg/dL (70-99) Calcium Level 8.3mg/dL (8.5-10.1) Test 10/03/16 11:20 Glucose (Fingerstick) 197mg/dL (70-99) Microbiology 10/01/16 Blood Culture - Preliminary, Resulted NO GROWTH AFTER 1 DAY 10/01/16 Anaerobic/Aerobic Culture, Resulted Pending 10/01/16 Anaerobic Culture Result 1 (CHIQUI), Resulted Pending 10/01/16 Aerobic Culture - Preliminary, Resulted 10/01/16 Aerobic Culture Result 1 (CHIQUI) - Preliminary, Resulted 10/01/16 Anaerobic/Aerobic Culture, Resulted Pending 10/01/16 Anaerobic Culture Result 1 (CHIQUI), Resulted Pending 10/01/16 Aerobic Culture - Preliminary, Resulted 10/01/16 Aerobic Culture Result 1 (CHIQUI) - Preliminary, Resulted Medications Current Medications Aspirin (Children'S Aspirin) 324 mg 1X ONCE PO Last administered on at 20:29; Start 09/30/16 at 20:45; Stop 09/30/16 at 20:46; Status DC Nitroglycerin (Nitrostat) 0.4 mg PRN Q5MIN PRN SL CP RATING > 1/10 Last administered on 09/30/16at 20:33; Start 09/30/16 at 20:30; Stop 09/30/16 at 23 :59; Status DC Morphine Sulfate 4 mg 1X ONCE IV Last administered on 09/30/16at 21:20; Start 09/30/16 at 21:15; Stop 09/30/16 at 21:16; Status DC Ondansetron HCl (Zofran) 4 mg PRN Q8HRS PRN IV NAUSEA/VOMITING; Start at 21:45; Stop 10/01/16 at 14:11; Status DC Morphine Sulfate 4 mg PRN Q2HR PRN IV PAIN Last administered on 10/01/16at 15: 05; Start 09/30/16 at 21:45; Stop 10/01/16 at 21:44; Status DC Acetaminophen (Tylenol) 650 mg PRN Q4HRS PRN PO FEVER Last administered on at 02:53; Start 09/30/16 at 21:45; Stop 10/01/16 at 14:11; Status DC Nitroglycerin (Nitrostat) 0.4 mg PRN Q5MIN PRN SL CHEST PAIN; Start 09/30/16 at 21:45; Stop 10/01/16 at 21:44; Status DC Insulin Aspart (Novolog) 0-7 UNITS TIDWMEALS SQ Last administered on at 08:57; Start 10/01/16 at 08:00; Stop 10/01/16 at 09:35; Status DC Dextrose 12.5 gm PRN Q15MIN PRN IV SEE COMMENTS; Start 09/30/16 at 21:45 Acetaminophen (Tylenol) 325 mg PRN Q6HRS PRN PO MILD PAIN / TEMP; Start at 09:30 Acetaminophen/ Hydrocodone Bitart (Lortab 5/325) 1 tab PRN Q6HRS PRN PO MODERATE TO SEVERE PAIN Last administered on 10/02/16at 21:15; Start 10/01/16 at 09:30 Hydralazine HCl (Apresoline) 10 mg PRN Q4HRS PRN IVP ELEVATED BP, SEE COMMENTS ; Start 10/01/16 at 09:30 Ondansetron HCl (Zofran) 4 mg PRN Q8HRS PRN IV NAUSEA/VOMITING 1ST CHOICE; Start 10/01/16 at 09:30; Stop 10/02/16 at 07:58; Status DC Albuterol Sulfate (Ventolin Neb Soln) 2.5 mg PRN Q4HRS PRN NEB SHORTNESS OF BREATH; Start 10/01/16 at 09:30 Levothyroxine Sodium (Synthroid) 50 mcg DAILY07 PO ; Start 10/01/16 at 10:00; Stop 10/02/16 at 09:47; Status DC Metformin HCl (Glucophage) 1,000 mg [id number] PO Last administered on 08:30; Start 10/01/16 at 10:00 Insulin Detemir (Levemir) 10 units QHS SQ Last administered on 10/01/16at 21:57 ; Start 10/01/16 at 21:00; Stop 10/02/16 at 07:57; Status DC Insulin Aspart (Novolog) 0-9 UNITS TIDWMEALS SQ Last administered on 10/03/16 12:12; Start 10/01/16 at 12:00 Dextrose 12.5 gm 12.5 gm PRN Q15MIN PRN IV SEE COMMENTS; Start 10/01/16 at 09: 30; Status UNV Sodium Chloride (Iv Sodium Chloride 0.9% 1000ml Bag) 1,000 ml @ 75 mls/hr 1X ONCE IV ; Start 10/01/16 at 11:45; Stop 10/01/16 at 14:11; Status DC Pantoprazole Sodium (Protonix) 40 mg DAILYAC PO ; Start 10/01/16 at 12:00; Stop 10/02/16 at 09:47; Status DC Iohexol 75 ml 75 ml 1X ONCE IV Last administered on 10/01/16at 12:21; Start 10/01/16 at 12:15; Stop 10/01/16 at 12:16; Status DC Sodium Chloride 1,000 ml @ 75 mls/hr [id number] IV Last administered on 10/03/16 10:57; Start 10/01/16 at 14:15 Piperacillin Sod/ Tazobactam Sod/ Sodium Chloride (Zosyn/Iv Sodium Chloride 0.9 % 50ml) 50 ml @ 100 mls/hr Q6HRS IV Last administered on 10/03/16 12:06; Start 10/01/16 at 18:00 Fentanyl Citrate (Fentanyl 2ml Vial) 50 mcg PRN Q5MIN PRN IV Acute Pain; Start 10/01/16 at 16:00; Stop 10/01/16 at 23:00; Status DC Morphine Sulfate 4 mg PRN Q10MIN PRN IV Moderate Pain; Start 10/01/16 at 16:00 ; Stop 10/01/16 at 23:00; Status DC Hydromorphone HCl (Dilaudid) 0.4 mg PRN Q10MIN PRN IV Moderate to severe pain; Start 10/01/16 at 16:00; Stop 10/01/16 at 23:00; Status DC Prochlorperazine Edisylate (Compazine) 5 mg PRN Q6HRS PRN IV Nausea/Vomiting, 1st Choice; Start 10/01/16 at 16:00; Stop 10/01/16 at 23:00; Status DC Diphenhydramine HCl (Benadryl) 12.5 mg PRN Q2HR PRN IV ITCHING; Start at 16:00; Stop 10/01/16 at 23:00; Status DC Midazolam HCl (Versed) 2 mg PRN 1X PRN IV PRIOR TO PROCEDURE; Start 10/01/16 at 16:00; Stop 10/01/16 at 23:00; Status DC Midazolam HCl (Versed) 1 mg PRN 1X PRN IV PRIOR TO PROCEDURE; Start 10/01/16 at 16:00; Stop 10/01/16 at 23:00; Status DC Fentanyl Citrate (Fentanyl 2ml Vial) 25 mcg PRN Q5MIN PRN IV X 2 DOSES FOR PAIN ; Start 10/01/16 at 16:00; Stop 10/01/16 at 23:00; Status DC Fentanyl Citrate 50 mcg 50 mcg PRN Q5MIN PRN IV X 2 DOSES FOR PAIN; Start at 16:00; Stop 10/01/16 at 23:00; Status DC Lactated Ringer's (Iv Lactated Ringers) 1,000 ml @ 125 mls/hr Q8H IV ; Start 10/01/16 at 15:49; Stop 10/01/16 at 20:43; Status DC Lidocaine HCl 2 ml 1X PRN PRN ID IV START; Start 10/01/16 at 16:00; Stop at 23:00; Status DC Cellulose 1 each STK-MED ONCE .ROUTE Last administered on 10/01/16at 19:19; Start 10/01/16 at 16:09; Stop 10/01/16 at 16:10; Status DC Bupivacaine HCl/ Epinephrine Bitart (Marcaine-Epi 0.5%-1:[id number]) 50 ml STK-MED ONCE .ROUTE Last administered on 10/01/16at 18:04; Start 10/01/16 at 16:10; Stop 10/01/16 at 16:11; Status DC Glucagon (Glucagen) 1 mg STK-MED ONCE .ROUTE ; Start 10/01/16 at 16:10; Stop 10/01/16 at 16:11; Status DC Iohexol 50 ml 50 ml STK-MED ONCE .ROUTE Last administered on 10/01/16at 18:04; Start 10/01/16 at 16:10; Stop 10/01/16 at 16:11; Status DC Acetaminophen (Ofirmev) 100 ml @ 400 mls/hr 1X PACU PRN IV FEVER Last administered on 10/01/16at 17:37; Start 10/01/16 at 17:30; Stop 10/01/16 at 23 :00; Status DC Rocuronium [place] (Zemuron) 50 mg STK-MED ONCE .ROUTE ; Start 10/01/16 at 17: 54; Stop 10/01/16 at 17:55; Status DC Lidocaine HCl 100 mg STK-MED ONCE .ROUTE ; Start 10/01/16 at 17:54; Stop 10/01 at 17:55; Status DC Fentanyl Citrate 100 mcg 100 mcg STK-MED ONCE .ROUTE ; Start 10/01/16 at 17:54 ; Stop 10/01/16 at 17:55; Status DC Propofol (Diprivan) 20 ml @ As Directed STK-MED ONCE IV ; Start 10/01/16 at 17: 58; Stop 10/01/16 at 17:59; Status DC Dexamethasone Sodium Phosphate (Decadron) 20 mg STK-MED ONCE .ROUTE ; Start at 18:20; Stop 10/01/16 at 18:21; Status DC Desflurane (Suprane) 30 ml STK-MED ONCE IH ; Start 10/01/16 at 18:20; Stop at 18:21; Status DC Esmolol HCl (Brevibloc) 100 mg STK-MED ONCE IV ; Start 10/01/16 at 18:55; Stop 10/01/16 at 18:56; Status DC Fentanyl Citrate (Fentanyl 2ml Vial) 100 mcg STK-MED ONCE .ROUTE ; Start at 19:35; Stop 10/01/16 at 19:36; Status DC Insulin Detemir (Levemir) 15 units QHS SQ Last administered on 10/02/16at 22:40 ; Start 10/02/16 at 21:00 Ondansetron HCl (Zofran) 4 mg PRN Q6HRS PRN IV NAUSEA/VOMITING 1ST CHOICE; Start 10/02/16 at 09:30 Pantoprazole Sodium 40 mg 40 mg DAILYAC IVP Last administered on 10/03/16 08:31 ; Start 10/02/16 at 09:45 Levothyroxine Sodium/Sodium Chloride (Synthroid/Iv Sodium Chloride 0.9% 50ml) 5 ml @ 100 mls/hr DAILY IVP Last administered on 1/1/17at 10:57; Start 10/02/16 at 09:45 Morphine Sulfate 2 mg PRN Q2HR PRN IV PAIN Last administered on 10/02/16at 10: 23; Start 10/02/16 at 10:15 Enoxaparin Sodium (Lovenox 40mg Syringe) 40 mg Q24H SQ ; Start 10/03/16 at 14:00 Active Scripts Active Reported Metformin Hcl 1,000 Mg Tablet Synthroid (Levothyroxine Sodium) 50 Mcg Tablet Lantus Solostar (Insulin Glargine,Hum.rec.anlog) 100 Unit/1 Ml Insuln.pen Novolog Flexpen (Insulin Aspart) 100 Unit/1 Ml Insuln.pen Vitals/I & O Vital Sign - Last 24 Hours 10/02/16 10/02/16 10/02/16 10/02/16 16:23 19:00 21:15 22:15 Temp 97.9 98.4 97.9 98.4 Pulse 103 99 Resp 21 18 20 20 B/P 136/71 133/81 Pulse Ox 92 92 96 96 O2 Delivery Room Air Room Air Room Air Room Air 10/02/16 10/03/16 10/03/16 10/03/16 22:55 00:17 02:48 07:56 Temp 98.1 97.7 96.1 98.1 97.7 96.1 Pulse 92 83 83 Resp 18 18 18 B/P 114/65 113/68 136/78 Pulse Ox 93 91 92 O2 Delivery Room Air Room Air Room Air Room Air 10/03/16 10/03/16 08:30 10:36 Temp 97.5 97.5 Pulse 83 Resp 18 B/P 141/83 Pulse Ox 93 O2 Delivery Room Air Room Air Intake and Output 10/02/16 10/02/16 10/03/16 15:00 23:00 07:00 Intake Total 0 ml 100 ml Output Total 350 ml 0 ml 1530 ml Balance -350 ml 0 ml -1430 ml OTF LOYOLA MD Oct 03, 2016 14:29
--- NOTE | 2016-10-03 15:03 | OP ---
DATE OF SURGERY: 10/01/2016 PREOPERATIVE DIAGNOSIS: Acute cholecystitis. POSTOPERATIVE DIAGNOSIS: Acute cholecystitis with gangrenous cholecystitis. PROCEDURE: Laparoscopic cholecystectomy. SURGEON: Gorge Chawla M.D. ANESTHESIA: General endotracheal. ESTIMATED BLOOD LOSS: 100 mL. IV FLUIDS: 1600. URINE OUTPUT: 100. INDICATIONS: The patient is an 81-year-old diabetic who came in with altered mental status and CT suggested emphysematous cholecystitis. He is brought for cholecystectomy. OPERATIVE FINDINGS: He had a gangrenous gallbladder with a moderate amount of fluid in the right upper quadrant. The liver showed some chronic fibrotic changes. Visual inspection of the remainder of the abdomen failed to reveal obvious abnormalities. OPERATIVE REPORT: The patient brought to the operating suite, given a general endotracheal anesthetic. Barker catheter placement and drainage and the abdomen prepped and draped in usual sterile fashion. A supraumbilical incision was made and a 5 mm Visiport placed, taking care to avoid injury to abdominal contents. Pneumoperitoneum was established. Camera inserted. Inspection carried out with results as noted above. With the table in reverse Trendelenburg rolled to the left, the epigastric, midclavicular, and lateral ports were placed under direct vision. Aspirating needle was used to evacuate approximately 40 mL of turbid bile. This allowed grasping of the fundus of the gallbladder to retract it superolaterally. There were marked edematous changes in the wall along with the ischemic process. We were able to carefully identify the cystic duct and cystic artery. Attempts at cholangiography were unsuccessful due to the small lumen on the cystic duct in the midst of the edematous change around it. As such, the cystic duct was carefully clipped and divided, taking care to avoid injury of the common duct. The cystic artery was clipped and divided. The gallbladder was then freed from the bed with cautery and blunt dissection, and placed in an EndoCatch bag. Hemostasis in the fossa obtained with cautery, Surgicel, and FloSeal. A 19-Armenian round Sean drain was brought through the epigastric port out the lateral ports, sewn to the skin with silk stitch and left in the subhepatic space for postoperative drainage. Table returned to level. Gallbladder delivered through the epigastric incision. Epigastric incision closed with interrupted 0 Vicryl suture. Intraabdominal pressure decreased to 6 cm of water. No active bleeding was appreciated from the epigastric closure site, gallbladder fossa, midclavicular port site after its removal, or from the drainage site. The abdomen was decompressed, camera slowly removed, no bleeding seen. Skin incisions closed with subcuticular 4-0 Monocryl. Steri-Strips and sterile dressings applied. The patient was awakened from his anesthetic and taken to the recovery room in satisfactory condition. GORGE CHAWLA MD DR: ANNI/tammy JOB#: [id number] / [id number]
[2016-10-03 15:27] VITALS: BP 135/78
--- NOTE | 2016-10-03 15:52 | PDOC ---
PROGRESS NOTES Subjective Subjective Patient is feeling better today. No pain at this time. Objective Objective Vital Signs Date Time Temp Pulse Resp B/P Pulse Ox O2 Delivery O2 Flow Rate FiO2 10/03/16 15:27 97.7 81 18 135/78 93 Room Air 97.7 10/02/16 12:00 4.0 Intake and Output 10/03/16 07:00 Intake Total 100 ml Output Total 1880 ml Balance -1780 ml Intake Oral 100 ml Output Urine Total 1850 ml Drainage Total 30 ml Physical Exam Physical Exam No significant changes in cardiac exam Assessment Assessment Patient improving. I agree with present plan. Problems Medical Problems: (1) Chest pain Status: Acute (2) SOB (shortness of breath) Status: Acute Comment Review of Relevant I have reviewed the following items olimpia (where applicable) has been applied. Labs Laboratory Tests Test 10/01/16 17:09 10/01/16 20:20 10/01/16 21:00 10/01/16 21:43 Glucose (Fingerstick) 215mg/dL (70-99) 233mg/dL (70-99) 246mg/dL (70-99) Nasal Screen MRSA (PCR) Negative (Negative) Test 10/02/16 04:56 10/02/16 06:38 10/02/16 08:43 10/02/16 11:20 Glucose (Fingerstick) 274mg/dL (70-99) 262mg/dL (70-99) White Blood Count 16.7x10^3/uL (4.0-11.0) Red Blood Count 4.04x10^6/uL (4.30-5.70) Hemoglobin 11.9g/dL (13.0-17.5) Hematocrit 36.9% (39.0-53.0) Mean Corpuscular Volume 91fL (79-100) Mean Corpuscular Hemoglobin 30pg (25-35) Mean Corpuscular Hemoglobin Concent 32g/dL (31-37) Red Cell Distribution Width 14.6% (11.5-14.5) Platelet Count 177x10^3/uL (140-400) Neutrophils (%) (Auto) 89% (31-73) Lymphocytes (%) (Auto) 6% (24-48) Monocytes (%) (Auto) 6% (0-9) Eosinophils (%) (Auto) 0% (0-3) Basophils (%) (Auto) 0% (0-3) Neutrophils # (Auto) 14.8x10^3uL (1.8-7.7) Lymphocytes # (Auto) 0.9x10^3/uL (1.0-4.8) Monocytes # (Auto) 0.9x10^3/uL (0.0-1.1) Eosinophils # (Auto) 0.0x10^3/uL (0.0-0.7) Basophils # (Auto) 0.0x10^3/uL (0.0-0.2) Segmented Neutrophils % 87% (35-66) Band Neutrophils % 6% (0-9) Lymphocytes % 4% (24-48) Monocytes % 3% (0-10) Platelet Estimate Adequate (ADEQUATE) Sodium Level 140mmol/L (136-145) Potassium Level 3.9mmol/L (3.5-5.1) Chloride Level 106mmol/L (98-107) Carbon Dioxide Level 22mmol/L (21-32) Anion Gap 12 (6-14) Blood Urea Nitrogen 16mg/dL (8-26) Creatinine 0.9mg/dL (0.7-1.3) Estimated GFR (Cockcroft-Gault) 80.6 Glucose Level 313mg/dL (70-99) Calcium Level 8.1mg/dL (8.5-10.1) Prothrombin Time 19.0SEC (11.7-14.0) Prothromb Time International Ratio 1.7 (0.8-1.1) Test 10/02/16 12:37 10/02/16 17:20 10/02/16 20:46 10/03/16 05:55 Glucose (Fingerstick) 269mg/dL (70-99) 203mg/dL (70-99) 232mg/dL (70-99) White Blood Count 14.2x10^3/uL (4.0-11.0) Red Blood Count 3.70x10^6/uL (4.30-5.70) Hemoglobin 11.1g/dL (13.0-17.5) Hematocrit 33.3% (39.0-53.0) Mean Corpuscular Volume 90fL (79-100) Mean Corpuscular Hemoglobin 30pg (25-35) Mean Corpuscular Hemoglobin Concent 33g/dL (31-37) Red Cell Distribution Width 14.7% (11.5-14.5) Platelet Count 162x10^3/uL (140-400) Neutrophils (%) (Auto) 78% (31-73) Lymphocytes (%) (Auto) 16% (24-48) Monocytes (%) (Auto) 5% (0-9) Eosinophils (%) (Auto) 0% (0-3) Basophils (%) (Auto) 0% (0-3) Neutrophils # (Auto) 11.1x10^3uL (1.8-7.7) Lymphocytes # (Auto) 2.3x10^3/uL (1.0-4.8) Monocytes # (Auto) 0.8x10^3/uL (0.0-1.1) Eosinophils # (Auto) 0.0x10^3/uL (0.0-0.7) Basophils # (Auto) 0.0x10^3/uL (0.0-0.2) Sodium Level 138mmol/L (136-145) Potassium Level 3.5mmol/L (3.5-5.1) Chloride Level 107mmol/L (98-107) Carbon Dioxide Level 24mmol/L (21-32) Anion Gap 7 (6-14) Blood Urea Nitrogen 17mg/dL (8-26) Creatinine 0.7mg/dL (0.7-1.3) Estimated GFR (Cockcroft-Gault) 107.7 Glucose Level 153mg/dL (70-99) Calcium Level 8.3mg/dL (8.5-10.1) Test 10/03/16 07:18 10/03/16 11:20 Glucose (Fingerstick) 150mg/dL (70-99) 197mg/dL (70-99) Laboratory Tests Test 10/02/16 17:20 10/02/16 20:46 10/03/16 05:55 10/03/16 07:18 Glucose (Fingerstick) 203mg/dL (70-99) 232mg/dL (70-99) 150mg/dL (70-99) White Blood Count 14.2x10^3/uL (4.0-11.0) Red Blood Count 3.70x10^6/uL (4.30-5.70) Hemoglobin 11.1g/dL (13.0-17.5) Hematocrit 33.3% (39.0-53.0) Mean Corpuscular Volume 90fL (79-100) Mean Corpuscular Hemoglobin 30pg (25-35) Mean Corpuscular Hemoglobin Concent 33g/dL (31-37) Red Cell Distribution Width 14.7% (11.5-14.5) Platelet Count 162x10^3/uL (140-400) Neutrophils (%) (Auto) 78% (31-73) Lymphocytes (%) (Auto) 16% (24-48) Monocytes (%) (Auto) 5% (0-9) Eosinophils (%) (Auto) 0% (0-3) Basophils (%) (Auto) 0% (0-3) Neutrophils # (Auto) 11.1x10^3uL (1.8-7.7) Lymphocytes # (Auto) 2.3x10^3/uL (1.0-4.8) Monocytes # (Auto) 0.8x10^3/uL (0.0-1.1) Eosinophils # (Auto) 0.0x10^3/uL (0.0-0.7) Basophils # (Auto) 0.0x10^3/uL (0.0-0.2) Sodium Level 138mmol/L (136-145) Potassium Level 3.5mmol/L (3.5-5.1) Chloride Level 107mmol/L (98-107) Carbon Dioxide Level 24mmol/L (21-32) Anion Gap 7 (6-14) Blood Urea Nitrogen 17mg/dL (8-26) Creatinine 0.7mg/dL (0.7-1.3) Estimated GFR (Cockcroft-Gault) 107.7 Glucose Level 153mg/dL (70-99) Calcium Level 8.3mg/dL (8.5-10.1) Test 10/03/16 11:20 Glucose (Fingerstick) 197mg/dL (70-99) Microbiology 10/01/16 Blood Culture - Preliminary, Resulted NO GROWTH AFTER 1 DAY 10/01/16 Anaerobic/Aerobic Culture, Resulted Pending 10/01/16 Anaerobic Culture Result 1 (CHIQUI), Resulted Pending 10/01/16 Aerobic Culture - Preliminary, Resulted 10/01/16 Aerobic Culture Result 1 (CHIQUI) - Preliminary, Resulted 10/01/16 Anaerobic/Aerobic Culture, Resulted Pending 10/01/16 Anaerobic Culture Result 1 (CHIQUI), Resulted Pending 10/01/16 Aerobic Culture - Preliminary, Resulted 10/01/16 Aerobic Culture Result 1 (CHIQUI) - Preliminary, Resulted Medications Current Medications Aspirin (Children'S Aspirin) 324 mg 1X ONCE PO Last administered on at 20:29; Start 09/30/16 at 20:45; Stop 09/30/16 at 20:46; Status DC Nitroglycerin (Nitrostat) 0.4 mg PRN Q5MIN PRN SL CP RATING > 1/10 Last administered on 09/30/16at 20:33; Start 09/30/16 at 20:30; Stop 09/30/16 at 23 :59; Status DC Morphine Sulfate 4 mg 1X ONCE IV Last administered on 09/30/16at 21:20; Start 09/30/16 at 21:15; Stop 09/30/16 at 21:16; Status DC Ondansetron HCl (Zofran) 4 mg PRN Q8HRS PRN IV NAUSEA/VOMITING; Start at 21:45; Stop 10/01/16 at 14:11; Status DC Morphine Sulfate 4 mg PRN Q2HR PRN IV PAIN Last administered on 10/01/16at 15: 05; Start 09/30/16 at 21:45; Stop 10/01/16 at 21:44; Status DC Acetaminophen (Tylenol) 650 mg PRN Q4HRS PRN PO FEVER Last administered on at 02:53; Start 09/30/16 at 21:45; Stop 10/01/16 at 14:11; Status DC Nitroglycerin (Nitrostat) 0.4 mg PRN Q5MIN PRN SL CHEST PAIN; Start 09/30/16 at 21:45; Stop 10/01/16 at 21:44; Status DC Insulin Aspart (Novolog) 0-7 UNITS TIDWMEALS SQ Last administered on at 08:57; Start 10/01/16 at 08:00; Stop 10/01/16 at 09:35; Status DC Dextrose 12.5 gm PRN Q15MIN PRN IV SEE COMMENTS; Start 09/30/16 at 21:45 Acetaminophen (Tylenol) 325 mg PRN Q6HRS PRN PO MILD PAIN / TEMP; Start at 09:30 Acetaminophen/ Hydrocodone Bitart (Lortab 5/325) 1 tab PRN Q6HRS PRN PO MODERATE TO SEVERE PAIN Last administered on 10/02/16at 21:15; Start 10/01/16 at 09:30 Hydralazine HCl (Apresoline) 10 mg PRN Q4HRS PRN IVP ELEVATED BP, SEE COMMENTS ; Start 10/01/16 at 09:30 Ondansetron HCl (Zofran) 4 mg PRN Q8HRS PRN IV NAUSEA/VOMITING 1ST CHOICE; Start 10/01/16 at 09:30; Stop 10/02/16 at 07:58; Status DC Albuterol Sulfate (Ventolin Neb Soln) 2.5 mg PRN Q4HRS PRN NEB SHORTNESS OF BREATH; Start 10/01/16 at 09:30 Levothyroxine Sodium (Synthroid) 50 mcg DAILY07 PO ; Start 10/01/16 at 10:00; Stop 10/02/16 at 09:47; Status DC Metformin HCl (Glucophage) 1,000 mg [id number] PO Last administered on 08:30; Start 10/01/16 at 10:00 Insulin Detemir (Levemir) 10 units QHS SQ Last administered on 10/01/16at 21:57 ; Start 10/01/16 at 21:00; Stop 10/02/16 at 07:57; Status DC Insulin Aspart (Novolog) 0-9 UNITS TIDWMEALS SQ Last administered on 10/03/16 12:12; Start 10/01/16 at 12:00 Dextrose 12.5 gm 12.5 gm PRN Q15MIN PRN IV SEE COMMENTS; Start 10/01/16 at 09: 30; Status UNV Sodium Chloride (Iv Sodium Chloride 0.9% 1000ml Bag) 1,000 ml @ 75 mls/hr 1X ONCE IV ; Start 10/01/16 at 11:45; Stop 10/01/16 at 14:11; Status DC Pantoprazole Sodium (Protonix) 40 mg DAILYAC PO ; Start 10/01/16 at 12:00; Stop 10/02/16 at 09:47; Status DC Iohexol 75 ml 75 ml 1X ONCE IV Last administered on 10/01/16at 12:21; Start 10/01/16 at 12:15; Stop 10/01/16 at 12:16; Status DC Sodium Chloride 1,000 ml @ 75 mls/hr [id number] IV Last administered on 10/03/16 10:57; Start 10/01/16 at 14:15 Piperacillin Sod/ Tazobactam Sod/ Sodium Chloride (Zosyn/Iv Sodium Chloride 0.9 % 50ml) 50 ml @ 100 mls/hr Q6HRS IV Last administered on 10/03/16 12:06; Start 10/01/16 at 18:00 Fentanyl Citrate (Fentanyl 2ml Vial) 50 mcg PRN Q5MIN PRN IV Acute Pain; Start 10/01/16 at 16:00; Stop 10/01/16 at 23:00; Status DC Morphine Sulfate 4 mg PRN Q10MIN PRN IV Moderate Pain; Start 10/01/16 at 16:00 ; Stop 10/01/16 at 23:00; Status DC Hydromorphone HCl (Dilaudid) 0.4 mg PRN Q10MIN PRN IV Moderate to severe pain; Start 10/01/16 at 16:00; Stop 10/01/16 at 23:00; Status DC Prochlorperazine Edisylate (Compazine) 5 mg PRN Q6HRS PRN IV Nausea/Vomiting, 1st Choice; Start 10/01/16 at 16:00; Stop 10/01/16 at 23:00; Status DC Diphenhydramine HCl (Benadryl) 12.5 mg PRN Q2HR PRN IV ITCHING; Start at 16:00; Stop 10/01/16 at 23:00; Status DC Midazolam HCl (Versed) 2 mg PRN 1X PRN IV PRIOR TO PROCEDURE; Start 10/01/16 at 16:00; Stop 10/01/16 at 23:00; Status DC Midazolam HCl (Versed) 1 mg PRN 1X PRN IV PRIOR TO PROCEDURE; Start 10/01/16 at 16:00; Stop 10/01/16 at 23:00; Status DC Fentanyl Citrate (Fentanyl 2ml Vial) 25 mcg PRN Q5MIN PRN IV X 2 DOSES FOR PAIN ; Start 10/01/16 at 16:00; Stop 10/01/16 at 23:00; Status DC Fentanyl Citrate 50 mcg 50 mcg PRN Q5MIN PRN IV X 2 DOSES FOR PAIN; Start at 16:00; Stop 10/01/16 at 23:00; Status DC Lactated Ringer's (Iv Lactated Ringers) 1,000 ml @ 125 mls/hr Q8H IV ; Start 10/01/16 at 15:49; Stop 10/01/16 at 20:43; Status DC Lidocaine HCl 2 ml 1X PRN PRN ID IV START; Start 10/01/16 at 16:00; Stop at 23:00; Status DC Cellulose 1 each STK-MED ONCE .ROUTE Last administered on 10/01/16at 19:19; Start 10/01/16 at 16:09; Stop 10/01/16 at 16:10; Status DC Bupivacaine HCl/ Epinephrine Bitart (Marcaine-Epi 0.5%-[id number]) 50 ml STK-MED ONCE .ROUTE Last administered on 10/01/16at 18:04; Start 10/01/16 at 16:10; Stop 10/01/16 at 16:11; Status DC Glucagon (Glucagen) 1 mg STK-MED ONCE .ROUTE ; Start 10/01/16 at 16:10; Stop 10/01/16 at 16:11; Status DC Iohexol 50 ml 50 ml STK-MED ONCE .ROUTE Last administered on 10/01/16at 18:04; Start 10/01/16 at 16:10; Stop 10/01/16 at 16:11; Status DC Acetaminophen (Ofirmev) 100 ml @ 400 mls/hr 1X PACU PRN IV FEVER Last administered on 10/01/16at 17:37; Start 10/01/16 at 17:30; Stop 10/01/16 at 23 :00; Status DC Rocuronium [place] (Zemuron) 50 mg STK-MED ONCE .ROUTE ; Start 10/01/16 at 17: 54; Stop 10/01/16 at 17:55; Status DC Lidocaine HCl 100 mg STK-MED ONCE .ROUTE ; Start 10/01/16 at 17:54; Stop 10/01 at 17:55; Status DC Fentanyl Citrate 100 mcg 100 mcg STK-MED ONCE .ROUTE ; Start 10/01/16 at 17:54 ; Stop 10/01/16 at 17:55; Status DC Propofol (Diprivan) 20 ml @ As Directed STK-MED ONCE IV ; Start 10/01/16 at 17: 58; Stop 10/01/16 at 17:59; Status DC Dexamethasone Sodium Phosphate (Decadron) 20 mg STK-MED ONCE .ROUTE ; Start at 18:20; Stop 10/01/16 at 18:21; Status DC Desflurane (Suprane) 30 ml STK-MED ONCE IH ; Start 10/01/16 at 18:20; Stop at 18:21; Status DC Esmolol HCl (Brevibloc) 100 mg STK-MED ONCE IV ; Start 10/01/16 at 18:55; Stop 10/01/16 at 18:56; Status DC Fentanyl Citrate (Fentanyl 2ml Vial) 100 mcg STK-MED ONCE .ROUTE ; Start at 19:35; Stop 10/01/16 at 19:36; Status DC Insulin Detemir (Levemir) 15 units QHS SQ Last administered on 10/02/16at 22:40 ; Start 10/02/16 at 21:00 Ondansetron HCl (Zofran) 4 mg PRN Q6HRS PRN IV NAUSEA/VOMITING 1ST CHOICE; Start 10/02/16 at 09:30 Pantoprazole Sodium 40 mg 40 mg DAILYAC IVP Last administered on 10/03/16t 08:31 ; Start 10/02/16 at 09:45 Levothyroxine Sodium/Sodium Chloride (Synthroid/Iv Sodium Chloride 0.9% 50ml) 5 ml @ 100 mls/hr DAILY IVP Last administered on 10/03/16t 10:57; Start 10/02/16 at 09:45 Morphine Sulfate 2 mg PRN Q2HR PRN IV PAIN Last administered on 10/02/16at 10: 23; Start 10/02/16 at 10:15 Enoxaparin Sodium (Lovenox 40mg Syringe) 40 mg Q24H SQ ; Start 10/03/16 at 14:00 Active Scripts Active Reported Metformin Hcl 1,000 Mg Tablet Synthroid (Levothyroxine Sodium) 50 Mcg Tablet Lantus Solostar (Insulin Glargine,Hum.rec.anlog) 100 Unit/1 Ml Insuln.pen Novolog Flexpen (Insulin Aspart) 100 Unit/1 Ml Insuln.pen Vitals/I & O Vital Sign - Last 24 Hours 10/02/16 10/02/16 10/02/16 10/02/16 16:23 19:00 21:15 22:15 Temp 97.9 98.4 97.9 98.4 Pulse 103 99 Resp 21 18 20 20 B/P 136/71 133/81 Pulse Ox 92 92 96 96 O2 Delivery Room Air Room Air Room Air Room Air 10/02/16 10/03/16 10/03/16 10/03/16 22:55 00:17 02:48 07:56 Temp 98.1 97.7 96.1 98.1 97.7 96.1 Pulse 92 83 83 Resp 18 18 B/P 114/65 113/68 136/78 Pulse Ox 93 91 92 O2 Delivery Room Air Room Air Room Air Room Air 10/03/16 10/03/16 10/03/16 08:30 10:36 15:27 Temp 97.5 97.7 97.5 97.7 Pulse 83 81 Resp 18 18 B/P 141/83 135/78 Pulse Ox 93 93 O2 Delivery Room Air Room Air Room Air Intake and Output 10/02/16 10/02/16 10/03/16 15:00 23:00 07:00 Intake Total 0 ml 100 ml Output Total 350 ml 0 ml 1530 ml Balance -350 ml 0 ml -1430 ml NADINE ORR MD Oct 03, 2016 15:52
[2016-10-03] MEDS: ENOXAPARIN 40 MG/0.4 ML DISP.SYRIN. SQ SCH (17:33)
[2016-10-03 19:00] VITALS: BP 135/74
[2016-10-03] MEDS: INSULIN DETEMIR 300 UNITS/3 ML INSULN.PEN. SQ SCH (20:18)
[2016-10-03] MEDS: HYDROCODONE/APAP 5/325MG TABLET. PO PRN (21:12)
[2016-10-03 23:00] VITALS: BP 142/82
--- NOTE | 2016-10-04 00:56 | CONS ---
DATE OF CONSULTATION: 10/01/2016 LOCATION: ROOM 554. REQUESTING PHYSICIAN: Dr. Boston. REASON FOR CONSULTATION: Antibiotic selection. HISTORY OF PRESENT ILLNESS: Obtained mainly from the chart. The patient is somewhat encephalopathic at this point. According to chart he is an 81-year-old gentleman who came to the Emergency Room with complaints of epigastric lower chest pain for 3-4 hours, although he told me it was for approximately 3 days. Apparently, he had some urinary incontinence. He said he may have had some nausea, but does not remember any fevers, chills or sweats. Denies any headaches. No gross shortness of air. Denies any falls or traumas. Denies any pain with eating, but when he was brought to [facility] he had a white blood cell count of 12,000. He has had a fever up to 100.4 orally. He underwent a CT scan of the abdomen and pelvis earlier today showing he has emphysematous cholecystitis, colonic diverticulosis, ____ size hiatal hernia and some streaky bibasilar atelectasis. He has been evaluated by Dr. Boston. Dr. Boston is going to take him to surgery. He consulted me for recommendations with regards to antibiotics and I suggested Zosyn. Currently, the patient appears to be again confused, but comfortable. PAST MEDICAL HISTORY: According to chart is positive for diabetes, also has sleep apnea. Hypothyroidism. PAST SURGICAL HISTORY: Positive for knee replacements as well as cataracts. He also states he has had his tonsils removed. REVIEW OF SYSTEMS: As mentioned above, but somewhat unreliable. SOCIAL HISTORY: No tobacco, alcohol or drug use. FAMILY HISTORY: Noncontributory. ALLERGIES: Listed as MEPERIDINE. CURRENT MEDICATIONS: Again, Zosyn has been recommended. Albuterol, aspirin, hydralazine, insulin, levothyroxine, metformin, Zofran, Protonix. PHYSICAL EXAMINATION: VITAL SIGNS: T-max again has been 100.4 orally, currently at 97, pulse 107, respirations 18, blood pressure 130/71, satting 96% on room air. CONSTITUTIONAL: He is lethargic, but arousable. He is in no acute distress. He does answer questions, but again is somewhat confused. HEENT: Pupils are status post cataract surgery. He has normal conjunctivae. Oral cavity, pharynx is dry. NECK: Supple, no JVD. LUNGS: Clear to auscultation bilaterally. HEART: S1, S2. ABDOMEN: Mildly distended, decreased bowel sounds. He has some mild tenderness in the right upper quadrant. There is no rebound, no guarding in the lower quadrants. EXTREMITIES: Without clubbing, cyanosis or gross edema. SKIN: Without generalized signs of rash. Warm to touch. NEUROLOGIC: He did move all extremities, but again he is confused. LABORATORY DATA: White count 12, hemoglobin 13.6, platelets 226, neutrophils 70, lymphs are 21, creatinine 0.9, AST 11, ALT 21, alkaline phosphatase 117, ____ fingerstick glucose is 208. Urinalysis is clean. CT scan of the head negative. Chest x-ray negative. CT scan reviewed in history of present illness. IMPRESSION: 1. Fever. 2. Leukocytosis. 3. Acute encephalopathy. 4. Acute cholecystitis. 5. Diabetes. RECOMMENDATIONS: Again, I did recommend institution of Zosyn to Dr. Boston. We will order a dose now. Obtain blood cultures x 2. Follow up on labs and requested Dr. Boston to obtain some cultures if there are some purulent material around the gallbladder to rule out potential resistant organisms. This was discussed with Dr. Boston. Thank you for allowing me to participate in the patient's care. If you have any questions, please do not hesitate to contact me. RHONDA DA SILVA MD DR: BLAINE/tammy JOB#: [id number] / [id number]
[2016-10-04 03:12] VITALS: BP 126/82
[2016-10-04] MEDS: IV NORMAL SALINE 1000ML BAG 1,000 ML IV SCH ×3 (03:20→21:39)
[2016-10-04] MEDS: PIPERACILLIN/TAZOBACTAM 3.375 GM in IV NORMAL SALINE 50ML 50 ML IV SCH ×3 (05:49)
[2016-10-04 07:00] VITALS: BP 132/90
[2016-10-04] MEDS: INSULIN ASPART 300 UNITS/3 ML INSULN.PEN SQ SCH ×3 (08:00→18:19)
[2016-10-04 08:02] LABS: BASO % 0 % (0-3); EOS % 3 % (0-3); HEMATOCRIT 34.5 % (39.0-53.0); HEMOGLOBIN 11.6 g/dL (13.0-17.5); LYMPH # 3.7 x10^3/uL (1.0-4.8); LYMPH % 38 % (24-48); MEAN CORPUSCULAR HEMOGLOBIN 30 pg (25-35); MEAN CORPUSCULAR HGB CONC 34 g/dL (31-37); MEAN CORPUSCULAR VOLUME 91 fL (79-100); MONO % 7 % (0-9); NEUT % 52 % (31-73); PLATELET COUNT 183 x10^3/uL (140-400); RED BLOOD COUNT 3.81 x10^6/uL (4.30-5.70); RED CELL DISTRIBUTION WIDTH 14.6 % (11.5-14.5); WHITE BLOOD COUNT 9.6 x10^3/uL (4.0-11.0)
[2016-10-04] MEDS: METFORMIN 1,000 MG TABLET PO SCH (08:06)
[2016-10-04] MEDS: PANTOPRAZOLE IV PUSH 40 MG VIAL. IVP SCH (08:06)
[2016-10-04 08:07] LABS: CALCIUM 8.1 mg/dL (8.5-10.1); CREATININE 0.7 mg/dL (0.7-1.3); GFR 107.7; POTASSIUM 3.5 mmol/L (3.5-5.1)
[2016-10-04] MEDS: LEVOTHYROXINE SODIUM 25 MCG in IV NORMAL SALINE 50ML 5 ML IVP SCH (10:23)
--- NOTE | 2016-10-04 10:27 | PDOC ---
Infectious Disease Note Subjective Subjective c/o min pain at drain site, otherwise feeling ok + BM or flatus On Full liquids ROS ROS GEN: Denies fevers, chills, sweats HEENT: Denies blurred vision, sore throat CV: Denies chest pain RESP: Denies shortness of air, cough GI: Denies n/v/d NEURO: Denies confusion, dizziness MSK: Denies weakness, joint pain/swelling Vital Sign Vital Signs Vital Signs Date Time Temp Pulse Resp B/P Pulse Ox O2 Delivery O2 Flow Rate FiO2 10/04/16 08:00 Room Air 10/04/16 07:00 97.9 73 20 132/90 94 97.9 10/03/16 22:15 4.0 Physical Exam PHYSICAL EXAM GENERAL: NAD, Alert HEENT: PERRL, OC/OP - clear NECK: Supple, no JVD, no LN LUNGS: Clear HEART: S1S2, no gallop, no murmur ABD: Soft, NT, no organomegaly, no rebound. ABBY with some bloody drainage EXT: No edema, no cyanosis BREAKER HAND: Alert, oriented x 3, no focal neurologic deficit SKIN: No rash IV: ok Labs Lab Laboratory Tests Test 10/03/16 11:20 10/03/16 16:39 10/03/16 20:10 10/04/16 07:20 Glucose (Fingerstick) 197mg/dL (70-99) 162mg/dL (70-99) 195mg/dL (70-99) White Blood Count 9.6x10^3/uL (4.0-11.0) Red Blood Count 3.81x10^6/uL (4.30-5.70) Hemoglobin 11.6g/dL (13.0-17.5) Hematocrit 34.5% (39.0-53.0) Mean Corpuscular Volume 91fL (79-100) Mean Corpuscular Hemoglobin 30pg (25-35) Mean Corpuscular Hemoglobin Concent 34g/dL (31-37) Red Cell Distribution Width 14.6% (11.5-14.5) Platelet Count 183x10^3/uL (140-400) Neutrophils (%) (Auto) 52% (31-73) Lymphocytes (%) (Auto) 38% (24-48) Monocytes (%) (Auto) 7% (0-9) Eosinophils (%) (Auto) 3% (0-3) Basophils (%) (Auto) 0% (0-3) Neutrophils # (Auto) 5.0x10^3uL (1.8-7.7) Lymphocytes # (Auto) 3.7x10^3/uL (1.0-4.8) Monocytes # (Auto) 0.7x10^3/uL (0.0-1.1) Eosinophils # (Auto) 0.2x10^3/uL (0.0-0.7) Basophils # (Auto) 0.0x10^3/uL (0.0-0.2) Sodium Level 142mmol/L (136-145) Potassium Level 3.5mmol/L (3.5-5.1) Chloride Level 109mmol/L (98-107) Carbon Dioxide Level 24mmol/L (21-32) Anion Gap 9 (6-14) Blood Urea Nitrogen 13mg/dL (8-26) Creatinine 0.7mg/dL (0.7-1.3) Estimated GFR (Cockcroft-Gault) 107.7 Glucose Level 78mg/dL (70-99) Calcium Level 8.1mg/dL (8.5-10.1) Test 10/04/16 07:59 Glucose (Fingerstick) 81mg/dL (70-99) Objective Assessment Fever - better Leukocytosis - + post op -Steroids 10/01 Acute Encephalopathy- improved Acute Cholecystitis- gangrenous, s/p cholecystomy, 10/01 Clostridium on gram stain but cults neg DM Plan Plan of Care Discont Zosyn Begin Augmentin F/u labs RHONDA DA SILVA MD Oct 04, 2016 10:27
[2016-10-04] MEDS: AMOXICILLIN/K CLAV 875/125MG TABLET. PO SCH ×2 (10:36→21:37)
[2016-10-04 10:51] VITALS: BP 129/86
--- NOTE | 2016-10-04 11:40 | PDOC ---
PROGRESS NOTES Chief Complaint Chief Complaint 1. s.p lap ofe for acute cholecystitis 10/01, gangreous 2. 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 Fevers resolved 4. SIRS no sepsis 5. Geriatric 6. 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 plan: 1. fu with sx, ID 2. off zosyn on 10/04, augmentin with ID 3. ivf 75CC/H 4. metformin, on levemir 15u qhs, SSI, (home levemir 30u) 5. full liquid, defer to sx to advance. still has ABBY drainage dvt ppx PTOT History of Present Illness History of Present Illness feels ok no BM + BS MILD ABD PAIN Vitals Vitals Vital Signs Date Time Temp Pulse Resp B/P Pulse Ox O2 Delivery O2 Flow Rate FiO2 10/04/16 10:51 98.0 80 20 129/86 93 Room Air 98.0 10/03/16 22:15 4.0 Physical Exam General: Alert, Cooperative, No acute distress Heart: Regular rate, Normal S1, Normal S2, Other (S3. Blowing 2/6 systolic murmur over apex ) Lungs: Clear Abdomen: Normal bowel sounds, Soft, Other (small amount of serosanguineous output in ABBY drain, MILD tenderness) Extremities: No clubbing, No cyanosis, No edema Labs LABS Laboratory Tests Test 10/03/16 16:39 10/03/16 20:10 10/04/16 07:20 10/04/16 07:59 Glucose (Fingerstick) 162mg/dL (70-99) 195mg/dL (70-99) 81mg/dL (70-99) White Blood Count 9.6x10^3/uL (4.0-11.0) Red Blood Count 3.81x10^6/uL (4.30-5.70) Hemoglobin 11.6g/dL (13.0-17.5) Hematocrit 34.5% (39.0-53.0) Mean Corpuscular Volume 91fL (79-100) Mean Corpuscular Hemoglobin 30pg (25-35) Mean Corpuscular Hemoglobin Concent 34g/dL (31-37) Red Cell Distribution Width 14.6% (11.5-14.5) Platelet Count 183x10^3/uL (140-400) Neutrophils (%) (Auto) 52% (31-73) Lymphocytes (%) (Auto) 38% (24-48) Monocytes (%) (Auto) 7% (0-9) Eosinophils (%) (Auto) 3% (0-3) Basophils (%) (Auto) 0% (0-3) Neutrophils # (Auto) 5.0x10^3uL (1.8-7.7) Lymphocytes # (Auto) 3.7x10^3/uL (1.0-4.8) Monocytes # (Auto) 0.7x10^3/uL (0.0-1.1) Eosinophils # (Auto) 0.2x10^3/uL (0.0-0.7) Basophils # (Auto) 0.0x10^3/uL (0.0-0.2) Sodium Level 142mmol/L (136-145) Potassium Level 3.5mmol/L (3.5-5.1) Chloride Level 109mmol/L (98-107) Carbon Dioxide Level 24mmol/L (21-32) Anion Gap 9 (6-14) Blood Urea Nitrogen 13mg/dL (8-26) Creatinine 0.7mg/dL (0.7-1.3) Estimated GFR (Cockcroft-Gault) 107.7 Glucose Level 78mg/dL (70-99) Calcium Level 8.1mg/dL (8.5-10.1) Review of Systems Review of Systems No fever, chills, sob or chest pain Assessment and Plan Assessmemt and Plan Problems Medical Problems: (1) Chest pain Status: Acute (2) SOB (shortness of breath) Status: Acute Problems: Comment Review of Relevant I have reviewed the following items olimpia (where applicable) has been applied. Labs Laboratory Tests Test 10/02/16 12:37 10/02/16 17:20 10/02/16 20:46 10/03/16 05:55 Glucose (Fingerstick) 269mg/dL (70-99) 203mg/dL (70-99) 232mg/dL (70-99) White Blood Count 14.2x10^3/uL (4.0-11.0) Red Blood Count 3.70x10^6/uL (4.30-5.70) Hemoglobin 11.1g/dL (13.0-17.5) Hematocrit 33.3% (39.0-53.0) Mean Corpuscular Volume 90fL (79-100) Mean Corpuscular Hemoglobin 30pg (25-35) Mean Corpuscular Hemoglobin Concent 33g/dL (31-37) Red Cell Distribution Width 14.7% (11.5-14.5) Platelet Count 162x10^3/uL (140-400) Neutrophils (%) (Auto) 78% (31-73) Lymphocytes (%) (Auto) 16% (24-48) Monocytes (%) (Auto) 5% (0-9) Eosinophils (%) (Auto) 0% (0-3) Basophils (%) (Auto) 0% (0-3) Neutrophils # (Auto) 11.1x10^3uL (1.8-7.7) Lymphocytes # (Auto) 2.3x10^3/uL (1.0-4.8) Monocytes # (Auto) 0.8x10^3/uL (0.0-1.1) Eosinophils # (Auto) 0.0x10^3/uL (0.0-0.7) Basophils # (Auto) 0.0x10^3/uL (0.0-0.2) Sodium Level 138mmol/L (136-145) Potassium Level 3.5mmol/L (3.5-5.1) Chloride Level 107mmol/L (98-107) Carbon Dioxide Level 24mmol/L (21-32) Anion Gap 7 (6-14) Blood Urea Nitrogen 17mg/dL (8-26) Creatinine 0.7mg/dL (0.7-1.3) Estimated GFR (Cockcroft-Gault) 107.7 Glucose Level 153mg/dL (70-99) Calcium Level 8.3mg/dL (8.5-10.1) Test 10/03/16 07:18 10/03/16 11:20 10/03/16 16:39 10/03/16 20:10 Glucose (Fingerstick) 150mg/dL (70-99) 197mg/dL (70-99) 162mg/dL (70-99) 195mg/dL (70-99) Test 10/04/16 07:20 10/04/16 07:59 White Blood Count 9.6x10^3/uL (4.0-11.0) Red Blood Count 3.81x10^6/uL (4.30-5.70) Hemoglobin 11.6g/dL (13.0-17.5) Hematocrit 34.5% (39.0-53.0) Mean Corpuscular Volume 91fL (79-100) Mean Corpuscular Hemoglobin 30pg (25-35) Mean Corpuscular Hemoglobin Concent 34g/dL (31-37) Red Cell Distribution Width 14.6% (11.5-14.5) Platelet Count 183x10^3/uL (140-400) Neutrophils (%) (Auto) 52% (31-73) Lymphocytes (%) (Auto) 38% (24-48) Monocytes (%) (Auto) 7% (0-9) Eosinophils (%) (Auto) 3% (0-3) Basophils (%) (Auto) 0% (0-3) Neutrophils # (Auto) 5.0x10^3uL (1.8-7.7) Lymphocytes # (Auto) 3.7x10^3/uL (1.0-4.8) Monocytes # (Auto) 0.7x10^3/uL (0.0-1.1) Eosinophils # (Auto) 0.2x10^3/uL (0.0-0.7) Basophils # (Auto) 0.0x10^3/uL (0.0-0.2) Sodium Level 142mmol/L (136-145) Potassium Level 3.5mmol/L (3.5-5.1) Chloride Level 109mmol/L (98-107) Carbon Dioxide Level 24mmol/L (21-32) Anion Gap 9 (6-14) Blood Urea Nitrogen 13mg/dL (8-26) Creatinine 0.7mg/dL (0.7-1.3) Estimated GFR (Cockcroft-Gault) 107.7 Glucose Level 78mg/dL (70-99) Calcium Level 8.1mg/dL (8.5-10.1) Glucose (Fingerstick) 81mg/dL (70-99) Laboratory Tests Test 10/03/16 16:39 10/03/16 20:10 10/04/16 07:20 10/04/16 07:59 Glucose (Fingerstick) 162mg/dL (70-99) 195mg/dL (70-99) 81mg/dL (70-99) White Blood Count 9.6x10^3/uL (4.0-11.0) Red Blood Count 3.81x10^6/uL (4.30-5.70) Hemoglobin 11.6g/dL (13.0-17.5) Hematocrit 34.5% (39.0-53.0) Mean Corpuscular Volume 91fL (79-100) Mean Corpuscular Hemoglobin 30pg (25-35) Mean Corpuscular Hemoglobin Concent 34g/dL (31-37) Red Cell Distribution Width 14.6% (11.5-14.5) Platelet Count 183x10^3/uL (140-400) Neutrophils (%) (Auto) 52% (31-73) Lymphocytes (%) (Auto) 38% (24-48) Monocytes (%) (Auto) 7% (0-9) Eosinophils (%) (Auto) 3% (0-3) Basophils (%) (Auto) 0% (0-3) Neutrophils # (Auto) 5.0x10^3uL (1.8-7.7) Lymphocytes # (Auto) 3.7x10^3/uL (1.0-4.8) Monocytes # (Auto) 0.7x10^3/uL (0.0-1.1) Eosinophils # (Auto) 0.2x10^3/uL (0.0-0.7) Basophils # (Auto) 0.0x10^3/uL (0.0-0.2) Sodium Level 142mmol/L (136-145) Potassium Level 3.5mmol/L (3.5-5.1) Chloride Level 109mmol/L (98-107) Carbon Dioxide Level 24mmol/L (21-32) Anion Gap 9 (6-14) Blood Urea Nitrogen 13mg/dL (8-26) Creatinine 0.7mg/dL (0.7-1.3) Estimated GFR (Cockcroft-Gault) 107.7 Glucose Level 78mg/dL (70-99) Calcium Level 8.1mg/dL (8.5-10.1) Microbiology 10/01/16 Blood Culture - Preliminary, Resulted NO GROWTH AFTER 2 DAYS 10/01/16 Anaerobic/Aerobic Culture, Resulted Pending 10/01/16 Anaerobic Culture Result 1 (CHIQUI), Resulted Pending 10/01/16 Aerobic Culture - Preliminary, Resulted 10/01/16 Aerobic Culture Result 1 (CHIQUI) - Preliminary, Resulted 10/01/16 Anaerobic/Aerobic Culture, Resulted Pending 10/01/16 Anaerobic Culture Result 1 (CHIQUI), Resulted Pending 10/01/16 Aerobic Culture - Preliminary, Resulted 10/01/16 Aerobic Culture Result 1 (CHIQUI) - Preliminary, Resulted Medications Current Medications Aspirin (Children'S Aspirin) 324 mg 1X ONCE PO Last administered on at 20:29; Start 09/30/16 at 20:45; Stop 09/30/16 at 20:46; Status DC Nitroglycerin (Nitrostat) 0.4 mg PRN Q5MIN PRN SL CP RATING > 1/10 Last administered on 09/30/16at 20:33; Start 09/30/16 at 20:30; Stop 09/30/16 at 23 :59; Status DC Morphine Sulfate 4 mg 1X ONCE IV Last administered on 09/30/16at 21:20; Start 09/30/16 at 21:15; Stop 09/30/16 at 21:16; Status DC Ondansetron HCl (Zofran) 4 mg PRN Q8HRS PRN IV NAUSEA/VOMITING; Start at 21:45; Stop 10/01/16 at 14:11; Status DC Morphine Sulfate 4 mg PRN Q2HR PRN IV PAIN Last administered on 10/01/16at 15: 05; Start 09/30/16 at 21:45; Stop 10/01/16 at 21:44; Status DC Acetaminophen (Tylenol) 650 mg PRN Q4HRS PRN PO FEVER Last administered on at 02:53; Start 09/30/16 at 21:45; Stop 10/01/16 at 14:11; Status DC Nitroglycerin (Nitrostat) 0.4 mg PRN Q5MIN PRN SL CHEST PAIN; Start 09/30/16 at 21:45; Stop 10/01/16 at 21:44; Status DC Insulin Aspart (Novolog) 0-7 UNITS TIDWMEALS SQ Last administered on at 08:57; Start 10/01/16 at 08:00; Stop 10/01/16 at 09:35; Status DC Dextrose 12.5 gm PRN Q15MIN PRN IV SEE COMMENTS; Start 09/30/16 at 21:45 Acetaminophen (Tylenol) 325 mg PRN Q6HRS PRN PO MILD PAIN / TEMP; Start at 09:30 Acetaminophen/ Hydrocodone Bitart (Lortab 5/325) 1 tab PRN Q6HRS PRN PO MODERATE TO SEVERE PAIN Last administered on 10/03/16 21:12; Start 10/01/16 at 09:30 Hydralazine HCl (Apresoline) 10 mg PRN Q4HRS PRN IVP ELEVATED BP, SEE COMMENTS ; Start 10/01/16 at 09:30 Ondansetron HCl (Zofran) 4 mg PRN Q8HRS PRN IV NAUSEA/VOMITING 1ST CHOICE; Start 10/01/16 at 09:30; Stop 10/02/16 at 07:58; Status DC Albuterol Sulfate (Ventolin Neb Soln) 2.5 mg PRN Q4HRS PRN NEB SHORTNESS OF BREATH; Start 10/01/16 at 09:30 Levothyroxine Sodium (Synthroid) 50 mcg DAILY07 PO ; Start 10/01/16 at 10:00; Stop 10/02/16 at 09:47; Status DC Metformin HCl (Glucophage) 1,000 mg [id number] PO Last administered on 08:06; Start 10/01/16 at 10:00 Insulin Detemir (Levemir) 10 units QHS SQ Last administered on 10/01/16at 21:57 ; Start 10/01/16 at 21:00; Stop 10/02/16 at 07:57; Status DC Insulin Aspart (Novolog) 0-9 UNITS TIDWMEALS SQ Last administered on 10/03/16 17:40; Start 10/01/16 at 12:00 Dextrose 12.5 gm 12.5 gm PRN Q15MIN PRN IV SEE COMMENTS; Start 10/01/16 at 09: 30; Status UNV Sodium Chloride (Iv Sodium Chloride 0.9% 1000ml Bag) 1,000 ml @ 75 mls/hr 1X ONCE IV ; Start 10/01/16 at 11:45; Stop 10/01/16 at 14:11; Status DC Pantoprazole Sodium (Protonix) 40 mg DAILYAC PO ; Start 10/01/16 at 12:00; Stop 10/02/16 at 09:47; Status DC Iohexol 75 ml 75 ml 1X ONCE IV Last administered on 10/01/16at 12:21; Start 10/01/16 at 12:15; Stop 10/01/16 at 12:16; Status DC Sodium Chloride 1,000 ml @ 75 mls/hr [id number] IV Last administered on 10/04/16 03:20; Start 10/01/16 at 14:15 Piperacillin Sod/ Tazobactam Sod/ Sodium Chloride (Zosyn/Iv Sodium Chloride 0.9 % 50ml) 50 ml @ 100 mls/hr Q6HRS IV Last administered on 10/04/16 05:49; Start 10/01/16 at 18:00; Stop 10/04/16 at 10:27; Status DC Fentanyl Citrate (Fentanyl 2ml Vial) 50 mcg PRN Q5MIN PRN IV Acute Pain; Start 10/01/16 at 16:00; Stop 10/01/16 at 23:00; Status DC Morphine Sulfate 4 mg PRN Q10MIN PRN IV Moderate Pain; Start 10/01/16 at 16:00 ; Stop 10/01/16 at 23:00; Status DC Hydromorphone HCl (Dilaudid) 0.4 mg PRN Q10MIN PRN IV Moderate to severe pain; Start 10/01/16 at 16:00; Stop 10/01/16 at 23:00; Status DC Prochlorperazine Edisylate (Compazine) 5 mg PRN Q6HRS PRN IV Nausea/Vomiting, 1st Choice; Start 10/01/16 at 16:00; Stop 10/01/16 at 23:00; Status DC Diphenhydramine HCl (Benadryl) 12.5 mg PRN Q2HR PRN IV ITCHING; Start at 16:00; Stop 10/01/16 at 23:00; Status DC Midazolam HCl (Versed) 2 mg PRN 1X PRN IV PRIOR TO PROCEDURE; Start 10/01/16 at 16:00; Stop 10/01/16 at 23:00; Status DC Midazolam HCl (Versed) 1 mg PRN 1X PRN IV PRIOR TO PROCEDURE; Start 10/01/16 at 16:00; Stop 10/01/16 at 23:00; Status DC Fentanyl Citrate (Fentanyl 2ml Vial) 25 mcg PRN Q5MIN PRN IV X 2 DOSES FOR PAIN ; Start 10/01/16 at 16:00; Stop 10/01/16 at 23:00; Status DC Fentanyl Citrate 50 mcg 50 mcg PRN Q5MIN PRN IV X 2 DOSES FOR PAIN; Start at 16:00; Stop 10/01/16 at 23:00; Status DC Lactated Ringer's (Iv Lactated Ringers) 1,000 ml @ 125 mls/hr Q8H IV ; Start 10/01/16 at 15:49; Stop 10/01/16 at 20:43; Status DC Lidocaine HCl 2 ml 1X PRN PRN ID IV START; Start 10/01/16 at 16:00; Stop at 23:00; Status DC Cellulose 1 each STK-MED ONCE .ROUTE Last administered on 10/01/16at 19:19; Start 10/01/16 at 16:09; Stop 10/01/16 at 16:10; Status DC Bupivacaine HCl/ Epinephrine Bitart (Marcaine-Epi 0.5%-[id number]) 50 ml STK-MED ONCE .ROUTE Last administered on 10/01/16at 18:04; Start 10/01/16 at 16:10; Stop 10/01/16 at 16:11; Status DC Glucagon (Glucagen) 1 mg STK-MED ONCE .ROUTE ; Start 10/01/16 at 16:10; Stop 10/01/16 at 16:11; Status DC Iohexol 50 ml 50 ml STK-MED ONCE .ROUTE Last administered on 10/01/16at 18:04; Start 10/01/16 at 16:10; Stop 10/01/16 at 16:11; Status DC Acetaminophen (Ofirmev) 100 ml @ 400 mls/hr 1X PACU PRN IV FEVER Last administered on 10/01/16at 17:37; Start 10/01/16 at 17:30; Stop 10/01/16 at 23 :00; Status DC Rocuronium Show Low (Zemuron) 50 mg STK-MED ONCE .ROUTE ; Start 10/01/16 at 17: 54; Stop 10/01/16 at 17:55; Status DC Lidocaine HCl 100 mg STK-MED ONCE .ROUTE ; Start 10/01/16 at 17:54; Stop 10/01 at 17:55; Status DC Fentanyl Citrate 100 mcg 100 mcg STK-MED ONCE .ROUTE ; Start 10/01/16 at 17:54 ; Stop 10/01/16 at 17:55; Status DC Propofol (Diprivan) 20 ml @ As Directed STK-MED ONCE IV ; Start 10/01/16 at 17: 58; Stop 10/01/16 at 17:59; Status DC Dexamethasone Sodium Phosphate (Decadron) 20 mg STK-MED ONCE .ROUTE ; Start at 18:20; Stop 10/01/16 at 18:21; Status DC Desflurane (Suprane) 30 ml STK-MED ONCE IH ; Start 10/01/16 at 18:20; Stop at 18:21; Status DC Esmolol HCl (Brevibloc) 100 mg STK-MED ONCE IV ; Start 10/01/16 at 18:55; Stop 10/01/16 at 18:56; Status DC Fentanyl Citrate (Fentanyl 2ml Vial) 100 mcg STK-MED ONCE .ROUTE ; Start at 19:35; Stop 10/01/16 at 19:36; Status DC Insulin Detemir (Levemir) 15 units QHS SQ Last administered on 10/03/16 20:18; Start 10/02/16 at 21:00 Ondansetron HCl (Zofran) 4 mg PRN Q6HRS PRN IV NAUSEA/VOMITING 1ST CHOICE; Start 10/02/16 at 09:30 Pantoprazole Sodium 40 mg 40 mg DAILYAC IVP Last administered on 10/04/16 08:06 ; Start 10/02/16 at 09:45 Levothyroxine Sodium/Sodium Chloride (Synthroid/Iv Sodium Chloride 0.9% 50ml) 5 ml @ 100 mls/hr DAILY IVP Last administered on 10/04/16 10:23; Start 10/02/16 at 09:45 Morphine Sulfate 2 mg PRN Q2HR PRN IV PAIN Last administered on 10/02/16at 10: 23; Start 10/02/16 at 10:15 Enoxaparin Sodium (Lovenox 40mg Syringe) 40 mg Q24H SQ Last administered on 10/03 17:33; Start 10/03/16 at 14:00 Amoxicillin/ Clavulanate Potassium (Augmentin 875/ 125mg) 1 tab BID PO Last administered on 10/04/16 10:36; Start 10/04/16 at 10:30 Active Scripts Active Reported Metformin Hcl 1,000 Mg Tablet Synthroid (Levothyroxine Sodium) 50 Mcg Tablet Lantus Solostar (Insulin Glargine,Hum.rec.anlog) 100 Unit/1 Ml Insuln.pen Novolog Flexpen (Insulin Aspart) 100 Unit/1 Ml Insuln.pen Vitals/I & O Vital Sign - Last 24 Hours 10/03/16 10/03/16 10/03/16 10/03/16 15:27 19:00 20:16 21:12 Temp 97.7 97.7 97.7 97.7 Pulse 81 84 Resp 18 20 B/P 135/78 135/74 Pulse Ox 93 93 93 O2 Delivery Room Air Room Air Room Air Room Air O2 Flow Rate 4.0 10/03/16 10/03/16 10/04/16 10/04/16 22:15 23:00 03:12 07:00 Temp 97.6 97.6 97.9 97.6 97.6 97.9 Pulse 73 68 73 Resp 20 20 20 B/P 142/82 126/82 132/90 Pulse Ox 93 93 93 94 O2 Delivery Room Air Room Air Room Air Room Air O2 Flow Rate 4.0 10/04/16 10/04/16 08:00 10:51 Temp 98.0 98.0 Pulse 80 Resp 20 B/P 129/86 Pulse Ox 93 O2 Delivery Room Air Room Air Intake and Output 10/03/16 10/03/16 10/04/16 15:00 23:00 07:00 Intake Total 1600 ml 250 ml Output Total 200 ml 1405 ml 400 ml Balance -200 ml 195 ml -150 ml REGGIE GONZÁLES MD Oct 04, 2016 11:40
[2016-10-04] MEDS: ENOXAPARIN 40 MG/0.4 ML DISP.SYRIN. SQ SCH (13:57)
--- NOTE | 2016-10-04 14:08 | PDOC ---
PROGRESS NOTES Subjective Subjective Patient has no cardiac complaints Objective Objective Vital Signs Date Time Temp Pulse Resp B/P Pulse Ox O2 Delivery O2 Flow Rate FiO2 10/04/16 10:51 98.0 80 20 129/86 93 Room Air 98.0 10/03/16 22:15 4.0 Intake and Output 10/04/16 07:00 Intake Total 1850 ml Output Total 2005 ml Balance -155 ml Intake Oral 1400 ml IV Total 450 ml Output Urine Total 1950 ml Drainage Total 55 ml Physical Exam Physical Exam No significant changes in cardiac exam Assessment Assessment Patient compensated cardiac-corado at this time. I agree with present plan. I will sign off unless further cardiac problems develop. Thank you very much for asking to participate in the care of this patient. Problems Medical Problems: (1) Chest pain Status: Acute (2) SOB (shortness of breath) Status: Acute Comment Review of Relevant I have reviewed the following items olimpia (where applicable) has been applied. Labs Laboratory Tests Test 10/02/16 17:20 10/02/16 20:46 10/03/16 05:55 10/03/16 07:18 Glucose (Fingerstick) 203mg/dL (70-99) 232mg/dL (70-99) 150mg/dL (70-99) White Blood Count 14.2x10^3/uL (4.0-11.0) Red Blood Count 3.70x10^6/uL (4.30-5.70) Hemoglobin 11.1g/dL (13.0-17.5) Hematocrit 33.3% (39.0-53.0) Mean Corpuscular Volume 90fL (79-100) Mean Corpuscular Hemoglobin 30pg (25-35) Mean Corpuscular Hemoglobin Concent 33g/dL (31-37) Red Cell Distribution Width 14.7% (11.5-14.5) Platelet Count 162x10^3/uL (140-400) Neutrophils (%) (Auto) 78% (31-73) Lymphocytes (%) (Auto) 16% (24-48) Monocytes (%) (Auto) 5% (0-9) Eosinophils (%) (Auto) 0% (0-3) Basophils (%) (Auto) 0% (0-3) Neutrophils # (Auto) 11.1x10^3uL (1.8-7.7) Lymphocytes # (Auto) 2.3x10^3/uL (1.0-4.8) Monocytes # (Auto) 0.8x10^3/uL (0.0-1.1) Eosinophils # (Auto) 0.0x10^3/uL (0.0-0.7) Basophils # (Auto) 0.0x10^3/uL (0.0-0.2) Sodium Level 138mmol/L (136-145) Potassium Level 3.5mmol/L (3.5-5.1) Chloride Level 107mmol/L (98-107) Carbon Dioxide Level 24mmol/L (21-32) Anion Gap 7 (6-14) Blood Urea Nitrogen 17mg/dL (8-26) Creatinine 0.7mg/dL (0.7-1.3) Estimated GFR (Cockcroft-Gault) 107.7 Glucose Level 153mg/dL (70-99) Calcium Level 8.3mg/dL (8.5-10.1) Test 10/03/16 11:20 10/03/16 16:39 10/03/16 20:10 10/04/16 07:20 Glucose (Fingerstick) 197mg/dL (70-99) 162mg/dL (70-99) 195mg/dL (70-99) White Blood Count 9.6x10^3/uL (4.0-11.0) Red Blood Count 3.81x10^6/uL (4.30-5.70) Hemoglobin 11.6g/dL (13.0-17.5) Hematocrit 34.5% (39.0-53.0) Mean Corpuscular Volume 91fL (79-100) Mean Corpuscular Hemoglobin 30pg (25-35) Mean Corpuscular Hemoglobin Concent 34g/dL (31-37) Red Cell Distribution Width 14.6% (11.5-14.5) Platelet Count 183x10^3/uL (140-400) Neutrophils (%) (Auto) 52% (31-73) Lymphocytes (%) (Auto) 38% (24-48) Monocytes (%) (Auto) 7% (0-9) Eosinophils (%) (Auto) 3% (0-3) Basophils (%) (Auto) 0% (0-3) Neutrophils # (Auto) 5.0x10^3uL (1.8-7.7) Lymphocytes # (Auto) 3.7x10^3/uL (1.0-4.8) Monocytes # (Auto) 0.7x10^3/uL (0.0-1.1) Eosinophils # (Auto) 0.2x10^3/uL (0.0-0.7) Basophils # (Auto) 0.0x10^3/uL (0.0-0.2) Sodium Level 142mmol/L (136-145) Potassium Level 3.5mmol/L (3.5-5.1) Chloride Level 109mmol/L (98-107) Carbon Dioxide Level 24mmol/L (21-32) Anion Gap 9 (6-14) Blood Urea Nitrogen 13mg/dL (8-26) Creatinine 0.7mg/dL (0.7-1.3) Estimated GFR (Cockcroft-Gault) 107.7 Glucose Level 78mg/dL (70-99) Calcium Level 8.1mg/dL (8.5-10.1) Test 10/04/16 07:59 10/04/16 11:44 Glucose (Fingerstick) 81mg/dL (70-99) 151mg/dL (70-99) Laboratory Tests Test 10/03/16 16:39 10/03/16 20:10 10/04/16 07:20 10/04/16 07:59 Glucose (Fingerstick) 162mg/dL (70-99) 195mg/dL (70-99) 81mg/dL (70-99) White Blood Count 9.6x10^3/uL (4.0-11.0) Red Blood Count 3.81x10^6/uL (4.30-5.70) Hemoglobin 11.6g/dL (13.0-17.5) Hematocrit 34.5% (39.0-53.0) Mean Corpuscular Volume 91fL (79-100) Mean Corpuscular Hemoglobin 30pg (25-35) Mean Corpuscular Hemoglobin Concent 34g/dL (31-37) Red Cell Distribution Width 14.6% (11.5-14.5) Platelet Count 183x10^3/uL (140-400) Neutrophils (%) (Auto) 52% (31-73) Lymphocytes (%) (Auto) 38% (24-48) Monocytes (%) (Auto) 7% (0-9) Eosinophils (%) (Auto) 3% (0-3) Basophils (%) (Auto) 0% (0-3) Neutrophils # (Auto) 5.0x10^3uL (1.8-7.7) Lymphocytes # (Auto) 3.7x10^3/uL (1.0-4.8) Monocytes # (Auto) 0.7x10^3/uL (0.0-1.1) Eosinophils # (Auto) 0.2x10^3/uL (0.0-0.7) Basophils # (Auto) 0.0x10^3/uL (0.0-0.2) Sodium Level 142mmol/L (136-145) Potassium Level 3.5mmol/L (3.5-5.1) Chloride Level 109mmol/L (98-107) Carbon Dioxide Level 24mmol/L (21-32) Anion Gap 9 (6-14) Blood Urea Nitrogen 13mg/dL (8-26) Creatinine 0.7mg/dL (0.7-1.3) Estimated GFR (Cockcroft-Gault) 107.7 Glucose Level 78mg/dL (70-99) Calcium Level 8.1mg/dL (8.5-10.1) Test 10/04/16 11:44 Glucose (Fingerstick) 151mg/dL (70-99) Microbiology 10/01/16 Blood Culture - Preliminary, Resulted NO GROWTH AFTER 2 DAYS 10/01/16 Anaerobic/Aerobic Culture - Preliminary, Resulted 10/01/16 Anaerobic Culture Result 1 ([facility]) - Preliminary, Resulted 10/01/16 Aerobic Culture - Preliminary, Resulted 10/01/16 Aerobic Culture Result 1 ([facility]) - Preliminary, Resulted 10/01/16 Anaerobic/Aerobic Culture, Resulted Pending 10/01/16 Anaerobic Culture Result 1 ([facility]), Resulted Pending 10/01/16 Aerobic Culture - Preliminary, Resulted 10/01/16 Aerobic Culture Result 1 ([facility]) - Preliminary, Resulted Medications Current Medications Aspirin (Children'S Aspirin) 324 mg 1X ONCE PO Last administered on at 20:29; Start 09/30/16 at 20:45; Stop 09/30/16 at 20:46; Status DC Nitroglycerin (Nitrostat) 0.4 mg PRN Q5MIN PRN SL CP RATING > 1/10 Last administered on 09/30/16at 20:33; Start 09/30/16 at 20:30; Stop 09/30/16 at 23 :59; Status DC Morphine Sulfate 4 mg 1X ONCE IV Last administered on 09/30/16at 21:20; Start 09/30/16 at 21:15; Stop 09/30/16 at 21:16; Status DC Ondansetron HCl (Zofran) 4 mg PRN Q8HRS PRN IV NAUSEA/VOMITING; Start at 21:45; Stop 10/01/16 at 14:11; Status DC Morphine Sulfate 4 mg PRN Q2HR PRN IV PAIN Last administered on 10/01/16at 15: 05; Start 09/30/16 at 21:45; Stop 10/01/16 at 21:44; Status DC Acetaminophen (Tylenol) 650 mg PRN Q4HRS PRN PO FEVER Last administered on at 02:53; Start 09/30/16 at 21:45; Stop 10/01/16 at 14:11; Status DC Nitroglycerin (Nitrostat) 0.4 mg PRN Q5MIN PRN SL CHEST PAIN; Start 09/30/16 at 21:45; Stop 10/01/16 at 21:44; Status DC Insulin Aspart (Novolog) 0-7 UNITS TIDWMEALS SQ Last administered on at 08:57; Start 10/01/16 at 08:00; Stop 10/01/16 at 09:35; Status DC Dextrose 12.5 gm PRN Q15MIN PRN IV SEE COMMENTS; Start 09/30/16 at 21:45 Acetaminophen (Tylenol) 325 mg PRN Q6HRS PRN PO MILD PAIN / TEMP; Start at 09:30 Acetaminophen/ Hydrocodone Bitart (Lortab 5/325) 1 tab PRN Q6HRS PRN PO MODERATE TO SEVERE PAIN Last administered on 10/03/16t 21:12; Start 10/01/16 at 09:30 Hydralazine HCl (Apresoline) 10 mg PRN Q4HRS PRN IVP ELEVATED BP, SEE COMMENTS ; Start 10/01/16 at 09:30 Ondansetron HCl (Zofran) 4 mg PRN Q8HRS PRN IV NAUSEA/VOMITING 1ST CHOICE; Start 10/01/16 at 09:30; Stop 10/02/16 at 07:58; Status DC Albuterol Sulfate (Ventolin Neb Soln) 2.5 mg PRN Q4HRS PRN NEB SHORTNESS OF BREATH; Start 10/01/16 at 09:30 Levothyroxine Sodium (Synthroid) 50 mcg DAILY07 PO ; Start 10/01/16 at 10:00; Stop 10/02/16 at 09:47; Status DC Metformin HCl (Glucophage) 1,000 mg [id number] PO Last administered on 08:06; Start 10/01/16 at 10:00 Insulin Detemir (Levemir) 10 units QHS SQ Last administered on 10/01/16at 21:57 ; Start 10/01/16 at 21:00; Stop 10/02/16 at 07:57; Status DC Insulin Aspart (Novolog) 0-9 UNITS TIDWMEALS SQ Last administered on 10/03/16 17:40; Start 10/01/16 at 12:00 Dextrose 12.5 gm 12.5 gm PRN Q15MIN PRN IV SEE COMMENTS; Start 10/01/16 at 09: 30; Status UNV Sodium Chloride (Iv Sodium Chloride 0.9% 1000ml Bag) 1,000 ml @ 75 mls/hr 1X ONCE IV ; Start 10/01/16 at 11:45; Stop 10/01/16 at 14:11; Status DC Pantoprazole Sodium (Protonix) 40 mg DAILYAC PO ; Start 10/01/16 at 12:00; Stop 10/02/16 at 09:47; Status DC Iohexol 75 ml 75 ml 1X ONCE IV Last administered on 10/01/16at 12:21; Start 10/01/16 at 12:15; Stop 10/01/16 at 12:16; Status DC Sodium Chloride 1,000 ml @ 75 mls/hr [id number] IV Last administered on 10/04/16 03:20; Start 10/01/16 at 14:15 Piperacillin Sod/ Tazobactam Sod/ Sodium Chloride (Zosyn/Iv Sodium Chloride 0.9 % 50ml) 50 ml @ 100 mls/hr Q6HRS IV Last administered on 10/04/16t 05:49; Start 10/01/16 at 18:00; Stop 10/04/16 at 10:27; Status DC Fentanyl Citrate (Fentanyl 2ml Vial) 50 mcg PRN Q5MIN PRN IV Acute Pain; Start 10/01/16 at 16:00; Stop 10/01/16 at 23:00; Status DC Morphine Sulfate 4 mg PRN Q10MIN PRN IV Moderate Pain; Start 10/01/16 at 16:00 ; Stop 10/01/16 at 23:00; Status DC Hydromorphone HCl (Dilaudid) 0.4 mg PRN Q10MIN PRN IV Moderate to severe pain; Start 10/01/16 at 16:00; Stop 10/01/16 at 23:00; Status DC Prochlorperazine Edisylate (Compazine) 5 mg PRN Q6HRS PRN IV Nausea/Vomiting, 1st Choice; Start 10/01/16 at 16:00; Stop 10/01/16 at 23:00; Status DC Diphenhydramine HCl (Benadryl) 12.5 mg PRN Q2HR PRN IV ITCHING; Start at 16:00; Stop 10/01/16 at 23:00; Status DC Midazolam HCl (Versed) 2 mg PRN 1X PRN IV PRIOR TO PROCEDURE; Start 10/01/16 at 16:00; Stop 10/01/16 at 23:00; Status DC Midazolam HCl (Versed) 1 mg PRN 1X PRN IV PRIOR TO PROCEDURE; Start 10/01/16 at 16:00; Stop 10/01/16 at 23:00; Status DC Fentanyl Citrate (Fentanyl 2ml Vial) 25 mcg PRN Q5MIN PRN IV X 2 DOSES FOR PAIN ; Start 10/01/16 at 16:00; Stop 10/01/16 at 23:00; Status DC Fentanyl Citrate 50 mcg 50 mcg PRN Q5MIN PRN IV X 2 DOSES FOR PAIN; Start at 16:00; Stop 10/01/16 at 23:00; Status DC Lactated Ringer's (Iv Lactated Ringers) 1,000 ml @ 125 mls/hr Q8H IV ; Start 10/01/16 at 15:49; Stop 10/01/16 at 20:43; Status DC Lidocaine HCl 2 ml 1X PRN PRN ID IV START; Start 10/01/16 at 16:00; Stop at 23:00; Status DC Cellulose 1 each STK-MED ONCE .ROUTE Last administered on 10/01/16at 19:19; Start 10/01/16 at 16:09; Stop 10/01/16 at 16:10; Status DC Bupivacaine HCl/ Epinephrine Bitart (Marcaine-Epi 0.5%-[id number]) 50 ml STK-MED ONCE .ROUTE Last administered on 10/01/16at 18:04; Start 10/01/16 at 16:10; Stop 10/01/16 at 16:11; Status DC Glucagon (Glucagen) 1 mg STK-MED ONCE .ROUTE ; Start 10/01/16 at 16:10; Stop 10/01/16 at 16:11; Status DC Iohexol 50 ml 50 ml STK-MED ONCE .ROUTE Last administered on 10/01/16at 18:04; Start 10/01/16 at 16:10; Stop 10/01/16 at 16:11; Status DC Acetaminophen (Ofirmev) 100 ml @ 400 mls/hr 1X PACU PRN IV FEVER Last administered on 10/01/16at 17:37; Start 10/01/16 at 17:30; Stop 10/01/16 at 23 :00; Status DC Rocuronium [place] (Zemuron) 50 mg STK-MED ONCE .ROUTE ; Start 10/01/16 at 17: 54; Stop 10/01/16 at 17:55; Status DC Lidocaine HCl 100 mg STK-MED ONCE .ROUTE ; Start 10/01/16 at 17:54; Stop 10/01 at 17:55; Status DC Fentanyl Citrate 100 mcg 100 mcg STK-MED ONCE .ROUTE ; Start 10/01/16 at 17:54 ; Stop 10/01/16 at 17:55; Status DC Propofol (Diprivan) 20 ml @ As Directed STK-MED ONCE IV ; Start 10/01/16 at 17: 58; Stop 12/30/16 at 17:59; Status DC Dexamethasone Sodium Phosphate (Decadron) 20 mg STK-MED ONCE .ROUTE ; Start at 18:20; Stop 10/01/16 at 18:21; Status DC Desflurane (Suprane) 30 ml STK-MED ONCE IH ; Start 10/01/16 at 18:20; Stop at 18:21; Status DC Esmolol HCl (Brevibloc) 100 mg STK-MED ONCE IV ; Start 10/01/16 at 18:55; Stop 10/01/16 at 18:56; Status DC Fentanyl Citrate (Fentanyl 2ml Vial) 100 mcg STK-MED ONCE .ROUTE ; Start at 19:35; Stop 10/01/16 at 19:36; Status DC Insulin Detemir (Levemir) 15 units QHS SQ Last administered on 10/03/16 20:18; Start 10/02/16 at 21:00 Ondansetron HCl (Zofran) 4 mg PRN Q6HRS PRN IV NAUSEA/VOMITING 1ST CHOICE; Start 10/02/16 at 09:30 Pantoprazole Sodium 40 mg 40 mg DAILYAC IVP Last administered on 10/04/16 08:06 ; Start 10/02/16 at 09:45 Levothyroxine Sodium/Sodium Chloride (Synthroid/Iv Sodium Chloride 0.9% 50ml) 5 ml @ 100 mls/hr DAILY IVP Last administered on 10/04/16 10:23; Start 10/02/16 at 09:45 Morphine Sulfate 2 mg PRN Q2HR PRN IV PAIN Last administered on 10/02/16at 10: 23; Start 10/02/16 at 10:15 Enoxaparin Sodium (Lovenox 40mg Syringe) 40 mg Q24H SQ Last administered on 10/04 13:57; Start 10/03/16 at 14:00 Amoxicillin/ Clavulanate Potassium (Augmentin 875/ 125mg) 1 tab BID PO Last administered on 10/04/16 10:36; Start 10/04/16 at 10:30 Active Scripts Active Reported Metformin Hcl 1,000 Mg Tablet Synthroid (Levothyroxine Sodium) 50 Mcg Tablet Lantus Solostar (Insulin Glargine,Hum.rec.anlog) 100 Unit/1 Ml Insuln.pen Novolog Flexpen (Insulin Aspart) 100 Unit/1 Ml Insuln.pen Vitals/I & O Vital Sign - Last 24 Hours 10/03/16 10/03/16 10/03/16 10/03/16 15:27 19:00 20:16 21:12 Temp 97.7 97.7 97.7 97.7 Pulse 81 84 Resp 18 20 B/P 135/78 135/74 Pulse Ox 93 93 93 O2 Delivery Room Air Room Air Room Air Room Air O2 Flow Rate 4.0 10/03/16 10/03/16 10/04/16 10/04/16 22:15 23:00 03:12 07:00 Temp 97.6 97.6 97.9 97.6 97.6 97.9 Pulse 73 68 73 Resp 20 20 20 B/P 142/82 126/82 132/90 Pulse Ox 93 93 93 94 O2 Delivery Room Air Room Air Room Air Room Air O2 Flow Rate 4.0 10/04/16 10/04/16 08:00 10:51 Temp 98.0 98.0 Pulse 80 Resp 20 B/P 129/86 Pulse Ox 93 O2 Delivery Room Air Room Air Intake and Output 10/03/16 10/03/16 10/04/16 15:00 23:00 07:00 Intake Total 1600 ml 250 ml Output Total 200 ml 1405 ml 400 ml Balance -200 ml 195 ml -150 ml NADINE ORR MD Oct 04, 2016 14:08
[2016-10-04 19:00] VITALS: BP 132/84
--- NOTE | 2016-10-04 21:09 | PDOC ---
Provider Note Provider Note SURG seen earlier today feeling well home soon TOBI CHAWLA MD Oct 04, 2016 21:09
[2016-10-04] MEDS: INSULIN DETEMIR 300 UNITS/3 ML INSULN.PEN. SQ SCH (21:39)
[2016-10-04 23:00] VITALS: BP 149/95
[2016-10-05] MEDS: MORPHINE SULFATE 2 MG/ML DISP.SYRIN. IV PRN (00:20)
[2016-10-05 03:00] VITALS: BP 130/81
[2016-10-05 04:13] LABS: BASO # 0.1 x10^3/uL (0.0-0.2); BASO % 1 % (0-3); EOS % 3 % (0-3); HEMATOCRIT 35.9 % (39.0-53.0); LYMPH # 3.3 x10^3/uL (1.0-4.8); LYMPH % 37 % (24-48); MEAN CORPUSCULAR HEMOGLOBIN 30 pg (25-35); MEAN CORPUSCULAR HGB CONC 34 g/dL (31-37); MEAN CORPUSCULAR VOLUME 90 fL (79-100); MONO % 8 % (0-9); NEUT % 51 % (31-73); PLATELET COUNT 198 x10^3/uL (140-400); RED BLOOD COUNT 4.01 x10^6/uL (4.30-5.70); RED CELL DISTRIBUTION WIDTH 14.4 % (11.5-14.5); WHITE BLOOD COUNT 8.7 x10^3/uL (4.0-11.0)
[2016-10-05 04:32] LABS: CALCIUM 8.4 mg/dL (8.5-10.1); CREATININE 0.7 mg/dL (0.7-1.3); GFR 107.7; POTASSIUM 3.7 mmol/L (3.5-5.1)
[2016-10-05] MEDS ORDERED: LEVOTHYROXINE 50 MCG TABLET PO SCH (07:00)
[2016-10-05] MEDS ORDERED: PANTOPRAZOLE 40 MG TABLET. PO SCH (07:30)
[2016-10-05 07:44] VITALS: BP 140/88
[2016-10-05] MEDS: INSULIN ASPART 300 UNITS/3 ML INSULN.PEN SQ SCH ×2 (08:00→12:00)
[2016-10-05] MEDS: AMOXICILLIN/K CLAV 875/125MG TABLET. PO SCH (09:02)
[2016-10-05] MEDS: METFORMIN 1,000 MG TABLET PO SCH (09:02)
--- NOTE | 2016-10-05 10:46 | PDOC ---
Infectious Disease Note Subjective Subjective c/o min pain at drain site, otherwise feeling ok + BM Diet advancing ROS ROS GEN: Denies fevers, chills, sweats HEENT: Denies blurred vision, sore throat CV: Denies chest pain RESP: Denies shortness of air, cough GI: Denies n/v/d NEURO: Denies confusion, dizziness MSK: Denies weakness, joint pain/swelling Vital Sign Vital Signs Vital Signs Date Time Temp Pulse Resp B/P Pulse Ox O2 Delivery O2 Flow Rate FiO2 10/05/16 07:44 98.4 76 18 140/88 92 Room Air 98.4 10/05/16 00:20 4.0 Physical Exam PHYSICAL EXAM GENERAL: NAD, Alert. In chair HEENT: PERRL, OC/OP- clear NECK: Supple, no JVD, no LN LUNGS: Clear HEART: S1S2, no gallop, no murmur ABD: Soft, NT, no organomegaly, no rebound. Drain with serosanginous - min fluid EXT: No edema, no cyanosis RECREATION FACILITIES SUPERVISOR: Alert, oriented x 3, no focal neurologic deficit SKIN: No rash IV: ok Labs Lab Laboratory Tests Test 10/04/16 11:44 10/04/16 17:05 10/04/16 21:29 10/05/16 03:55 Glucose (Fingerstick) 151mg/dL (70-99) 180mg/dL (70-99) 189mg/dL (70-99) White Blood Count 8.7x10^3/uL (4.0-11.0) Red Blood Count 4.01x10^6/uL (4.30-5.70) Hemoglobin 12.0g/dL (13.0-17.5) Hematocrit 35.9% (39.0-53.0) Mean Corpuscular Volume 90fL (79-100) Mean Corpuscular Hemoglobin 30pg (25-35) Mean Corpuscular Hemoglobin Concent 34g/dL (31-37) Red Cell Distribution Width 14.4% (11.5-14.5) Platelet Count 198x10^3/uL (140-400) Neutrophils (%) (Auto) 51% (31-73) Lymphocytes (%) (Auto) 37% (24-48) Monocytes (%) (Auto) 8% (0-9) Eosinophils (%) (Auto) 3% (0-3) Basophils (%) (Auto) 1% (0-3) Neutrophils # (Auto) 4.4x10^3uL (1.8-7.7) Lymphocytes # (Auto) 3.3x10^3/uL (1.0-4.8) Monocytes # (Auto) 0.7x10^3/uL (0.0-1.1) Eosinophils # (Auto) 0.3x10^3/uL (0.0-0.7) Basophils # (Auto) 0.1x10^3/uL (0.0-0.2) Sodium Level 142mmol/L (136-145) Potassium Level 3.7mmol/L (3.5-5.1) Chloride Level 108mmol/L (98-107) Carbon Dioxide Level 23mmol/L (21-32) Anion Gap 11 (6-14) Blood Urea Nitrogen 12mg/dL (8-26) Creatinine 0.7mg/dL (0.7-1.3) Estimated GFR (Cockcroft-Gault) 107.7 Glucose Level 118mg/dL (70-99) Calcium Level 8.4mg/dL (8.5-10.1) Test 10/05/16 07:37 Glucose (Fingerstick) 118mg/dL (70-99) Objective Assessment Fever - better Leukocytosis - + post op -Steroids 10/01 Acute Encephalopathy- improved Acute Cholecystitis- gangrenous, s/p cholecystomy, 10/01 Clostridium on gram stain but cults neg DM Plan Plan of Care ok to transfer or d/c homw with Augmentin for 7 days ID to sign off RHONDA DA SILVA MD Oct 05, 2016 10:46
[2016-10-05 11:21] VITALS: BP 133/86
--- NOTE | 2016-10-05 11:45 | PDOC ---
SURGICAL PROGRESS NOTE Subjective no new c/o would like to have some real food Vital Signs Vital Signs Date Time Temp Pulse Resp B/P Pulse Ox O2 Delivery O2 Flow Rate FiO2 10/05/16 11:21 98.4 99 18 133/86 93 Room Air 98.4 10/05/16 00:20 4.0 I&O Intake and Output 10/05/16 07:00 Intake Total 1818 ml Output Total 2150 ml Balance -332 ml Intake Oral 1150 ml IV Total 668 ml Output Urine Total 2100 ml Drainage Total 50 ml # Bowel Movements 1 PATIENT HAS A RIZO: No General: Alert, No acute distress Abdomen: Other (small amount of serosanguineous output from ABBY) Labs Laboratory Tests Test 10/03/16 16:39 10/03/16 20:10 10/04/16 07:20 10/04/16 07:59 Glucose (Fingerstick) 162mg/dL (70-99) 195mg/dL (70-99) 81mg/dL (70-99) White Blood Count 9.6x10^3/uL (4.0-11.0) Red Blood Count 3.81x10^6/uL (4.30-5.70) Hemoglobin 11.6g/dL (13.0-17.5) Hematocrit 34.5% (39.0-53.0) Mean Corpuscular Volume 91fL (79-100) Mean Corpuscular Hemoglobin 30pg (25-35) Mean Corpuscular Hemoglobin Concent 34g/dL (31-37) Red Cell Distribution Width 14.6% (11.5-14.5) Platelet Count 183x10^3/uL (140-400) Neutrophils (%) (Auto) 52% (31-73) Lymphocytes (%) (Auto) 38% (24-48) Monocytes (%) (Auto) 7% (0-9) Eosinophils (%) (Auto) 3% (0-3) Basophils (%) (Auto) 0% (0-3) Neutrophils # (Auto) 5.0x10^3uL (1.8-7.7) Lymphocytes # (Auto) 3.7x10^3/uL (1.0-4.8) Monocytes # (Auto) 0.7x10^3/uL (0.0-1.1) Eosinophils # (Auto) 0.2x10^3/uL (0.0-0.7) Basophils # (Auto) 0.0x10^3/uL (0.0-0.2) Sodium Level 142mmol/L (136-145) Potassium Level 3.5mmol/L (3.5-5.1) Chloride Level 109mmol/L (98-107) Carbon Dioxide Level 24mmol/L (21-32) Anion Gap 9 (6-14) Blood Urea Nitrogen 13mg/dL (8-26) Creatinine 0.7mg/dL (0.7-1.3) Estimated GFR (Cockcroft-Gault) 107.7 Glucose Level 78mg/dL (70-99) Calcium Level 8.1mg/dL (8.5-10.1) Test 10/04/16 11:44 10/04/16 17:05 10/04/16 21:29 10/05/16 03:55 Glucose (Fingerstick) 151mg/dL (70-99) 180mg/dL (70-99) 189mg/dL (70-99) White Blood Count 8.7x10^3/uL (4.0-11.0) Red Blood Count 4.01x10^6/uL (4.30-5.70) Hemoglobin 12.0g/dL (13.0-17.5) Hematocrit 35.9% (39.0-53.0) Mean Corpuscular Volume 90fL (79-100) Mean Corpuscular Hemoglobin 30pg (25-35) Mean Corpuscular Hemoglobin Concent 34g/dL (31-37) Red Cell Distribution Width 14.4% (11.5-14.5) Platelet Count 198x10^3/uL (140-400) Neutrophils (%) (Auto) 51% (31-73) Lymphocytes (%) (Auto) 37% (24-48) Monocytes (%) (Auto) 8% (0-9) Eosinophils (%) (Auto) 3% (0-3) Basophils (%) (Auto) 1% (0-3) Neutrophils # (Auto) 4.4x10^3uL (1.8-7.7) Lymphocytes # (Auto) 3.3x10^3/uL (1.0-4.8) Monocytes # (Auto) 0.7x10^3/uL (0.0-1.1) Eosinophils # (Auto) 0.3x10^3/uL (0.0-0.7) Basophils # (Auto) 0.1x10^3/uL (0.0-0.2) Sodium Level 142mmol/L (136-145) Potassium Level 3.7mmol/L (3.5-5.1) Chloride Level 108mmol/L (98-107) Carbon Dioxide Level 23mmol/L (21-32) Anion Gap 11 (6-14) Blood Urea Nitrogen 12mg/dL (8-26) Creatinine 0.7mg/dL (0.7-1.3) Estimated GFR (Cockcroft-Gault) 107.7 Glucose Level 118mg/dL (70-99) Calcium Level 8.4mg/dL (8.5-10.1) Test 10/05/16 07:37 Glucose (Fingerstick) 118mg/dL (70-99) Laboratory Tests Test 10/04/16 11:44 10/04/16 17:05 10/04/16 21:29 10/05/16 03:55 Glucose (Fingerstick) 151mg/dL (70-99) 180mg/dL (70-99) 189mg/dL (70-99) White Blood Count 8.7x10^3/uL (4.0-11.0) Red Blood Count 4.01x10^6/uL (4.30-5.70) Hemoglobin 12.0g/dL (13.0-17.5) Hematocrit 35.9% (39.0-53.0) Mean Corpuscular Volume 90fL (79-100) Mean Corpuscular Hemoglobin 30pg (25-35) Mean Corpuscular Hemoglobin Concent 34g/dL (31-37) Red Cell Distribution Width 14.4% (11.5-14.5) Platelet Count 198x10^3/uL (140-400) Neutrophils (%) (Auto) 51% (31-73) Lymphocytes (%) (Auto) 37% (24-48) Monocytes (%) (Auto) 8% (0-9) Eosinophils (%) (Auto) 3% (0-3) Basophils (%) (Auto) 1% (0-3) Neutrophils # (Auto) 4.4x10^3uL (1.8-7.7) Lymphocytes # (Auto) 3.3x10^3/uL (1.0-4.8) Monocytes # (Auto) 0.7x10^3/uL (0.0-1.1) Eosinophils # (Auto) 0.3x10^3/uL (0.0-0.7) Basophils # (Auto) 0.1x10^3/uL (0.0-0.2) Sodium Level 142mmol/L (136-145) Potassium Level 3.7mmol/L (3.5-5.1) Chloride Level 108mmol/L (98-107) Carbon Dioxide Level 23mmol/L (21-32) Anion Gap 11 (6-14) Blood Urea Nitrogen 12mg/dL (8-26) Creatinine 0.7mg/dL (0.7-1.3) Estimated GFR (Cockcroft-Gault) 107.7 Glucose Level 118mg/dL (70-99) Calcium Level 8.4mg/dL (8.5-10.1) Test 10/05/16 07:37 Glucose (Fingerstick) 118mg/dL (70-99) Problem List Problems Medical Problems: (1) Chest pain Status: Acute (2) Cholecystitis Status: Acute (3) SOB (shortness of breath) Status: Acute Assessment/Plan improved home from my standpoint d/c ABBY post op office visit Problems: TOBI CHAWLA MD Oct 05, 2016 11:45
[2016-10-05] MEDS ORDERED: AMOX1TAB11 PO (12:40)
[2016-10-05] MEDS ORDERED: HYDR-2666 PO (12:40)
--- NOTE | 2016-10-05 12:41 | PDOC3 ---
Discharge Summary [facility] Date of Admission: Sep 30, 2016 Discharge Date: Oct 05, 2016 Admitting Diagnosis 1. s.p lap ofe for acute cholecystitis 10/01, gangreous 2. 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 Fevers resolved 4. SIRS no sepsis 5. Geriatric 6. 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 Problems: Final Diagnosis 1. s.p lap ofe for acute cholecystitis 10/01, gangreous 2. 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 Fevers resolved 4. SIRS no sepsis 5. Geriatric 6. 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 CONSULTS sx, id card Brief Hospital Course Mr. Sullivan is a 81 old M , independent, comes for chest pain, abd pain, was found have gangreous cholecystitis in CT, lap cholecystectomy. Pt feels better, with ABBY drainage, on Zosyn, dc home with augmentin for 7ds, and ABBY removed. advance to GI soft diet. HH. dc time 35min General: Alert, Cooperative, No acute distress Heart: Regular rate, Normal S1, Normal S2, Other (S3. Blowing 2/6 systolic murmur over apex ) Lungs: Clear Abdomen: Normal bowel sounds, Soft, Other (small amount of serosanguineous output in ABBY drain, MILD tenderness) Extremities: No clubbing, No cyanosis, No edema Problems: Disposition home CONDITION AT DISCHARGE: Improved Diet gi soft Miscellaneous Medications Insulin Aspart (Novolog Flexpen) (Reported) Insulin Glargine,Hum.rec.anlog (Lantus Solostar) (Reported) Levothyroxine Sodium (Synthroid) (Reported) Metformin Hcl (Metformin Hcl) (Reported) Follow Up sx in 2 weeks REGGIE GONZÁLES MD Oct 05, 2016 12:41
[2016-10-05 15:00] VITALS: BP 130/80
[2016-10-05] MEDS: ENOXAPARIN 40 MG/0.4 ML DISP.SYRIN. SQ SCH (15:19)
--- NOTE | 2016-10-05 17:21 | PDOC ---
PROGRESS NOTES Assessment Assessment IMPRESSION: Metabolic encephalopathy. Confusion. Fever Cholecystitis, emphysematous. Bilateral basilar infiltrates, left > right. Colonic diverticulosis. Hiatal hernia. DM Diabetic peripheral neuropathy. ET RECOMMENDATIONS/PLAN: Treat medical diseases. Keep good hydration. OT/PT. FU with PCP and GI. SUBJECTIVE: Stating doing fine on 10/05/2016. OBJECTIVE: Symptoms improved. PAST MEDICAL AND SURGICAL HISTORY: Please see H&P ALLERGY: Reviewed. MEDICATIONS: Refer to MAR REVIEW OF SYSTEMS: Constitutional: No malnutrition, weight loss, cachexia. Head: No traumatic brain or head injury. Skin: No edema, or rash. Ear: No infection, tinnitus. Eyes: No vision loss, or diplopia. Nose: No bleeding or purulent discharges. Hearing: No hearing loss. Neck: No injury. Cardiac: No IL, arrhythmia Pulmonary: Infiltrate. GI: See above. Urinary/genital: No dysuria, hematuria. Endocrine: Diabetes Mellitus. Skeletomuscular: No muscular atrophy, deformity. Neurological: see HP. Psychiatric: Denies drug use/abuse. Otherwise, not [id number] review of systems. PHYSICAL EXAMINATION: General appearance in mild subacute distress. HEENT: Normocephalic and nontraumatic. Eyes, nose, ears, and throat are unremarkable. Hearing decrease. Neck is supple. No lymphadenopathy. No bruits are heard over the carotid artery. No Crepitus. Cardiovascular: S1, S2, regular rate and rhythm. Pulmonary: Relative clear to auscultation bilaterally. Abdomen: Bowel sounds are positive. Extremities: No rash, lesions, or edema. No restriction of range of motion NEUROLOGICAL EXAMINATION: Awake. Oriented to time, place and person. PERRL. EOMI. CN: no focal findings. Muscle tone: within normal. Muscle strength: 5- DTR: 2 UE, 0-1 at knee Plantar reflex: Flexor response bilaterally Gait: At baseline normal. Sensory exam: no acute abnormal findings. No acute cerebellar signs elicited. F-T-N test fine. Objective Objective Vital Signs Date Time Temp Pulse Resp B/P Pulse Ox O2 Delivery O2 Flow Rate FiO2 10/05/16 15:00 98.4 77 18 130/80 93 Room Air 98.4 10/05/16 00:20 4.0 Intake and Output 10/05/16 07:00 Intake Total 1818 ml Output Total 2150 ml Balance -332 ml Intake Oral 1150 ml IV Total 668 ml Output Urine Total 2100 ml Drainage Total 50 ml # Bowel Movements 1 Vitals Signs Vitals VS - Last 72 Hours, by Label Date Time Temp Pulse Resp B/P Pulse Ox O2 Delivery O2 Flow Rate FiO2 10/05/16 15:00 98.4 77 18 130/80 93 Room Air 98.4 10/05/16 11:21 98.4 99 18 133/86 93 Room Air 98.4 10/05/16 08:00 Room Air 10/05/16 07:44 98.4 76 18 140/88 92 Room Air 98.4 10/05/16 03:00 97.9 71 18 130/81 95 Room Air 97.9 10/05/16 02:08 Room Air 10/05/16 00:20 Room Air 4.0 10/04/16 23:00 97.9 78 19 149/95 95 Room Air 97.9 10/04/16 20:00 Room Air 10/04/16 19:00 98.2 94 18 132/84 94 Room Air 98.2 10/04/16 10:51 98.0 80 20 129/86 93 Room Air 98.0 10/04/16 08:00 Room Air 10/04/16 07:00 97.9 73 20 132/90 94 Room Air 97.9 Laboratory Laboratory Laboratory Tests Test 10/04/16 21:29 10/05/16 03:55 10/05/16 07:37 10/05/16 11:42 Glucose (Fingerstick) 189mg/dL (70-99) 118mg/dL (70-99) 152mg/dL (70-99) White Blood Count 8.7x10^3/uL (4.0-11.0) Red Blood Count 4.01x10^6/uL (4.30-5.70) Hemoglobin 12.0g/dL (13.0-17.5) Hematocrit 35.9% (39.0-53.0) Mean Corpuscular Volume 90fL (79-100) Mean Corpuscular Hemoglobin 30pg (25-35) Mean Corpuscular Hemoglobin Concent 34g/dL (31-37) Red Cell Distribution Width 14.4% (11.5-14.5) Platelet Count 198x10^3/uL (140-400) Neutrophils (%) (Auto) 51% (31-73) Lymphocytes (%) (Auto) 37% (24-48) Monocytes (%) (Auto) 8% (0-9) Eosinophils (%) (Auto) 3% (0-3) Basophils (%) (Auto) 1% (0-3) Neutrophils # (Auto) 4.4x10^3uL (1.8-7.7) Lymphocytes # (Auto) 3.3x10^3/uL (1.0-4.8) Monocytes # (Auto) 0.7x10^3/uL (0.0-1.1) Eosinophils # (Auto) 0.3x10^3/uL (0.0-0.7) Basophils # (Auto) 0.1x10^3/uL (0.0-0.2) Sodium Level 142mmol/L (136-145) Potassium Level 3.7mmol/L (3.5-5.1) Chloride Level 108mmol/L (98-107) Carbon Dioxide Level 23mmol/L (21-32) Anion Gap 11 (6-14) Blood Urea Nitrogen 12mg/dL (8-26) Creatinine 0.7mg/dL (0.7-1.3) Estimated GFR (Cockcroft-Gault) 107.7 Glucose Level 118mg/dL (70-99) Calcium Level 8.4mg/dL (8.5-10.1) Microbiology 10/01/16 Blood Culture - Preliminary, Resulted NO GROWTH AFTER 4 DAYS 10/01/16 Anaerobic/Aerobic Culture - Preliminary, Resulted 10/01/16 Anaerobic Culture Result 1 (CHIQUI) - Preliminary, Resulted 10/01/16 Aerobic Culture - Preliminary, Resulted 10/01/16 Aerobic Culture Result 1 (CHIQUI) - Preliminary, Resulted 10/01/16 Anaerobic/Aerobic Culture - Preliminary, Resulted 10/01/16 Anaerobic Culture Result 1 (CHIQUI) - Preliminary, Resulted 10/01/16 Aerobic Culture - Preliminary, Resulted 10/01/16 Aerobic Culture Result 1 (CHIQUI) - Preliminary, Resulted Medication Medications Current Medications Levothyroxine Sodium (Synthroid) 50 mcg DAILY07 PO Last administered on 09:01; Start 10/05/16 at 07:00 Pantoprazole Sodium (Protonix) 40 mg DAILYAC PO Last administered on 1/3/17at 09:02; Start 10/05/16 at 07:30 Comment Review of Relevant I have reviewed the following items olimpia (where applicable) has been applied. IAIN LEON MD Oct 05, 2016 17:21
--- NOTE | 2016-10-06 11:07 | PATHOLOGY ---
PATHOLOGY REPORT * * * * * * * * FINAL DIAGNOSIS: Gallbladder, laparoscopic cholecystectomy: - Cholelithiasis. - Acute gangrenous and chronic cholecystitis. COMMENT: There is no evidence of malignancy. (JPM:all; d/t: 10/06/2016) REPORT ELECTRONICALLY SIGNED BY: Benjamin Márquez M.D. DATE/TIME: 10/06/2016 11:07 * * * * * * * * GROSS PATHOLOGY: Received in formalin labeled "Eugenio Sullivan-gallbladder and contents," is a 9.7 x 4.8 x 3.3 cm, disrupted gallbladder with villegas, diffusely hemorrhagic, and wrinkled serosal surfaces with adhesions. Opening the gallbladder reveals dark brown, roughened, shaggy, and necrotic appearing mucosa and an average wall thickness of 0.4 cm. Multiple yellow-green to dark brown and multinodular calculi ranging from 0.2-0.8 cm in greatest dimension and present and no masses are noted grossly. Diesel Pile Driver Operator sections from the body and fundus are submitted along with the proximal margin in cassette A1. (TTL; 10/05/2016) INITIAL CPT CODE(S): A; 41072 Professional services performed [place] [address] Technical services performed by [employer] at [address] [place] [address], [facility] [address] [address]. SPECIMEN(S) RECEIVED: A.Gallbladder and contents CLINICAL HISTORY: Acute cholecystitis PATIENT: EUGENIO SULLIVAN /AGE: 12 1935 (Age: 81) PATIENT #: [id number] ALT CASE #: SPECIMEN COLLECTION DATE: 10/01/2016 SPECIMEN RECEIVED DATE: 10/05/2016 [facility] - [address] [place] [address] - PHONE: [phone] * * * END OF REPORT * * *
== END 2016-10-05 15:04 | disposition home or self-care (01) | DRG 417 ==
LOC: ER 20:02 → 5 SOUTH 21:38 → 1 WEST ICU 10-01 20:38 → 6 SOUTH 10-02 16:48
PROVIDERS: ADMIT Internal Medicine; ATTEND Internal Medicine
PROC: 0FT44ZZ Resection of Gallbladder, Percutaneous Endoscopic Approach (ICD-10-PCS; principal; 2016-10-01 17:00)
DX: K81.0 Acute cholecystitis (principal); G93.41 Metabolic encephalopathy; E11.52 Type 2 diabetes mellitus with diabetic peripheral angiopathy with gangrene; R65.10 Systemic inflammatory response syndrome (SIRS) of non-infectious origin without acute organ dysfunction; E03.9 Hypothyroidism, unspecified; E11.42 Type 2 diabetes mellitus with diabetic polyneuropathy; K57.30 Diverticulosis of large intestine without perforation or abscess without bleeding; M19.90 Unspecified osteoarthritis, unspecified site; K44.9 Diaphragmatic hernia without obstruction or gangrene; Z96.641 Presence of right artificial hip joint; Z96.659 Presence of unspecified artificial knee joint; Z79.4 Long term (current) use of insulin; Z82.49 Family history of ischemic heart disease and other diseases of the circulatory system; Z88.5 Allergy status to narcotic agent; Z90.49 Acquired absence of other specified parts of digestive tract; Z98.49 Cataract extraction status, unspecified eye; Z98.890 Other specified postprocedural states
CPT/HCPCS: 36415; 70450; 71020; 74177; 80048; 80076; 81001; 82947; 83690; 83880; 84484; 85007; 85027; 85610; 87040; 87071; 87075; 87205; 87641; 88304; 93005; 93306; 94250; 96374; C1782; C9113; J0131; J1100; J1610; J1650; J1815; J2270; J2543; J2704; J3010; J3490; J7030; Q9967; 99285-25

== ENCOUNTER → 2018-06-27 | Outpatient (CLI) | payer MEDICARE, BC ==
[~2018-06-27] MED LIST: AMOX1TAB11 PO; HYDR-2758 PO; INSU100I13; INSU100I17; IOHEXOL 240 MG/ML 50ML VIAL. PO ONE; IOHEXOL 300 MG/ML 100ML VIAL. IV ONE; LEVO50TA; METF10007
[2018-06-27 10:36] LABS: CREATININE 0.7 mg/dL (0.7-1.3); GFR 107.4
--- NOTE | 2018-06-27 16:31 | RAD ---
CT ABD PELV W/ORAL IV CONTRAST Indication: Chronic diarrhea. Exposure: One or more of the following individualized dose reduction techniques were utilized for this examination: 1. Automated exposure control 2. Adjustment of the mA and/or kV according to patient size 3. Use of iterative reconstruction technique. Comparison: October 01, 2016 Contrast: Intravenous contrast was given. Oral contrast was given. FINDINGS: Lower thorax: Emphysematous change in the lung bases. Small subpleural nodule at the anterior right lung base, series 2, image 7 measures 7 mm. This was probably present on the prior study. Coronary artery calcifications. Liver: Unremarkable Spleen: Unremarkable Pancreas: Unremarkable Adrenals: No evidence of mass. Kidneys: No obvious mass. Urinary tracts: No hydronephrosis. Gallbladder: Surgically absent Lymph nodes: Small retroperitoneal lymph nodes are identified in the aortocaval region largest measures 10 mm short axis. These appear similar to prior study. Vessels: * Aorta: Calcified and tortuous. Small displaced intimal calcifications at the infrarenal aorta, unchanged since the prior study may represent chronic dissection. * Major aortic branches: Calcified origins. * Portal venous: Patent GI tract: Moderate hiatal hernia. No evidence of bowel obstruction. Colonic diverticulosis. Moderate retained stool in the colon. Wall thickening of the ascending colon, mild, without much paracolonic inflammatory stranding. Appendix is not clearly visualized. Reproductive organs:No evidence of mass. Urinary bladder: Unremarkable. Peritoneum: No evidence of pneumoperitoneum. No free fluid. Abdominal wall:Unremarkable Spine: Severe degenerative spondylosis with stenosis. Postsurgical changes at the lower spine. Appearance and alignment is similar to the previous exam. Bones: Small subchondral lesion at the anterosuperior right femoral head, suspicious for a small focus of osteonecrosis. Mild degenerative changes at both hips. IMPRESSION: 1. Diverticulosis, particularly involving the sigmoid colon. 2. Mild wall thickening of the ascending colon, could be due to incomplete distention versus pathologic etiology such as nonspecific mild colitis. Note there is not much surrounding inflammatory type change. 3. Moderate constipation. 4. Small 7 mm pulmonary nodule in the anterior right lung base, probably present on the previous study. As per Fleischner Society criteria, CT chest follow-up in 6-12 months could be considered. 5. Right femoral head lesion, most compatible with osteonecrosis, appears similar to the prior study. Electronically signed by: Jg Basurto MD (06/27/2018 4:28 PM) [facility]
== END | disposition home or self-care (01) ==
LOC: CT 09:48
PROVIDERS: ATTEND Family Medicine
DX: K57.30 Diverticulosis of large intestine without perforation or abscess without bleeding (principal); K59.09 Other constipation; G57.21 Lesion of femoral nerve, right lower limb; M47.896 Other spondylosis, lumbar region; M48.061 Spinal stenosis, lumbar region without neurogenic claudication; I25.10 Atherosclerotic heart disease of native coronary artery without angina pectoris; R91.1 Solitary pulmonary nodule; E11.9 Type 2 diabetes mellitus without complications; M16.0 Bilateral primary osteoarthritis of hip; E03.9 Hypothyroidism, unspecified; Z79.4 Long term (current) use of insulin; Z90.49 Acquired absence of other specified parts of digestive tract; Z96.641 Presence of right artificial hip joint; Z88.5 Allergy status to narcotic agent; Z82.49 Family history of ischemic heart disease and other diseases of the circulatory system
CPT/HCPCS: 36415; 74177; 82565; 84520; Q9966; Q9967

== ENCOUNTER → 2018-08-03 | Outpatient (CLI) | payer MEDICARE, BC ==
[~2018-08-03] MED LIST changes: -IOHEXOL 240 MG/ML 50ML VIAL. PO ONE; -IOHEXOL 300 MG/ML 100ML VIAL. IV ONE
--- NOTE | 2018-08-03 14:51 | KCIC ---
MRI Lumbar Spine without contrast History: Lumbar facet osteoarthritis, low back pain for 6 months, previous surgery Technique: Multiplanar, multi sequential noncontrast MR imaging was performed of the lumbar spine. Contrast: None Comparison: None Findings: There are prominent superior and inferior Schmorl's nodes of L1. There is superior endplate concavity of L3, associated amorphous edema. There is also mild amorphous edema of the mid to inferior aspect of L1 extending about endplate. There is interbody fusion L4-5 at which there is interbody graft, also posterolateral fusion hardware L4-5 at which there are bilateral pedicle screws. Exam does not accurately evaluate integrity of hardware. There is advanced degenerative disc disease at L2-3 and L5-S1, to lesser degree at L1-L2. Conus terminates at L1-2. L1-L2: There is disc osteophyte complex and bulge. Spinal canal is adequate. There is mild facet hypertrophic change and buckling of the ligamentum flavum. Neural foramina are overall adequate. L2-L3: There is facet hypertrophic change. There is minimal disc osteophyte complex. Spinal canal is adequate. There is moderate to severe right and mild left neural foramina compromise. L3-L4: There is facet hypertrophic change. The spinal canal is adequate. Neural foramina are adequate. L4-L5: There has been posterior decompression. Spinal canal is widely patent. Neural foramina are adequate. L5-S1: There is minimal disc osteophyte complex. There is mild facet hypertrophic change. There is mild narrowing of the far lateral recesses from posteriorly greater on the left. There is some likely mild narrowing of the left neural foramen, somewhat limited evaluation due to artifact created by hardware, right neural foramen not significantly narrowed. Impression: 1. There is advanced degenerative disc disease L2-3 and L5-S1 and to lesser degree at L1-2. There is edema associated with the superior L2 vertebral body at which there is mild superior endplate concavity, could be due to more recent compression injury without osseous retropulsion although fairly mild edema present. There is also edema associated with inferior L1 Schmorl's node. 2. There is interbody fusion at L4-5 at which there is interbody graft, also posterolateral fusion hardware L4-5. 3. There is moderate to severe narrowing of the right L2-3 neural foramen. Electronically signed by: Morteza Wolf MD (08/03/2018 2:47 PM) [facility]
== END | disposition home or self-care (01) ==
LOC: KCIC MRI 12:55
PROVIDERS: ATTEND Physical Medicine & Rehabilitation Sports Medicine
DX: M51.36 Other intervertebral disc degeneration, lumbar region (principal); M51.37 Other intervertebral disc degeneration, lumbosacral region; M51.46 Schmorl's nodes, lumbar region; M48.061 Spinal stenosis, lumbar region without neurogenic claudication; M43.26 Fusion of spine, lumbar region; R60.0 Localized edema
CPT/HCPCS: 72148

== ENCOUNTER 2020-07-05 18:34 | Emergency (ER) | payer MEDICARE, BC ==
[~2020-07-05] VITALS: Ht 175.3 cm; Wt 81.8 kg
[~2020-07-05 18:34] MED LIST changes: -HYDR-2758 PO; +HYDR-2761 PO
--- NOTE | 2020-07-05 18:48 | PHYS DOC ---
Past Medical History Past Medical History: Arthritis, Diabetes-Type II Additional Past Medical Histor: sleep apnea(corrected by surgery), hiatal hernia Past Surgical History: Knee Replacement, Lumbar Laminectomy Additional Past Surgical Histo: cataracts, surgery for sleep apnea Smoking Status: Never Smoker Alcohol Use: None Drug Use: None General Adult EDM: Chief Complaint: HYPOGLYCEMIA HPI: HPI: Patient is a 84 year old male who presents with a chief complaint of hypoglycemia. Per report from EMS patient was found down with a blood sugar in the 20s. Patient received IV dextrose and oral glucose prior to arrival his blood sugar somewhat improved. Patient took insulin this morning and is unsure when he last ate. Patient was found on the ground and no one witnessed how he got there. Patient denies any recent illnesses and any pain other than chronic right shoulder pain. Review of Systems: Review of Systems: Constitutional: Denies fever or chills. [] Eyes: Denies change in visual acuity. [] HENT: Denies nasal congestion or sore throat. [] Respiratory: Denies cough or shortness of breath. [] Cardiovascular: Denies chest pain or edema. [] GI: Denies abdominal pain, nausea, vomiting, bloody stools or diarrhea. [] : Denies dysuria. [] Musculoskeletal: Denies back pain but has a chronic right shoulder pain Integument: Denies rash. [] Neurologic: Denies headache, focal weakness or sensory changes. [] Endocrine: Denies polyuria or polydipsia. [] Lymphatic: Denies swollen glands. [] Psychiatric: Denies depression or anxiety. [] Heart Score: Risk Factors: Risk Factors: DM, Current or recent (<one month) smoker, HTN, HLP, family history of CAD, obesity. Risk Scores: Score 0 - 3: 2.5% MACE over next 6 weeks - Discharge Home Score 4 - 6: 20.3% MACE over next 6 weeks - Admit for Clinical Observation Score 7 - 10: 72.7% MACE over next 6 weeks - Early Invasive Strategies Allergies: Allergies: Allergies Coded Allergies Type Severity Reaction Last Updated Verified meperidine Allergy Unknown 02/28/16 Yes Physical Exam: PE: Constitutional: Well developed, well nourished, no acute distress, non-toxic appearance. [] HENT: Normocephalic, atraumatic, bilateral external ears normal, oropharynx moist, no oral exudates, nose normal. [] Eyes: PERRLA, EOMI, conjunctiva normal, no discharge. [] Neck: Normal range of motion, no tenderness, supple, no stridor. [] Cardiovascular:Heart rate regular rhythm, peripheral pulses are intact, cap refill is brisk Lungs & Thorax: Bilateral breath sounds clear, no respiratory distress Abdomen: soft, no tenderness, no masses, no pulsatile masses. [] Skin: Warm, dry, no erythema, no rash. [] Back: No tenderness, no CVA tenderness. [] Extremities: Mild tenderness to right shoulder, this is chronic. No cyanosis, no clubbing, ROM intact, no edema. [] Neurologic: Alert and oriented X 3, normal motor function, normal sensory function, no focal deficits noted. [] Psychologic: Affect normal, judgement normal, mood normal. [] Current Patient Data: Labs: Laboratory Tests Test 07/05/20 18:40 07/05/20 21:00 07/05/20 21:20 07/05/20 22:44 White Blood Count 11.2 x10^3/uL Red Blood Count 4.57 x10^6/uL Hemoglobin 14.0 g/dL Hematocrit 41.1 % Mean Corpuscular Volume 90 fL Mean Corpuscular Hemoglobin 31 pg Mean Corpuscular Hemoglobin Concent 34 g/dL Red Cell Distribution Width 14.6 % Platelet Count 225 x10^3/uL Neutrophils (%) (Auto) 82 % Lymphocytes (%) (Auto) 10 % Monocytes (%) (Auto) 7 % Eosinophils (%) (Auto) 0 % Basophils (%) (Auto) 0 % Neutrophils # (Auto) 9.2 x10^3/uL Lymphocytes # (Auto) 1.1 x10^3/uL Monocytes # (Auto) 0.8 x10^3/uL Eosinophils # (Auto) 0.0 x10^3/uL Basophils # (Auto) 0.0 x10^3/uL Sodium Level 138 mmol/L Potassium Level 3.4 mmol/L Chloride Level 102 mmol/L Carbon Dioxide Level 29 mmol/L Anion Gap 7 Blood Urea Nitrogen 15 mg/dL Creatinine 0.9 mg/dL Estimated GFR (Cockcroft-Gault) 80.0 BUN/Creatinine Ratio 17 Glucose Level 133 mg/dL Glucose (Fingerstick) 109 mg/dL 76 mg/dL 118 mg/dL Calcium Level 9.1 mg/dL Total Bilirubin 0.3 mg/dL Aspartate Amino Transf (AST/SGOT) 18 U/L Alanine Aminotransferase (ALT/SGPT) 20 U/L Alkaline Phosphatase 112 U/L Total Protein 7.4 g/dL Albumin 3.4 g/dL Albumin/Globulin Ratio 0.9 Urine Collection Type Unknown Urine Color Yellow Urine Clarity Clear Urine pH 7.0 Urine Specific [place] 1.015 Urine Protein 30 mg/dL Urine Glucose (UA) Negative mg/dL Urine Ketones (Stick) Negative mg/dL Urine Blood Negative Urine Nitrite Negative Urine Bilirubin Negative Urine Urobilinogen Dipstick 1.0 mg/dL Urine Leukocyte Esterase Small Urine RBC Occ /HPF Urine WBC 11-20 /HPF Urine Squamous Epithelial Cells Few /LPF Urine Bacteria Few /HPF Urine Hyaline Casts Few /HPF Urine Mucus Mod /LPF Laboratory Tests Test 07/05/20 18:40 Glucose (Fingerstick) 109 mg/dL (70-99) H Vital Signs: Vital Signs Date Time Temp Pulse Resp B/P (MAP) Pulse Ox O2 Delivery O2 Flow Rate FiO2 07/05/20 18:35 97.4 87 18 123/71 (88) 98 Room Air 97.4 EKG: EKG: [] EKG interpreted by me normal sinus rhythm with rate 88 left axis, first- degree AV block, nonspecific ST changes Radiology/Procedures: Radiology/Procedures: [][facility] [address] [place] [address] IMAGING REPORT Signed PATIENT: ANDRES MARTINEZ DACCOUNT: [id number] : 1935 LOCATION: ER AGE: 84 SEX: M EXAM STATUS: REG ER ORD. PHYSICIAN: ERIN HENRY MD REASON: ams PROCEDURE: CT HEAD WO CONTRAST STUDY: CT head without contrast INDICATION: Altered mental status. COMPARISON: 10/01/2016 TECHNIQUE: Axial CT imaging through the head without the use of intravenous contrast. Sagittal and coronal reformats were obtained. One or more of the following individualized dose reduction techniques were utilized for this examination: 1. Automated exposure control 2. Adjustment of the mA and/or kV according to patient size 3. Use of iterative reconstruction technique. FINDINGS: No acute intracranial hemorrhage. Freed-white matter differentiation is maintained. No localized mass effect or midline shift. Parenchymal volume loss with ex vacuo ventricular prominence. Scattered patchy hypoattenuation within the bihemispheric subcortical/periventricular white matter. This is nonspecific but most frequently seen in the setting of chronic microvascular ischemic change. Intracranial atherosclerotic calcifications. No relevant change in the appearance of the orbits, scalp or calvarium. Partially seen facial surgical hardware. Degenerative changes at the temporomandibular joints. No layering fluid within the visualized paranasal sinuses. Normally aerated mastoid air cells and middle ears. IMPRESSION: 1. No acute intracranial abnormality by CT. 2. Chronic/senescent findings as detailed above. Electronically signed by: LESLYE TORRES MD (07/05/2020 8:10 PM) [id number] DICTATED and SIGNED BY: LESLYE TORRES MD DATE: 07/05/202009 [facility] [address] [place] [address] IMAGING REPORT Signed PATIENT: ANDRES MARTINEZ DACCOUNT: [id number] : 1935 LOCATION: ER AGE: 84 SEX: M EXAM STATUS: REG ER ORD. PHYSICIAN: ERIN HENRY MD REASON: ams PROCEDURE: PORTABLE CHEST 1V EXAM: PORTABLE CHEST 1V INDICATION: Reason: ams / Spl. Instructions: / History: . TECHNIQUE: Single view COMPARISON: Chest x-ray 09/30/2016. FINDINGS: The heart size is normal. The great vessels appear unremarkable. There is no hilar or mediastinal mass. A small hiatal hernia remains present. The lungs show increased lucency at the lung apices suggesting underlying COPD. Questionable nodular opacity in the lateral right lung base. Otherwise no focal abnormality in the lungs noted. There is no pleural effusion or pneumothorax. Bones are demineralized and moderately advanced degenerative changes in the right glenohumeral joint are noted. IMPRESSION: Findings suggesting underlying COPD with possible nodular opacity at the right lung base. Consider correlation with [address] No definite acute superimposed process otherwise shown. Electronically signed by: Azeem Austin MD (07/05/2020 9:06 PM) [facility] DICTATED and SIGNED BY: AZEEM AUSTIN MD DATE: 07/05/202105 Course & Med Decision Making: Course & Med Decision Making Pertinent Labs and Imaging studies reviewed. (See chart for details) [] 84-year-old male arrives via EMS with a hypoglycemic episode. Patient ob served for multiple hours in ER and is stable. Repeat blood sugar is 116. Patient has tolerated p.o. in the ER. Rest of his work-up reveals a mild urinary tract infection otherwise he stable. Family given copies of the imaging and told to follow-up on the chest x-ray with a possible nodular area at the base. Dragon Disclaimer: Dragon Disclaimer: This electronic medical record was generated, in whole or in part, using a voice recognition dictation system. Departure Departure Impression: Primary Impression: Hypoglycemia Additional Impressions: Altered mental status UTI (urinary tract infection) Disposition: 01 HOME, SELF-CARE Condition: STABLE Referrals: ROBERT MIRANDA MD (PCP) 2-3 days Patient Instructions: Hypoglycemia (Low Blood Sugar), Urinary Tract Infection Additional Instructions: EMERGENCY DEPARTMENT GENERAL DISCHARGE INSTRUCTIONS THANK YOU for coming to [facility] Emergency Department (ED) today and trusting us with your care. We trust that you had a positive experience in our Emergency Department. If you wish to speak to the department Management you can contact the legal department manager at . YOUR FOLLOW UP INSTRUCTIONS ARE FOLLOWS: Do you have a private doctor? If you do not have a private doctor, please ask for a resource list of physicians or clinics that may be able to assist you with follow up care. The Emergency Physician has interpreted your x-rays. The X-ray specialist will also review them. If there is a change in the findings you will be notified in 48 hours when at all possible. A lab test or lab culture may have been done, your results will be reviewed and you will be notified if you need a change in treatment. ADDITIONAL INSTRUCTIONS AND INFORMATION Your care today has been supervised by a physician who is specially trained in emergency care. Many problems require more than one evaluation for a complete diagnosis and treatment. We recommend that you schedule your follow up appointment as recommended to ensure complete treatment of your illness or injury. If you are unable to obtain follow up care and continue to have a problem, or if your condition worsens we recommend that you return to the ED. We are not able to safely determine your condition over the phone nor are we able to give sound medical advice over the phone. For these safety reasons, if you call for medical advice we will ask you to come to the ED for further evaluation If you have any questions regarding these discharge instructions please call the ED at . SAFETY INFORMATION In the interest of safety, wellness, and injury prevention; we encourage you to wear your seatbelt, if you smoke; quit smoking, and we encourage your family to use protective helmet for bicycling and other sporting events that present an increased risk for head injury. IF YOUR SYMPTOMS WORSEN OR NEW SYMPTOMS DEVELOP, OR YOU HAVE CONCERNS ABOUT YOUR CONDITION; OR IF YOUR CONDITION WORSENS WHILE YOU ARE WAITING FOR YOUR FOLLOW UP APPOINTMENT; EITHER CONTACT YOUR PRIMARY CARE DOCTOR, THE PHYSICIAN WHOSE NAME AND NUMBER YOU WERE GIVEN, OR RETURN TO THE ED IMMEDIATELY. Scripts Cephalexin (KEFLEX) 500 Mg Capsule 1 CAP PO TID for 7 Days, #21 CAP 0 Refills Prov: ERIN HENRY MD 07/05/20 ERIN HENRY MD Jul 05, 2020 18:48
[2020-07-05 18:54] LABS: BASO % 0 % (0-3); EOS % 0 % (0-3); HEMATOCRIT 41.1 % (39.0-53.0); LYMPH # 1.1 x10^3/uL (1.0-4.8); LYMPH % 10 % (24-48); MEAN CORPUSCULAR HEMOGLOBIN 31 pg (25-35); MEAN CORPUSCULAR HGB CONC 34 g/dL (31-37); MEAN CORPUSCULAR VOLUME 90 fL (79-100); MONO # 0.8 x10^3/uL (0.0-1.1); MONO % 7 % (0-9); NEUT # 9.2 x10^3/uL (1.8-7.7); NEUT % 82 % (31-73); PLATELET COUNT 225 x10^3/uL (140-400); RED BLOOD COUNT 4.57 x10^6/uL (4.30-5.70); RED CELL DISTRIBUTION WIDTH 14.6 % (11.5-14.5); WHITE BLOOD COUNT 11.2 x10^3/uL (4.0-11.0)
[2020-07-05 18:58] LABS: CALCIUM 9.1 mg/dL (8.5-10.1); CREATININE 0.9 mg/dL (0.7-1.3); POTASSIUM 3.4 mmol/L (3.5-5.1)
[2020-07-05 19:04] LABS: ALBUMIN 3.4 g/dL (3.4-5.0); ALBUMIN/GLOBULIN RATIO 0.9 (1.0-1.7); TOTAL BILIRUBIN 0.3 mg/dL (0.2-1.0); TOTAL PROTEIN 7.4 g/dL (6.4-8.2)
--- NOTE | 2020-07-05 20:12 | RAD ---
STUDY: CT head without contrast INDICATION: Altered mental status. COMPARISON: 10/01/2016 TECHNIQUE: Axial CT imaging through the head without the use of intravenous contrast. Sagittal and coronal reformats were obtained. One or more of the following individualized dose reduction techniques were utilized for this examination: 1. Automated exposure control 2. Adjustment of the mA and/or kV according to patient size 3. Use of iterative reconstruction technique. FINDINGS: No acute intracranial hemorrhage. Freed-white matter differentiation is maintained. No localized mass effect or midline shift. Parenchymal volume loss with ex vacuo ventricular prominence. Scattered patchy hypoattenuation within the bihemispheric subcortical/periventricular white matter. This is nonspecific but most frequently seen in the setting of chronic microvascular ischemic change. Intracranial atherosclerotic calcifications. No relevant change in the appearance of the orbits, scalp or calvarium. Partially seen facial surgical hardware. Degenerative changes at the temporomandibular joints. No layering fluid within the visualized paranasal sinuses. Normally aerated mastoid air cells and middle ears. IMPRESSION: 1. No acute intracranial abnormality by CT. 2. Chronic/senescent findings as detailed above. Electronically signed by: LESLYE TORRES MD (07/05/2020 8:10 PM) [id number]
--- NOTE | 2020-07-05 21:09 | RAD ---
EXAM: PORTABLE CHEST 1V INDICATION: Reason: ams / Spl. Instructions: / History: . TECHNIQUE: Single view COMPARISON: Chest x-ray 09/30/2016. FINDINGS: The heart size is normal. The great vessels appear unremarkable. There is no hilar or mediastinal mass. A small hiatal hernia remains present. The lungs show increased lucency at the lung apices suggesting underlying COPD. Questionable nodular opacity in the lateral right lung base. Otherwise no focal abnormality in the lungs noted. There is no pleural effusion or pneumothorax. Bones are demineralized and moderately advanced degenerative changes in the right glenohumeral joint are noted. IMPRESSION: Findings suggesting underlying COPD with possible nodular opacity at the right lung base. Consider correlation with [address] No definite acute superimposed process otherwise shown. Electronically signed by: Parish Cox MD (07/05/2020 9:06 PM) [facility] [place]
[2020-07-05 21:28] LABS: BILIRUBIN,URINE NEGATIVE (NEG); CLARITY,URINE CLEAR; COLOR,URINE YELLOW; NITRITE,URINE NEGATIVE (NEG); PROTEIN,URINE 30 mg/dL (NEG-TRACE)
[2020-07-05 21:36] LABS: RBC,URINE OCC /HPF (0-2)
[2020-07-05 21:37] LABS: BACTERIA,URINE FEW /HPF (0-FEW); HYALINE CASTS, URINE FEW /HPF
[2020-07-05 22:40] VITALS: BP 124/77
[2020-07-05] MEDS ORDERED: CEPH-264 PO (22:52)
--- NOTE | 2020-07-06 07:40 | EKG ---
[facility] [address] [place] [address] Test Date: 2020-07-05 Test Time: 19:15:21 Pat Name: ANDRES MARTINEZ Department: Room: Gender: M Slurry Blender: : 1935 Requested By: ERIN HENRY Order Number: [id number] Reading MD: Measurements Intervals [place] Rate: 88 P: -13 IN: 216 QRS: -8 QRSD: 92 T: 29 QT: 398 QTc: 485 Interpretive Statements SINUS RHYTHM PROLONGED IN INTERVAL LEFT ATRIAL ABNORMALITY LEFTWARD AXIS QRS(T) CONTOUR ABNORMALITY CONSISTENT WITH INFERIOR INFARCT PROBABLY OLD ABNORMAL ECG RI6.02 No previous ECG available for comparison
== END 2020-07-05 23:00 | disposition home or self-care (01) ==
LOC: ER 18:34
DX: E11.649 Type 2 diabetes mellitus with hypoglycemia without coma (principal); N39.0 Urinary tract infection, site not specified; R41.82 Altered mental status, unspecified; G89.29 Other chronic pain; M25.511 Pain in right shoulder; M19.90 Unspecified osteoarthritis, unspecified site; E11.9 Type 2 diabetes mellitus without complications; Z90.89 Acquired absence of other organs; Z98.890 Other specified postprocedural states; Z88.8 Allergy status to other drugs, medicaments and biological substances
CPT/HCPCS: 36415; 70450; 71045; 80053; 81001; 82962; 85025; 87086; 93005; 99285

== ENCOUNTER 2020-07-10 13:57 | Emergency (ER) | payer MEDICARE, BC ==
[~2020-07-10] VITALS: Ht 182.9 cm; Wt 97.7 kg
[~2020-07-10 13:57] MED LIST changes: +CEPH-264 PO
[2020-07-10 14:46] LABS: BASO % 0 % (0-3); EOS # 0.1 x10^3/uL (0.0-0.7); EOS % 2 % (0-3); HEMATOCRIT 40.5 % (39.0-53.0); HEMOGLOBIN 13.6 g/dL (13.0-17.5); LYMPH # 1.2 x10^3/uL (1.0-4.8); LYMPH % 18 % (24-48); MEAN CORPUSCULAR HEMOGLOBIN 31 pg (25-35); MEAN CORPUSCULAR HGB CONC 34 g/dL (31-37); MEAN CORPUSCULAR VOLUME 91 fL (79-100); MONO # 0.8 x10^3/uL (0.0-1.1); MONO % 11 % (0-9); NEUT # 4.6 x10^3/uL (1.8-7.7); NEUT % 68 % (31-73); PLATELET COUNT 206 x10^3/uL (140-400); RED BLOOD COUNT 4.46 x10^6/uL (4.30-5.70); RED CELL DISTRIBUTION WIDTH 14.9 % (11.5-14.5); WHITE BLOOD COUNT 6.8 x10^3/uL (4.0-11.0)
[2020-07-10 14:58] LABS: CALCIUM 9.1 mg/dL (8.5-10.1); CREATININE 0.8 mg/dL (0.7-1.3); GFR 91.7; POTASSIUM 3.6 mmol/L (3.5-5.1)
[2020-07-10 15:05] LABS: ALBUMIN 3.4 g/dL (3.4-5.0); ALBUMIN/GLOBULIN RATIO 0.9 (1.0-1.7); MAGNESIUM 2.1 mg/dL (1.8-2.4); TOTAL BILIRUBIN 0.4 mg/dL (0.2-1.0); TOTAL PROTEIN 7.2 g/dL (6.4-8.2)
--- NOTE | 2020-07-10 15:15 | PHYS DOC ---
Past Medical History Past Medical History: Arthritis, Diabetes-Type II Additional Past Medical Histor: sleep apnea(corrected by surgery), hiatal hernia (JAHAIRA VALERO DO) Past Surgical History: Knee Replacement, Lumbar Laminectomy Additional Past Surgical Histo: cataracts, surgery for sleep apnea (JAHAIRA VALERO DO) Smoking Status: Never Smoker Alcohol Use: None Drug Use: None (JAHAIRA VALERO DO) General Adult EDM: Chief Complaint: HYPOGLYCEMIA HPI: HPI: Patient is a 84 year old male who was brought here by EMS from home due to low blood sugar. Patient daughter came by to check on him today, it took a long time for him to open the door. When she got inside, he was acting confused. She called EMS. EMS checked his blood sugar and it was 30. Patient was given 100 ml of D10 BY EMS. Rechecked the blood sugar and it was 90. Patient did not eat breakfast or lunch today. He checked his blood sugar and it was 300 so he gave himself 60 units of insulin. Patient said he has not been eating regularly lately. He has been drinking BOOST in place of regular food. Patient denies any chest pain, no abdominal pain, no headache, no neck pain.. Patient was seen here 5 days ago for the same problem. Patient is on insulin, on metformin but he does not take metformin regularly. Patient denies any cough or fever. Patient denies any chest pain, no neck pain, no headache. (JAHAIRA VALERO DO) Review of Systems: Review of Systems: Constitutional: Denies fever or chills. [] Eyes: Denies change in visual acuity. [] HENT: Denies nasal congestion or sore throat. [] Respiratory: Denies cough or shortness of breath. [] Cardiovascular: Denies chest pain or edema. [] GI: Denies abdominal pain, nausea, vomiting, bloody stools or diarrhea. [] : Denies dysuria. [] Musculoskeletal: Denies back pain or joint pain. [] Integument: Denies rash. [] Neurologic: Denies headache, focal weakness or sensory changes. [] Endocrine: Denies polyuria or polydipsia. [] Lymphatic: Denies swollen glands. [] Psychiatric: Denies depression or anxiety. [] (JAHAIRA VALERO DO) Heart Score: Risk Factors: Risk Factors: DM, Current or recent (<one month) smoker, HTN, HLP, family history of CAD, obesity. Risk Scores: Score 0 - 3: 2.5% MACE over next 6 weeks - Discharge Home Score 4 - 6: 20.3% MACE over next 6 weeks - Admit for Clinical Observation Score 7 - 10: 72.7% MACE over next 6 weeks - Early Invasive Strategies (JAHAIRA VALERO DO) Allergies: Allergies: Allergies Coded Allergies Type Severity Reaction Last Updated Verified meperidine Allergy Unknown 02/28/16 Yes (JAHAIRA VALERO DO) Physical Exam: PE: Constitutional: Well developed, well nourished, no acute distress, non-toxic appearance. [] HENT: Normocephalic, atraumatic, bilateral external ears normal, oropharynx moist, no oral exudates, nose normal. [] Eyes: PERRLA, EOMI, conjunctiva normal, no discharge. [] Neck: Normal range of motion, no tenderness, supple, no stridor. [] Cardiovascular:Heart rate regular rhythm, no murmur [] Lungs & Thorax: Bilateral breath sounds clear to auscultation [] Abdomen: Bowel sounds normal, soft, no tenderness, no masses, no pulsatile masses. [] Skin: Warm, dry, no erythema, no rash. [] Back: No tenderness, no CVA tenderness. [] Extremities: No tenderness, no cyanosis, no clubbing, ROM intact, no edema. [] Neurologic: Alert and oriented X 3, normal motor function, normal sensory function, no focal deficits noted. [] Psychologic: Affect normal, judgement normal, mood normal. [] (JAHAIRA VALERO DO) Current Patient Data: Labs: Laboratory Tests Test 07/10/20 14:07 07/10/20 14:35 Glucose (Fingerstick) 129 mg/dL (70-99) H White Blood Count 6.8 x10^3/uL (4.0-11.0) Red Blood Count 4.46 x10^6/uL (4.30-5.70) Hemoglobin 13.6 g/dL (13.0-17.5) Hematocrit 40.5 % (39.0-53.0) Mean Corpuscular Volume 91 fL (79-100) Mean Corpuscular Hemoglobin 31 pg (25-35) Mean Corpuscular Hemoglobin Concent 34 g/dL (31-37) Red Cell Distribution Width 14.9 % (11.5-14.5) H Platelet Count 206 x10^3/uL (140-400) Neutrophils (%) (Auto) 68 % (31-73) Lymphocytes (%) (Auto) 18 % (24-48) L Monocytes (%) (Auto) 11 % (0-9) H Eosinophils (%) (Auto) 2 % (0-3) Basophils (%) (Auto) 0 % (0-3) Neutrophils # (Auto) 4.6 x10^3/uL (1.8-7.7) Lymphocytes # (Auto) 1.2 x10^3/uL (1.0-4.8) Monocytes # (Auto) 0.8 x10^3/uL (0.0-1.1) Eosinophils # (Auto) 0.1 x10^3/uL (0.0-0.7) Basophils # (Auto) 0.0 x10^3/uL (0.0-0.2) Sodium Level 141 mmol/L (136-145) Potassium Level 3.6 mmol/L (3.5-5.1) Chloride Level 104 mmol/L (98-107) Carbon Dioxide Level 28 mmol/L (21-32) Anion Gap 9 (6-14) Blood Urea Nitrogen 16 mg/dL (8-26) Creatinine 0.8 mg/dL (0.7-1.3) Estimated GFR (Cockcroft-Gault) 91.7 BUN/Creatinine Ratio 20 (6-20) Glucose Level 125 mg/dL (70-99) H Calcium Level 9.1 mg/dL (8.5-10.1) Magnesium Level 2.1 mg/dL (1.8-2.4) Total Bilirubin 0.4 mg/dL (0.2-1.0) Aspartate Amino Transferase (AST) 24 U/L (15-37) Alanine Aminotransferase (ALT) 27 U/L (16-63) Alkaline Phosphatase 96 U/L (46-116) Total Protein 7.2 g/dL (6.4-8.2) Albumin 3.4 g/dL (3.4-5.0) Albumin/Globulin Ratio 0.9 (1.0-1.7) L Laboratory Tests 07/10/20 14:35 Laboratory Tests 07/10/20 14:35 Vital Signs: Vital Signs Date Time Temp Pulse Resp B/P (MAP) Pulse Ox O2 Delivery O2 Flow Rate FiO2 07/10/20 14:34 70 11 126/68 (87) 94 Room Air 07/10/20 13:57 97.4 97.4 (JAHAIRA VALERO DO) EKG: EKG: [] (JAHAIRA VALERO DO) Radiology/Procedures: Radiology/Procedures: [] (JAHAIRA VALERO DO) Course & Med Decision Making: Course & Med Decision Making Pertinent Labs and Imaging studies reviewed. (See chart for details) Patient is an 84-year-old man who was evaluated in the ER due to low blood sugar. Patient has been given food to eat in the ER, his blood sugar will be monitored here for several hours. If his blood sugar is stabilized patient will be discharged home. Discussed with him and his daughter who area amenable to plan of care. Patient's care was endorsed to Dr. Robles, awaiting reevaluation of blood sugar. (JAHAIRA VALERO DO) Course & Med Decision Making Repeat blood glucose 141. Patient awake and alert eating with daughter. Discussed at length insulin and diabetes management and the importance of having food with his insulin. (JESSICA ROBLES MD) Dragon Disclaimer: Dragon Disclaimer: This electronic medical record was generated, in whole or in part, using a voice recognition dictation system. (JAHAIRA VALERO DO) Departure Departure Impression: Primary Impression: Hypoglycemia Condition: IMPROVED Referrals: ROBERT MIRANDA MD (PCP) PLEASE CALL YOUR FAMILY PHYSICIAN FOR FOLLOW UP ON TUESDAY Patient Instructions: 1800 Calorie Diet for Diabetes Meal Planning, Hypoglycemia (Low Blood Sugar) JAHAIRA VALERO DO Jul 10, 2020 15:15 JESSICA ROBLES MD Jul 10, 2020 18:08
[2020-07-10 17:34] VITALS: BP 140/81
== END 2020-07-10 18:27 | disposition home or self-care (01) ==
LOC: ER 13:58
DX: E11.649 Type 2 diabetes mellitus with hypoglycemia without coma (principal); R41.0 Disorientation, unspecified; M19.90 Unspecified osteoarthritis, unspecified site; Z90.89 Acquired absence of other organs; Z98.890 Other specified postprocedural states; Z88.8 Allergy status to other drugs, medicaments and biological substances
CPT/HCPCS: 36415; 80053; 82962; 83735; 85025; 99285